=== PATIENT | female | born 1935 | race Caucasian/White ===

== ENCOUNTER → 2017-11-18 13:23 | Outpatient (CLI) | payer MEDICARE, SELFPAY ==
--- NOTE | 2017-11-18 14:00 | ECHOD_ITS ---
Reason For Study: CAD Procedure This was a 2D Doppler, Color Flow transthoracic echocardiogram. Exam performed in department. Left Ventricle Normal size and thickness. The estimated ejection fraction is 65 %. Stage 1 diastolic dysfunction. No regional wall motion abnormalities noted. Right Ventricle Normal size and thickness. Normal systolic function. Atria Normal left atrium. Normal right atrium. Normal atrial septum. Mitral Valve Mild diffuse mitral valve thickening. Mild (1+) mitral valve insufficiency. Tricuspid Valve Normal tricuspid valve. Mild (1+) tricuspid valve insufficiency. Right ventricular systolic pressure estimated to be 36 mmHg. Aortic Valve Normal aortic valve. Trisinus/trileaflet aortic valve. Pulmonic Valve Normal pulmonic valve. Great Vessels Normal aortic root. Normal arch. Normal inferior vena cava. Inferior vena cava collapse with sniff. Pericardium/Pleural No pericardial effusion. MMode/2D Measurements & Calculations LVIDd: 4.7 cm IVSd: 0.74 cm Ao root diam: 3.0 cm LVIDs: 3.0 cm LVPWd: 0.75 cm LA dimension: 3.3 cm RVDd: 3.2 cm FS: 36.3 % LAV(MOD-bp): 38.0 ml LA A4 area: 15.1 cm2 RA A4 area: 13.6 cm2 LAV(MOD-bp) Indexed: 23.9 ml/m2 LAV(MOD-sp2): 40.6 ml LAV(MOD-sp4): 33.6 ml Doppler Measurements & Calculations MV E max cristina: 73.3 cm/sec Ao V2 max: 126.1 cm/sec LV V1 max: 86.7 cm/sec MV A max cristina: 84.2 cm/sec Ao max P.4 mmHg LV V1 max P.0 mmHg MV E/A: 0.87 PA V2 max: 87.5 cm/sec PI end-d cristina: 145.7 cm/sec TR max cristina: 284.7 cm/sec TR max P.4 mmHg Interpretation Summary The estimated ejection fraction is 65 %. Stage 1 diastolic dysfunction. Mild (1+) mitral valve insufficiency. Mild (1+) tricuspid valve insufficiency. Right ventricular systolic pressure estimated to be 36 mmHg. There is no comparison study available. Ordering Physician: David Rangel Referring Physician: KIANA SALGADO Performed By: Fay Rose, JOSE, RVT
== END ==
PROVIDERS: Family Provider Internal Medicine; PCP Internal Medicine; Visit Provider Internal Medicine Cardiovascular Disease
DX: I51.9 Heart disease, unspecified (principal)
CPT/HCPCS: 93306

== ENCOUNTER → 2017-12-03 12:21 | Outpatient (CLI) | payer MEDICARE, SELFPAY ==
--- NOTE | 2017-12-03 13:00 | STE_ITS ---
Reason For Study: CAD/ASHD Stress Results Protocol: Syed Protocol Maximum Predicted HR: 138 bpm Target HR: 117 bpm% Max imum Predicted HR: 106 % DurationHeart Rate Stage (mm:ss) (bpm) BP BASELINE 69 148/82 STAGE 1 3:00 13 4 180/62 STAGE 2 3:00 14 6 192/60 RECOVERY 86 178/90 Stress Duration: 6:00 mm:ss Maximum Stress HR: 146 bpm Baseline Echocardiogram Findings The estimated ejection fraction is 55 %. Stress Echo Wall motion Data Resting WMIntermediate WMStress WM Resting Wall Motion Wall Motion Stress No regional wall motion Mid-Anterior : Mildly abnormalities noted. hypokinetic. Lateral [place] : Hypokinetic. EKG Data NSR wtih LBBB. The patient exercised according to the regular Syed protocol for a total duration of 6:01. The maximum heart rate attained was 148 beats per minute. This was 107% of maximum predicted heart rate. The patient exercised into stage 3 of the Syed protocol. During stress, there were no ST or T wave changes noted to suggest ischemia. No clinical angina was noted. Interpretation Summary The estimated ejection fraction is 55 %. Mid-Anterior : Mildly hypokinetic Lateral [place] : Hypokinetic Abnormal, adequate, treadmill echocardiogram. Positive for ischemia by echocardiographic criteria. Patient developed mid anterior and, lateral, and apical hypokinesis at peak exercise. No anginal symptoms noted. Rare PVC noted. Hypertensive blood pressure response to exercise. Average exercise capacity for age. Test terminated due to the attainment of target heart rate. Patient tolerated procedure well. No complications. Ordering Physician: David Rangel Referring Physician: David Rangel Performed By: Fay Rose, RDCS, RVT
== END ==
PROVIDERS: Family Provider Internal Medicine; PCP Internal Medicine; Referring Provider Internal Medicine Cardiovascular Disease; Visit Provider Internal Medicine Cardiovascular Disease
DX: I25.10 Atherosclerotic heart disease of native coronary artery without angina pectoris (principal); I27.20 Pulmonary hypertension, unspecified; E78.5 Hyperlipidemia, unspecified; I44.7 Left bundle-branch block, unspecified; I10 Essential (primary) hypertension
CPT/HCPCS: 93017; 93350

== ENCOUNTER → 2017-12-16 09:51 | Outpatient (CLI) | payer MEDICARE, SELFPAY ==
--- NOTE | 2017-12-16 10:15 | RAD_ITS ---
XR Chest 2 Views INDICATION: pulmonary hypertension COMPARISON: None FINDINGS: Heart size and pulmonary vascularity are within normal limits. The lungs are clear without evidence of airspace consolidation or pleural effusion. The osseous structures are grossly unremarkable. RAD/Chest PA and Lateral IMPRESSION: No radiographic evidence of acute intrathoracic disease. at 1955 Reported and signed by: Candy Justin MD Electronically Signed: Candy Justin MD at 18:54 EST Tel , Service support ,
[2017-12-16 11:20] LABS: Absolute Neutrophil Count 3.8 X10^3/uL (2.0-7.7); Basophil# 0.03 X10^3/uL; Basophil% 0.6 % (0-1); Eosinophil# 0.29 X10^3/uL; Eosinophils% 5.5 % (0-5); Hematocrit 38.8 % (37-47); Hemoglobin 13.2 g/dl (12.0-15.0); Lymphocyte % 16.9 % (19-41); Mean Corpuscular Hgb 32.7 pg (27.0-32.0); Mean Platelet Vol. 9.6 fl (6.2-12.0); Monocyte# 0.27 X10^3/uL; Monocyte% 5.1 % (0-10); Neutrophil # 3.81 X10^3/uL (2.7-7.7); Neutrophil % 71.7 % (47-70); POSITIVE COUNT NO; POSITIVE DIFFERENTIAL NO; POSITIVE MORPHOLOGY NO; Platelet Count 237 K/mm3 (150-450); RBC Distribution Width CV 12.2 % (11.6-14.6); RBC Distribution Width SD 41.5 fl (35.1-43.9); Red Blood Count 4.04 M/mm3 (4.2-5.4); White Blood Count 5.3 K/mm3 (4.4-11.0)
[2017-12-16 11:31] LABS: International Normalized Ratio 1.1; Prothrombin Time (Protime)PT. 14.4 SECONDS (11.7-14.9)
[2017-12-16 11:32] LABS: Partial Thromboplast Time 28.1 Seconds (24.1-36.2)
[2017-12-16 11:42] LABS: Anion Gap 6 (5-15); BUN 14 mg/dL (7-18); BUN/Creat Ratio 16.1 RATIO (10-20); Calcium,Total 9.2 mg/dL (8.5-10.1); Chloride 104 mmol/L (98-107); Creatinine, Serum 0.87 mg/dL (0.55-1.02); EST Glomerular Filtration Rate 66 mL/min (>60); Est Glom Filt Rate - Afr Amer 80 mL/min (>60); Glucose 94 mg/dL (74-106); Potassium 4.5 mmol/L (3.5-5.1); Sodium Level 142 mmol/L (136-145)
== END ==
PROVIDERS: Family Provider Internal Medicine; PCP Internal Medicine; Visit Provider Internal Medicine Cardiovascular Disease
DX: R94.39 Abnormal result of other cardiovascular function study (principal); I36.1 Nonrheumatic tricuspid (valve) insufficiency; I34.0 Nonrheumatic mitral (valve) insufficiency; I27.20 Pulmonary hypertension, unspecified; E78.5 Hyperlipidemia, unspecified; E11.9 Type 2 diabetes mellitus without complications; I44.7 Left bundle-branch block, unspecified; I10 Essential (primary) hypertension; I25.10 Atherosclerotic heart disease of native coronary artery without angina pectoris; Z95.5 Presence of coronary angioplasty implant and graft
CPT/HCPCS: 36415; 71046; 80048; 85025; 85610; 85730

== ENCOUNTER 2017-12-23 07:43 | Day surgery (SDC) | payer MEDICARE, SELFPAY ==
[2017-12-22 11:05] VITALS: BMI 21.6
[2017-12-23] VITALS (22 sets, daily range): BP systolic 124–188; BP diastolic 48–75; PULSE 55–82; RESP 12–25; TEMP 36.6–37.2; O2SAT 93–100; BMI 23.0; BMI 21.6
--- NOTE | 2017-12-23 09:36 | ED.RN ---
DR FULLER ASKED THAT THE NS RUN @ 150 FOR THE ENTIRE LITER AND THE NITRO DRIP RUN AT 5 MCG THEN DC AT NOON
--- NOTE | 2017-12-23 10:02 | EKG12_ITS ---
Test Reason : POST CATH Blood Pressure : / mmHG Vent. Rate : 063 BPM Atrial Rate : 063 BPM P-R Int : 220 ms QRS Dur : 140 ms QT Int : 448 ms P-R-T Axes : 077 -20 099 degrees QTc Int : 458 ms Sinus rhythm with 1st degree A-V block Left bundle branch block Abnormal ECG When compared with ECG of 07-NOV-2006 08:24, Premature ventricular complexes are no longer Present ID interval has increased Confirmed by MELLY RANGEL ([id number]), department editor GEOVANNY SAWYER ([id number]) on 12/28/2017 2:32:23 PM Referred By: Melly Rangel Confirmed By:MELLY RANGEL
[2017-12-23 10:31] LABS: ACT Activated Clotting Time 235 sec (74-137)
[2017-12-23 10:56] LABS: Hematocrit 35.8 % (37-47); Mean Corp Hgb Conc 33.5 g/gl (32-36); Mean Corpuscular Hgb 32.3 pg (27.0-32.0); Mean Corpuscular Volume 96.5 fL (81-99); Mean Platelet Vol. 9.1 fl (6.2-12.0); Platelet Count 226 K/mm3 (150-450); RBC Distribution Width CV 12.2 % (11.6-14.6); RBC Distribution Width SD 41.6 fl (35.1-43.9); Red Blood Count 3.71 M/mm3 (4.2-5.4); White Blood Count 6.2 K/mm3 (4.4-11.0)
[2017-12-23 10:59] LABS: Scan Indicated on CBC? Y/N NO
[2017-12-23] MEDS: 0.9% Normal Saline 1,000 ML 150 ML IV (11:00)
[2017-12-23 11:02] LABS: CPK Total, Creatine Kinase 102 U/L (26-192)
--- NOTE | 2017-12-23 11:17 | CRPHASE1 ---
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:: David Rangel Admit Date:: 12/23/17 Risk Factors/Lifestyle Smoking Status: Never smoker Hx Hypertension: Yes - ON MEDS Hx Diabetes Mellitus Type 2: Yes - DIET ONLY Height: 1.6 m Weight:: 55.338 kg BMI: 21.6 Post-Menopausal: Yes ETOH: No Caffeine: Yes Substance Abuse: No Family History: Family History (Last Updated 12/16/17 @ 08:48 by Burak Tatum) Mother Diabetes Hypertension Father Diabetes CVA (cerebral vascular accident) Daughter Diabetes Pulmonary hypertension Phase I Education Given On:: [place], Nutrition, Antiplatelet medication, CHF, Diabetes - Type II Hospital Course Cardiac Cath Date:: 12/23/17 Medical/Surgical History [place]:: No CAD:: Yes Diabetes Type II:: Yes Hypertension:: Yes Dyslipidemia:: Yes PTCA:: Yes - 3 YEARS AGO Discharge/Home/Social Eval Marital Status: Patient Lives With::
[2017-12-23] MEDS: Labetalol 100 MG Tablet PO ×2 (11:18→18:52)
--- NOTE | 2017-12-23 11:27 | CRPHASE1_ITS ---
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:: David Rangel Admit Date:: 12/23/17 Risk Factors/Lifestyle Smoking Status: Never smoker Hx Hypertension: Yes - ON MEDS Hx Diabetes Mellitus Type 2: Yes - DIET ONLY Height: 1.6 m Weight:: 55.338 kg BMI: 21.6 Post-Menopausal: Yes ETOH: No Caffeine: Yes Substance Abuse: No Family History: Family History (Last Updated 12/16/17 @ 08:48 by Burak Tatum) Mother Diabetes Hypertension Father Diabetes CVA (cerebral vascular accident) Daughter Diabetes Pulmonary hypertension Phase I Education Given On:: [place], Nutrition, Antiplatelet medication, CHF, Diabetes - Type II Hospital Course Cardiac Cath Date:: 12/23/17 Medical/Surgical History [place]:: No CAD:: Yes Diabetes Type II:: Yes Hypertension:: Yes Dyslipidemia:: Yes PTCA:: Yes - 3 YEARS AGO Discharge/Home/Social Eval Marital Status: Patient Lives With::
--- NOTE | 2017-12-23 11:28 | CRPH1.INSTRU ---
General Education CAD and cardiac anatomy and function:: Patient communicates acknowledgment, Family communicates acknowledgment Explanation of diagnoses and procedures:: Patient communicates acknowledgment, Family communicates acknowledgment Sign/Symptoms of NH:: Patient communicates acknowledgment, Family communicates acknowledgment Antiplatelet therapy: Patient communicates acknowledgment, Family communicates acknowledgment Proper use of NTG-SL: Patient communicates acknowledgment, Family communicates acknowledgment Emergency procedures and activation of EMS: Patient communicates acknowledgment, Family communicates acknowledgment Compliance of all prescribed medications: Patient communicates acknowledgment, Family communicates acknowledgment Smoking Patient Nicotine/Smoking Risk Factors Are:: Never smoked Dyslipidemia Recommendations Include:: Lipid profile not available - ON MEDS Overweight/Obesity Patient Overweight/Obesity Risk Factors Are:: BMI Normal [24-29 & > 65 years old] - ON DIET FOR DIABETES Overweight/Obesity:: Patient communicates acknowledgment, Family communicates acknowledgment - ON DIET FOR DIABETES Hypertension Recommendations Include:: Maintain BP <130/85 Hypertension:: Patient communicates acknowledgment, Family communicates acknowledgment - ON MEDS Heart Disease Patient Heart Disease Risk Factors Are:: Family history of heart disease < 65 years old, Previous cardiac event Recommendations Include:: Educated family members of their risk Heart Disease Response Code:: Patient communicates acknowledgment, Family communicates acknowledgment Diabetes Patient Diabetes Risk Factors Are:: Elevated blood sugars Recommendations Include:: Maintain fasting blood sugars 70-110 md/dL, Maintain HgbA1c of 6% or less Diabetes:: Patient communicates acknowledgment, Family communicates acknowledgment - DIET ONLY Metabolic Syndrome Patient Metabolic Syndrome Risk Factors Are [3 of 5]:: Fasting blood sugar > 100 mg/dL, Hypertension Recommendations Include:: Patient is diabetic Metabolic Syndrome Response Code:: Patient communicates acknowledgment, Family communicates acknowledgment Sedentary Recommendations Include:: Benefits of regular exercise, Discussed home walking program Sedentary Response Code:: Patient communicates acknowledgment, Family communicates acknowledgment Stress Patient Stress Risk Factors Are:: Patient denies stress as a risk factor
--- NOTE | 2017-12-23 11:31 | CRPH1.INST_ITS ---
General Education CAD and cardiac anatomy and function:: Patient communicates acknowledgment, Family communicates acknowledgment Explanation of diagnoses and procedures:: Patient communicates acknowledgment, Family communicates acknowledgment Sign/Symptoms of [place]:: Patient communicates acknowledgment, Family communicates acknowledgment Antiplatelet therapy: Patient communicates acknowledgment, Family communicates acknowledgment Proper use of NTG-SL: Patient communicates acknowledgment, Family communicates acknowledgment Emergency procedures and activation of EMS: Patient communicates acknowledgment , Family communicates acknowledgment Compliance of all prescribed medications: Patient communicates acknowledgment, Family communicates acknowledgment Smoking Patient Nicotine/Smoking Risk Factors Are:: Never smoked Dyslipidemia Recommendations Include:: Lipid profile not available - ON MEDS Overweight/Obesity Patient Overweight/Obesity Risk Factors Are:: BMI Normal [24-29 & > 65 years old ] - ON DIET FOR DIABETES Overweight/Obesity:: Patient communicates acknowledgment, Family communicates acknowledgment - ON DIET FOR DIABETES Hypertension Recommendations Include:: Maintain BP <130/85 Hypertension:: Patient communicates acknowledgment, Family communicates acknowledgment - ON MEDS Heart Disease Patient Heart Disease Risk Factors Are:: Family history of heart disease < 65 years old, Previous cardiac event Recommendations Include:: Educated family members of their risk Heart Disease Response Code:: Patient communicates acknowledgment, Family communicates acknowledgment Diabetes Patient Diabetes Risk Factors Are:: Elevated blood sugars Recommendations Include:: Maintain fasting blood sugars 70-110 md/dL, Maintain HgbA1c of 6% or less Diabetes:: Patient communicates acknowledgment, Family communicates acknowledgment - DIET ONLY Metabolic Syndrome Patient Metabolic Syndrome Risk Factors Are [3 of 5]:: Fasting blood sugar > 100 mg/dL, Hypertension Recommendations Include:: Patient is diabetic Metabolic Syndrome Response Code:: Patient communicates acknowledgment, Family communicates acknowledgment Sedentary Recommendations Include:: Benefits of regular exercise, Discussed home walking program Sedentary Response Code:: Patient communicates acknowledgment, Family communicates acknowledgment Stress Patient Stress Risk Factors Are:: Patient denies stress as a risk factor
--- NOTE | 2017-12-23 12:42 | CL.I_ITS ---
Patient Name: ISABEL GRAY Study Date: 12/23/2017 Performing: Ht: 63 inches 160.02 cm : 1935 Wt: 122 lbs 55.338 kg Age: 82 Gender: female BSA: 1.57 PROCEDURE(S) PERFORMED FW28-AFT/COR/LV TC02-CMG W OR WO PTCA, SINGLE CORONARY ARTERY CLINICAL PROFILE AND CO-MORBIDITIES INDICATIONS: Unstable Angina Stress/Imaging Stress Echocardiogram: Yes Result: Positive Intermediate Risk Stress Echocardiogra m: Positive Intermediate Risk Angina Classification Anginal Classification w/in 2 Weeks: CCS III CAD Presentations: Other: Dyspnea on exertion. 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 Successful Mynx deployment. RECOMMENDATIONS Referred for immediate PCI Highly recommend quitting all tobacco products Follow up with primary echo vascular tech Risk factor modification JOE Indefinitleangelica Plavix for at least 12 months Routine post interventional care Refer for Outpatient Cardiac Rehab Manual sheath removal per protocol Follow up with Dr. Juan Carlos Woods Plavix for at least 12 months DESCRIPTION OF PROCEDURE The patient arrived to the procedure lab. The risks and benefits of the procedure as well as a full d escription of our services here and lack of surgical backup were fully explained to the patient and/o r their significant other prior to the catheterization. The Timeout was completed, verifying the owen ect patient and procedure. The patient's procedural site was prepped and draped in the usual fashion. Local anesthetic was given subcutaneously to right groin region with Lidocaine 2%. Using a modified Seldinger technique, arterial access was obtained via the right femoral artery, a 4Fr sheath was inse rted. Left Coronary Artery selective angiography was performed in multiple views using a 4 Fr. JL5 c atheter. Right Coronary Artery selective angiography was then performed in multiple views using a 4 F r. 3DRC catheter. Left Ventriculography was performed in VALDOVINOS projection using a 4 Fr. Pigtail cathete r. LV to AO pullback pressures were then recordedThe images were reviewed and options discussed. A de cision was then made to proceed with an Intervention, IVUS or other adjunct procedure. Arterial sheath was exchanged for a 6 Fr Sheath EBU 3.5 Guide catheter was inserted and engaged into the LCA. BMW Guide wire was advanced to the LAD. Angiogram performed pre balloon dilatation. 2.0x8 em erge Balloon catheter was advanced across lesion in the LAD, proximal. PTCA balloon inflated at 10 at ms for 15 secs Angiogram performed post balloon dilatation. 3.0x12 synergy Drug Eluting stent was adv anced across the lesion in the LAD, proximal. 3.0x8 NC emerge Balloon catheter was inserted post sten t. Angiogram performed post stent deployment.. Contrast was injected through the sheath and the Right Iliac and Femoral artery were assessed for possible closure device.. The arterial sheath was pulled and a Mynx closure device was deployed for hemostasis. CORONARY ANGIOGRAPHY DOMINANCE: Right Dominant LEFT HEART ASSESSMENT Left Ventricular Ejection Fraction: by LV Gram 50-55 % Depressed Left Ventricular systolic function Normal Left Ventricular End Diastolic Pressure Anterior Hypokinesis - Mild LEFT MAIN: Angiographically normal LEFT ANTERIOR DECENDING ARTERY: PROX LAD: 75 % Stenosis MID LAD: Instent restenosis 10 % CIRCUMFLEX ARTERY: Mild luminal irregularities less than 30% RIGHT CORONARY ARTERY: MID RCA: Moderate luminal irregularities up to 50% INTERVENTION INFORMATION LESION SITE: LAD (Proximal) Pre intervention FAIZAN flow: 3 Post Stenosis: 0 % Post intervention FAIZAN flow: 3 Lesion Devices: Weeks .014 BMW Norris Straight 190cm Medtronic 6 Fr EBU3.5 100cm Guide Catheter Ty Sci EMERGE MR 2.00x08 BALLOON Ty Sci Synergy MR CJ 3.00x12 Ty Sci NC EMERGE MR 3.00x08 BALLOON Lesion Complexity: Non-High/Non-C, lesion at bifurcation: No, thrombus present: No, lesion length: 12 mm, culprit lesion: Yes Pre Stenosis: 75 % PROCEDURE: Drug Eluting Stent with pre and post dilatation COMPLICATIONS No Complications PROCEDURE MEDICATIONS Versed 1 mg IV Oxygen: 2 L/min via nasal cannula Heparin 6000 unit(s) IV 12/23/2017 09:04:54 Nitro 200 mcg IC 12/23/2017 09:08:31 Nitro glycerin 25mg / 250ml D5W @ 5 mcg/min IV started 12/23/2017 09:09:57 IV Fluids: .9 NaCl increased to open ml/hr 12/23/2017 09:10:05 IV Fluids: .9 NaCl decreased to 150 ml/hr 12/23/2017 09:20:04 SUMMARY OF HEMODYNAMIC DATA Time AIR REST ECG 08:24:14 ECG 08:41:09 AO 195/60 (109) SA 08:59:25 LV 192/-17, 15 09:04:24 LV 193/-16, 10 09:04:31 LVp 198/-3, 19 09:05:10 AOp 192/50 (100) 09:05:15
[2017-12-23 13:11] LABS: M R Staph aureus DNA By PCR Negative (Negative); Probe Check PASS; Specimen Processing Control PASS
--- NOTE | 2017-12-23 14:44 | NURSING ---
NO SUPPLEMENT ORDERED BECAUSE NOT INDICATED. PT NORMAL WEIGHT ENTERED INCORRECTLY
[2017-12-23 17:18] LABS: Hematocrit 33.6 % (37-47); Hemoglobin 11.1 g/dl (12.0-15.0); Mean Corpuscular Hgb 31.7 pg (27.0-32.0); Mean Platelet Vol. 8.7 fl (6.2-12.0); Platelet Count 185 K/mm3 (150-450); RBC Distribution Width CV 12.8 % (11.6-14.6); RBC Distribution Width SD 44.1 fl (35.1-43.9)
[2017-12-23 17:26] LABS: CPK Total, Creatine Kinase 82 U/L (26-192)
[2017-12-23 17:51] LABS: Scan Indicated on CBC? Y/N NO
[2017-12-23] MEDS: Lisinopril 20 MG Tablet PO (18:52)
--- NOTE | 2017-12-23 19:04 | NURSING ---
reviewed Pavel Alexander RN charting and agree with her assessment findings
[2017-12-23] MEDS: Atorvastatin Calcium 80 MG Tablet PO (21:37)
[2017-12-23 22:52] LABS: Hematocrit 33.3 % (37-47); Hemoglobin 10.9 g/dl (12.0-15.0); Mean Corp Hgb Conc 32.7 g/gl (32-36); Mean Corpuscular Hgb 31.8 pg (27.0-32.0); Mean Corpuscular Volume 97.1 fL (81-99); Platelet Count 220 K/mm3 (150-450); RBC Distribution Width CV 12.3 % (11.6-14.6); RBC Distribution Width SD 41.8 fl (35.1-43.9); Red Blood Count 3.43 M/mm3 (4.2-5.4); Scan Indicated on CBC? Y/N NO
[2017-12-24] VITALS (16 sets, daily range): BP systolic 96–188; BP diastolic 47–126; PULSE 58–84; RESP 12–115; TEMP 36.4–36.7; O2SAT 94–100
[2017-12-24] MEDS: diazePAM 5 MG Tablet PO (01:33)
[2017-12-24 04:52] LABS: Hematocrit 34.3 % (37-47); Hemoglobin 11.6 g/dl (12.0-15.0); Mean Corp Hgb Conc 33.8 g/gl (32-36); Mean Corpuscular Hgb 32.7 pg (27.0-32.0); Mean Corpuscular Volume 96.6 fL (81-99); Mean Platelet Vol. 9.3 fl (6.2-12.0); Platelet Count 215 K/mm3 (150-450); RBC Distribution Width CV 12.3 % (11.6-14.6); RBC Distribution Width SD 41.7 fl (35.1-43.9); Red Blood Count 3.55 M/mm3 (4.2-5.4); White Blood Count 6.8 K/mm3 (4.4-11.0)
[2017-12-24 04:59] LABS: Scan Indicated on CBC? Y/N NO
[2017-12-24 05:04] LABS: Anion Gap 6 (5-15); BUN 12 mg/dL (7-18); Calcium,Total 8.5 mg/dL (8.5-10.1); Chloride 105 mmol/L (98-107); Creatinine, Serum 0.75 mg/dL (0.55-1.02); EST Glomerular Filtration Rate 79 mL/min (>60); Est Glom Filt Rate - Afr Amer 95 mL/min (>60); Estimated Creatinine Clearance 35.88 ml/min; Glucose 91 mg/dL (74-106); Potassium 4.2 mmol/L (3.5-5.1); Sodium Level 141 mmol/L (136-145)
--- NOTE | 2017-12-24 05:55 | EKG12_ITS ---
Test Reason : AM Blood Pressure : / mmHG Vent. Rate : 057 BPM Atrial Rate : 057 BPM P-R Int : 212 ms QRS Dur : 140 ms QT Int : 442 ms P-R-T Axes : 134 -27 153 degrees QTc Int : 430 ms Sinus bradycardia Left bundle branch block Abnormal ECG When compared with ECG of 23-DEC-2017 09:57, MANUAL COMPARISON REQUIRED, DATA IS UNCONFIRMED Confirmed by MELLY RANGEL ([id number]), technical writer and editor GEOVANNY SAWYER ([id number]) on 12/28/2017 2:32:42 PM Referred By: Melly Rangel Confirmed By:MELLY RANGEL
--- NOTE | 2017-12-24 07:56 | PCM.DC.CCA ---
Discharge Diet: No Restrictions - You may continue your normal diet. Discharge Activity: - - Do not lift anything greater than 10 lbs for 3 days May shower in (days): 1 - No tub baths for 5 days Lifting Restrictions: 10 pounds and also avoid any pushing or pulling for 3 days after your test. Call your doctor if your incision/area has: Increased Pain/ Swelling, Increased Redness, Foul Smelling Discharge, Swelling at the incision site Call your doctor if you observe: Fever of 101 or Higher, Shortness of breath, Chest pain Remove Dressing in (days):: 1 Cleanse incision/area with: Soap & Water Additional Dressing/Incision Instructions:: Keep the dressing (bandage) on until the next morning. You may then shower, but do not take a tub bath for 5 days after your test. It is normal to have some tenderness and discomfort at the puncture site. Sometimes bruising also occurs. However, if pain, numbness, or coldness occurs below the puncture site (in your leg, toes, arms or fingers) call your doctor at once. You may have a small, marble sized knot at the puncture site. This is normal. Do not rub it. It will go away in 4-6 weeks. Bleeding can occur from the area where the puncture was done. Blood may spurt or drip from the site. If blood spurts, apply pressure right away to stop bleeding and call 911. Although rare, bleeding into the tissue (hematoma) can also occur. If this happens, a large, firm area goose egg under the skin will appear. If any of these occur, lie down as flat as you can and have someone apply firm pressure to the cath site with a gauze pad or a clean washcloth for 10-15 minutes. Call 911 or go to the Emergency Department. Additional Instructions: You were started on Isosorbide to help control your BP. Monitor your BP reading at home. When I see you in 2 weeks we can re-evaluate your medications. As a reminder, you will need to stay on Plavix for at least one year before it is stopped. When I see you we can further discuss cardiac rehab. Allergies/Adverse Reactions: Allergies Penicillins Allergy (Unknown, Verified 12/16/17 09:24) Unknown Medications to take at Discharge ascorbate calcium 500 mg tablet 500 mg PO QDAY 10/30/17 aspirin 81 mg tablet,delayed release 81 mg PO QDAY 10/30/17 atorvastatin 80 mg tablet 80 mg PO QDAY 10/30/17 cholecalciferol (vitamin D3) 400 unit capsule 400 unit PO QDAY 10/30/17 labetalol 100 mg tablet 100 mg PO BID 10/30/17 lisinopril 20 mg tablet 20 mg PO QDAY 10/30/17 meclizine 25 mg tablet 25 mg PO TID PRN tab 10/30/17 nitroglycerin 0.4 mg sublingual tablet 0.4 mg SUBLINGUAL Q5-15M PRN 10/30/17 clopidogrel 75 mg tablet 75 mg PO QDAY #30 tab 12/16/17 Isosorbide Mononitrate [Imdur] 30 mg PO DAILY #30 tab 12/24/17 The following prescriptions were given: Isosorbide Mononitrate [Imdur] 30 mg PO DAILY #30 tab Primary Care Physician: Mary Lindo MD [Primary Care Provider] - Please follow up with your Primary Care Physician in: 4 weeks Please Follow Up With: Estela Quispe PA When: 01/07 at 1pm Cardiac Rehabilitation Info Cardiac Rehabilitation Program Information: Cardiac Rehabilitation is important for patients like you who are recovering from a heart problem. Cardiac rehabilitation programs are recognized as integral to the continued care of the patient with coronary heart disease. The cardiac rehabilitation program is designed to optimize a patient's physical, psychological, and social functioning. Health congregational care pastor work in cardiac rehabilitation programs and assist you with getting the treatments you need to get stronger and healthier - like exercise, healthy eating habits, and medications. Cardiac rehabilitation has been show to help people with heart problems live longer and have better life enjoyment than people who do not go to cardiac rehabilitation. Please contact the Cardiac Rehabilitation Program at [facility] at in two weeks if you have not heard from them.
[2017-12-24] MEDS: Labetalol 100 MG Tablet PO (08:41)
[2017-12-24] MEDS: Aspirin E.C. 81 MG Tablet PO (08:41)
[2017-12-24] MEDS: Lisinopril 20 MG Tablet PO (08:41)
[2017-12-24] MEDS: Isosorbide Mononitrate 30 MG Tablet PO (08:42)
[2017-12-24] MEDS: Clopidogrel Bisulfate 75 MG Tablet PO (08:42)
== END 2017-12-24 12:36 | disposition home or self-care (01) ==
LOC: CLSP 07:44 → ICU 09:31
PROVIDERS: Family Provider Internal Medicine; PCP Internal Medicine; Visit Provider Internal Medicine Cardiovascular Disease
DX: T82.858A Stenosis of other vascular prosthetic devices, implants and grafts, initial encounter (principal); I25.10 Atherosclerotic heart disease of native coronary artery without angina pectoris; R06.02 Shortness of breath; I10 Essential (primary) hypertension; E78.5 Hyperlipidemia, unspecified; I44.7 Left bundle-branch block, unspecified; E11.9 Type 2 diabetes mellitus without complications; Z79.82 Long term (current) use of aspirin; Z95.5 Presence of coronary angioplasty implant and graft; Z87.891 Personal history of nicotine dependence
CPT/HCPCS: 80048; 82550; 85027; 85347; 87641; 92928; 93005; 93458; 97802; 99152; 99153; C1760; J7030; J7040; C1725; C1769; C1874; C1887; C1894; C9600

== ENCOUNTER → 2018-01-07 15:24 | Outpatient (CLI) | payer MEDICARE, SELFPAY ==
[2017-12-23 11:21] VITALS: BMI 21.6
== END ==
PROVIDERS: Visit Provider Physician Assistant Medical
DX: L08.9 Local infection of the skin and subcutaneous tissue, unspecified (principal); T14.8XXA Other injury of unspecified body region, initial encounter
CPT/HCPCS: 87070; 87075; 87077; 87186; 87205

== ENCOUNTER 2018-04-10 19:13 | Emergency (ER) | payer MEDICARE, SELFPAY ==
[2017-12-23 11:21] VITALS: BMI 21.6
[2018-04-10 19:13] VITALS: BP 205/86; PULSE 79; RESP 18; TEMP 36.9; O2SAT 98; BMI 22.1
--- NOTE | 2018-04-10 19:18 | ED.RN ---
RN CALLED FOR EKG, PULLED OLD EKG'S FOR
--- NOTE | 2018-04-10 19:20 | EKG12_ITS ---
Test Reason : PALPITATIONS Blood Pressure : / mmHG Vent. Rate : 073 BPM Atrial Rate : 073 BPM P-R Int : 210 ms QRS Dur : 142 ms QT Int : 416 ms P-R-T Axes : 071 -15 126 degrees QTc Int : 458 ms Sinus rhythm with 1st degree A-V block with frequent Premature ventricular complexes Left bundle branch block Abnormal ECG Confirmed by GATITO WRIGHT, KUMAR ([id number]), make up editor GEOVANNY SAWYER ([id number]) on 04/15/2018 3:46:11 PM Referred By: CHECO/PADMINI Confirmed By:KUMAR MEDEROS MD
--- NOTE | 2018-04-10 19:39 | ED.DCSUM_ITS ---
- ER Visit Summary Date of Service: 04/10/18 Chief Complaint: Palpitations History of Present Illness: The patient is a [address] of CAD with cardiac stent on Plavix. I will see him back controlled diabetes with hypertension and high cholesterol. States when in [employer]ental [employer] around 5 PM started having palpitations. She denies any chest pain. She denies any shortness of breath. No leg pain or swelling. She denies any episodes where she felt like she might pass out or was feeling lightheaded. She has had these years ago which were benign. Physical Examination: Well-appearing older female. Vital signs are stable and afebrile. She is in no acute distress. Pulse ox 90% room air no signs of hypoxia. H EENT exam unremarkable. Neck nontender no lymphadenopathy. Lungs clear to auscultation bilaterally. Heart regular rhythm occasional PVC. No murmur. Abdomen soft nontender. She is moving all 4 extremities. Neurovascular intact. Strong radial pulses. Calves are nontender without edema or cords. Neurologically she is awake alert with no focal motor deficits. Test Results: EKG shows a sinus rhythm rate is 73 with PVCs. She also has a known left bundle branch block which is unchanged from prior. CBC normal. BMP normal. Troponin normal. Emergency Department Course and Treatment: Repeat exam patient doing well at 2042. Exam, history and lab work consistent with PVCs. She will be discharged home. Treatment Plan: Discharge and follow-up with primary care physician as needed. Disposition: Discharge Impression: Acute palpitations secondary to PVCs. History of CAD with cardiac stent Anticoagulated on Plavix. This note was generated with Anna Lozabai dictation software. It may contain incorrect words, spelling, and punctuation that were not noted in review of the chart prior to signing ED Disposition - Plan for ED Patient: Chief Complaint: Palpitations Referrals: Mary Lindo MD [Primary Care Provider] -
[2018-04-10 20:08] LABS: Absolute Lymphocyte Count 1.35 X10^3/ul (0.83-4.51); Absolute Neutrophil Count 4.1 X10^3/uL (2.0-7.7); Basophil# 0.03 X10^3/uL; Basophil% 0.5 % (0-1); Eosinophil# 0.48 X10^3/uL; Eosinophils% 7.7 % (0-5); Hematocrit 37.3 % (37-47); Hemoglobin 12.4 g/dl (12.0-15.0); Lymphocyte # 1.35 X10^3/ul (4.0); Lymphocyte % 21.6 % (19-41); Mean Corp Hgb Conc 33.2 g/gl (32-36); Mean Corpuscular Hgb 31.8 pg (27.0-32.0); Mean Corpuscular Volume 95.6 fL (81-99); Mean Platelet Vol. 9.2 fl (6.2-12.0); Monocyte# 0.32 X10^3/uL; Monocyte% 5.1 % (0-10); Neutrophil # 4.06 X10^3/uL (2.7-7.7); Neutrophil % 64.9 % (47-70); Platelet Count 268 K/mm3 (150-450); RBC Distribution Width CV 12.6 % (11.6-14.6); RBC Distribution Width SD 43.3 fl (35.1-43.9); White Blood Count 6.3 K/mm3 (4.4-11.0)
[2018-04-10 20:12] LABS: Anion Gap 7 (5-15); BUN 18 mg/dL (7-18); BUN/Creat Ratio 18.2 RATIO (10-20); Calcium,Total 8.9 mg/dL (8.5-10.1); Chloride 104 mmol/L (98-107); Creatinine, Serum 0.99 mg/dL (0.55-1.02); EST Glomerular Filtration Rate 57 mL/min (>60); Est Glom Filt Rate - Afr Amer 69 mL/min (>60); Estimated Creatinine Clearance 36.24 ml/min; Glucose 141 mg/dL (74-106); Potassium 4.1 mmol/L (3.5-5.1); Sodium Level 140 mmol/L (136-145)
[2018-04-10 20:14] LABS: POSITIVE COUNT NO; POSITIVE DIFFERENTIAL NO; POSITIVE MORPHOLOGY NO
[2018-04-10 20:35] VITALS: BP 135/57; PULSE 68; RESP 15; O2SAT 94
--- NOTE | 2018-04-10 20:43 | ED.DEP ---
ED Disposition - Plan for ED Patient: Disposition: Home or Assisted Living Chief Complaint: Palpitations Instructions: Premature Ventricular Contractions Referrals: Mary Lindo MD [Primary Care Provider] - 1 Week if not improving Additional Instructions: Follow-up with your doctor as needed. Your lab work today was unremarkable except for premature ventricular contractions on your EKG which is a benign palpitation.
[2018-04-10 20:47] VITALS: BP 139/54; PULSE 71; RESP 15; O2SAT 96
== END 2018-04-10 20:51 | disposition home or self-care (01) ==
PROVIDERS: Emergency Provider Emergency Medicine; Family Provider Internal Medicine; PCP Internal Medicine
DX: I49.3 Ventricular premature depolarization (principal); I25.10 Atherosclerotic heart disease of native coronary artery without angina pectoris; Z95.5 Presence of coronary angioplasty implant and graft; Z79.01 Long term (current) use of anticoagulants; I44.7 Left bundle-branch block, unspecified; E11.9 Type 2 diabetes mellitus without complications; I10 Essential (primary) hypertension; E78.00 Pure hypercholesterolemia, unspecified
CPT/HCPCS: 80048; 84484; 85025; 93005; 99284

== ENCOUNTER → 2018-05-14 15:25 | Outpatient (CLI) | payer MEDICARE, SELFPAY ==
[2017-12-23 11:21] VITALS: BMI 21.6
--- NOTE | 2018-05-14 14:00 | LES_PTH ---
PATIENT: DAVID GRAY LOC: [facility]#:[id number] AGE/SX: 89/F ROOM: RE05/14/[address]: Dr. Juan Saucedo MD : 1935 BED: DIS: SPEC #: [id number] RECD: 05/14/18 15:19 STATUS: BRIAN ISABEL #: [id number] MARIA ALEJANDRA: 05/14/18 14:[address]: Juan Saucedo DEPT: SURGICAL PATHOLOGY RECD BY: Adam Cha Tissues: Skin of face, NOS Procedures: Surgery Specimen Level IV HEADER OPERATION: Shave biopsy, right cheek lesion PRE-OP DIAGNOSIS: Right cheek, uncertain neoplasm TISSUE SUBMITTED: Right cheek tissue MICROSCOPIC DIAGNOSIS Skin lesion of right cheek, shave biopsy: Skin with actinic change and associated mild atypia. Hyperkeratosis and parakeratosis. AM:landry 05/18/18 COMMENT Excision of lesion is recommended for definitive classification. Clinical correlation is suggested. Case has been reviewed in consultation with Dr. Quick who concurs with the above diagnosis. IDC:SJ MICROSCOPIC DESCRIPTION Slides are reviewed. GROSS DESCRIPTION Received in fixative is one container labeled with the patient's name and designated right cheek shave biopsy. The specimen consists of a light cornelius shave biopsy of skin measuring 0.4 x 0.2 x <0.1 cm. The specimen is submitted in its entirety in one cassette. / AM:rg 05/17/18 TC:5 CPT: 32722
== END ==
PROVIDERS: Visit Provider Surgery
DX: R23.4 Changes in skin texture (principal)
CPT/HCPCS: 88305

== ENCOUNTER 2018-05-18 16:04 | Emergency (ER) | payer MEDICARE, SELFPAY ==
[2017-12-23 11:21] VITALS: BMI 21.6
[2018-05-18 16:05] VITALS: BP 212/91; PULSE 69; RESP 16; TEMP 37.1; O2SAT 97; BMI 22.0
[2018-05-18 16:31] VITALS: BP 218/78; PULSE 89; RESP 12; O2SAT 97
--- NOTE | 2018-05-18 16:37 | ED.DCSUM_ITS ---
- ER Visit Summary Date of Service: 05/18/18 Chief Complaint: Hypertension History of Present Illness: The patient is a 82 F with a history of hypertension. Patient had previously been on labetalol 100 mg twice daily. She was seen by Dr. Rangel in the office last week. Her blood pressure was high at that time and she was switched to carvedilol 6.25 mg twice a day. She took that medication for 3 days but she states her blood pressures were still in the 170s over 70s, so she stopped that medication on the fifth. She restarted her labetalol. Blood pressures in the morning approximately 2 hours after her first dose of labetalol have been well controlled. This morning she was 131/56. Blood pressure was rechecked around 2 PM this afternoon systolic blood pressure was over 200. Patient denies any headache, chest pain, palpitations, paresthesias. Physical Examination: Blood pressure in triage is 212/91, temperature 98.8, heart rate 69, respiratory rate 16, pulse ox 97% on room air. At the time of my examination her blood pressure is 218/78. Head and neck examination is unremarkable. Heart is regular rate and rhythm. Lung sounds are clear. Abdomen is soft and nontender. Neuro exam is normal. Test Results: EKG is sinus with a first-degree AV block. Left bundle branch block is noted. No sign of acute ischemia. Portable chest x-ray shows borderline cardiomegaly per my read. CBC is normal. Chemistry studies significant for sodium of 132. Emergency Department Course and Treatment: I spoke with Dr. Rangel, the patient' s enterprise resource analyst. He advised to have her stay on the labetalol, but double her lisinopril. She was given an extra dose of her lisinopril here today and will start the new dose tomorrow. Patient is to follow-up in Dr. Salas's office in 1 week for blood pressure check. Treatment Plan: [] Disposition: Discharge Impression: Hypertension This note was generated with [employer] dictation software. It may contain incorrect words, spelling, and punctuation that were not noted in review of the chart prior to signing ED Disposition - Plan for ED Patient: Chief Complaint: Hypertension Referrals: Mary Lindo MD [Primary Care Provider] -
--- NOTE | 2018-05-18 16:40 | RAD_ITS ---
STUDY: X-RAY CHEST REASON FOR EXAM: Female, 82 years old. History of cardiac stent. TECHNIQUE: AP portable. COMPARISON: December 16, 2017 FINDINGS: There is an indeterminant nodular opacity along the left cardiophrenic border. Normal size heart. Normal mediastinum and efren. Normal visualized pulmonary arteries. Normal visualized aortic arch and descending thoracic aorta. There are diffuse degenerative changes of the visualized thoracic spine. Normal visualized ribs, clavicles, and shoulders. There is no demonstrated abnormality of the visualized soft tissue structures of the upper abdomen. RAD/Chest 1 View (Portable) IMPRESSION: Indeterminate nodular density along the left cardiophrenic border, this may be secondary to a confluence of shadows or possible epicardial fat pad or cyst, consider PA and lateral radiographs for further characterization. Electronically Signed: Marcia Navarro MD at 18:02 EDT Tel , Service support ,
[2018-05-18 17:24] LABS: Absolute Lymphocyte Count 1.08 X10^3/ul (0.83-4.51); Basophil# 0.02 X10^3/uL; Basophil% 0.3 % (0-1); Eosinophil# 0.43 X10^3/uL; Eosinophils% 6.2 % (0-5); Hematocrit 36.9 % (37-47); Hemoglobin 12.2 g/dl (12.0-15.0); Lymphocyte # 1.08 X10^3/ul (4.0); Lymphocyte % 15.6 % (19-41); Mean Corp Hgb Conc 33.1 g/gl (32-36); Mean Corpuscular Hgb 31.2 pg (27.0-32.0); Mean Corpuscular Volume 94.4 fL (81-99); Monocyte# 0.35 X10^3/uL; Monocyte% 5.1 % (0-10); Neutrophil # 5.02 X10^3/uL (2.7-7.7); Neutrophil % 72.7 % (47-70); Platelet Count 248 K/mm3 (150-450); RBC Distribution Width CV 12.2 % (11.6-14.6); RBC Distribution Width SD 41.2 fl (35.1-43.9); Red Blood Count 3.91 M/mm3 (4.2-5.4); White Blood Count 6.9 K/mm3 (4.4-11.0)
[2018-05-18 17:26] LABS: POSITIVE COUNT NO; POSITIVE DIFFERENTIAL NO; POSITIVE MORPHOLOGY NO
[2018-05-18 17:27] LABS: Anion Gap 3 (5-15); BUN 18 mg/dL (7-18); BUN/Creat Ratio 20.7 RATIO (10-20); Calcium,Total 8.9 mg/dL (8.5-10.1); Chloride 98 mmol/L (98-107); Creatinine, Serum 0.87 mg/dL (0.55-1.02); EST Glomerular Filtration Rate 66 mL/min (>60); Est Glom Filt Rate - Afr Amer 80 mL/min (>60); Estimated Creatinine Clearance 41.24 ml/min; Glucose 100 mg/dL (74-106); Potassium 4.4 mmol/L (3.5-5.1); Sodium Level 132 mmol/L (136-145)
[2018-05-18] MEDS: Lisinopril 20 MG Tablet PO (17:30)
[2018-05-18 17:32] VITALS: BP 214/115; PULSE 67; RESP 18; O2SAT 97
--- NOTE | 2018-05-18 17:38 | ED.DEP ---
ED Disposition - Plan for ED Patient: Disposition: Home or Assisted Living Chief Complaint: Hypertension Instructions: ED HTN Established Referrals: David Rangel MD [STAFF PHYSICIAN] - 1 Week
[2018-05-18 17:40] VITALS: BP 221/92; PULSE 72; RESP 16; O2SAT 96
== END 2018-05-18 17:56 | disposition home or self-care (01) ==
PROVIDERS: Emergency Provider Emergency Medicine; Family Provider Internal Medicine; PCP Internal Medicine
DX: I10 Essential (primary) hypertension (principal); I44.7 Left bundle-branch block, unspecified; I44.0 Atrioventricular block, first degree; E11.9 Type 2 diabetes mellitus without complications; E78.00 Pure hypercholesterolemia, unspecified; Z95.5 Presence of coronary angioplasty implant and graft; Z87.891 Personal history of nicotine dependence
CPT/HCPCS: 71045; 80048; 85025; 93005; 99284; A4216

== ENCOUNTER 2018-07-15 08:34 | Inpatient (IN) | payer MEDICARE, SELFPAY ==
[2017-12-23 11:21] VITALS: BMI 21.6
[2018-07-15] VITALS (11 sets, daily range): BP systolic 68–163; BP diastolic 37–71; PULSE 50–108; RESP 11–16; TEMP 36.4–36.9; O2SAT 94–100; BMI 22.4; BMI 21.9; BMI 22.0
--- NOTE | 2018-07-15 08:46 | EKG12_ITS ---
Test Reason : SYNCOPE Blood Pressure : / mmHG Vent. Rate : 052 BPM Atrial Rate : 052 BPM P-R Int : 194 ms QRS Dur : 138 ms QT Int : 478 ms P-R-T Axes : 081 038 097 degrees QTc Int : 444 ms Sinus bradycardia Left bundle branch block Abnormal ECG Confirmed by GATITO WRIGHT, KUMAR ([id number]), city editor GEOVANNY SAWYER ([id number]) on 07/19/2018 2:24:17 PM Referred By: MILIND Confirmed By:KUMAR MEDEROS MD
--- NOTE | 2018-07-15 08:51 | RAD_ITS ---
STUDY: X-RAY CHEST REASON FOR EXAM: Female, 83 years old. Dizziness TECHNIQUE: Single AP portable view of the chest. COMPARISON: 3018 FINDINGS: The lungs are clear and expanded. There is no demonstrated pleural abnormality. Normal size heart. Normal mediastinum and efren. Normal visualized pulmonary arteries. Normal visualized aortic arch and descending thoracic aorta. There are diffuse degenerative changes of the visualized thoracic spine. There is degenerative osteoarthritis of the bilateral shoulders. There is no demonstrated abnormality of the visualized soft tissue structures of the upper abdomen. RAD/Chest 1 View (Portable) IMPRESSION: Degenerative changes, as described above. No demonstrated acute cardiopulmonary process. Electronically Signed: Graham Orozco MD at 9:14 EDT Tel , Service support ,
[2018-07-15] MEDS: 0.9% Normal Saline 1,000 ML 150 ML IV ×4 (08:54→23:39)
[2018-07-15 08:59] LABS: Absolute Lymphocyte Count 0.99 X10^3/ul (0.83-4.51); Absolute Neutrophil Count 3.6 X10^3/uL (2.0-7.7); Basophil# 0.02 X10^3/uL; Basophil% 0.4 % (0-1); Eosinophil# 0.32 X10^3/uL; Eosinophils% 6.4 % (0-5); Hematocrit 41.1 % (37-47); Hemoglobin 13.6 g/dl (12.0-15.0); Lymphocyte # 0.99 X10^3/ul (4.0); Lymphocyte % 19.7 % (19-41); Mean Corp Hgb Conc 33.1 g/gl (32-36); Mean Corpuscular Hgb 31.3 pg (27.0-32.0); Mean Corpuscular Volume 94.7 fL (81-99); Mean Platelet Vol. 9.1 fl (6.2-12.0); Monocyte# 0.13 X10^3/uL; Monocyte% 2.6 % (0-10); Neutrophil # 3.56 X10^3/uL (2.7-7.7); Neutrophil % 70.9 % (47-70); Platelet Count 257 K/mm3 (150-450); RBC Distribution Width CV 12.6 % (11.6-14.6); RBC Distribution Width SD 43.5 fl (35.1-43.9); Red Blood Count 4.34 M/mm3 (4.2-5.4)
[2018-07-15 09:01] LABS: POSITIVE COUNT NO; POSITIVE DIFFERENTIAL NO; POSITIVE MORPHOLOGY NO
[2018-07-15 09:13] LABS: ALB/GLOB Ratio 1.2 RATIO (0.9-2.4); AST(SGOT) 18 U/L (15-37); Alanine Aminotransfer ALT/SGPT 21 U/L (13-56); Albumin, Serum 3.6 g/dL (3.2-5.0); Alkaline Phosphatase 75 U/L (45-117); Anion Gap 7 (5-15); BUN 15 mg/dL (7-18); BUN/Creat Ratio 12.2 RATIO (10-20); Calcium,Total 9.2 mg/dL (8.5-10.1); Chloride 103 mmol/L (98-107); Creatinine, Serum 1.23 mg/dL (0.55-1.02); EST Glomerular Filtration Rate 44 mL/min (>60); Est Glom Filt Rate - Afr Amer 54 mL/min (>60); Estimated Creatinine Clearance 28.67 ml/min; Glucose 146 mg/dL (74-106); Potassium 4.3 mmol/L (3.5-5.1); Protein, Total 6.6 g/dL (6.4-8.2); Sodium Level 138 mmol/L (136-145)
[2018-07-15] MEDS: Ondansetron 4 MG/2 ML Vial IV (09:40)
[2018-07-15] MEDS: proMETHazine 25 MG/ML Syringe 12.5 MG IV (10:11)
--- NOTE | 2018-07-15 10:11 | ED.VISSUMM ---
- ER Visit Summary Date of Service: 07/15/18 Chief Complaint: [Syncope] History of Present Illness: The patient is a 83 F presents the emergency department with complaint of a syncopal episode this morning. Patient presents via EMS. Patient apparently had gone out to walk her dog when she developed some mild nausea. Patient states that she just was not feeling well and her stomach felt funny. Patient went home and felt hot and like she needed to have a bowel movement and had 2 loose stools. Patient then began vomiting x2. Patient felt lightheaded and woozy and has been noticed that she was about the past [place] so he help to lower her gently to the ground therefore there is no injury. Patient does not have any recollection of being lowered to the ground and felt that she may have passed out for a short time. Patient denies any chest pain or palpitations at that time. She denies recent illness or sick contacts. She has not had any fevers. [Patient did have a cardiac stent placed about 3 months ago.] Physical Examination: [HEENT-PERRLA, EOMI. Cranial nerves II through XII grossly intact. TMs clear. Mucous membranes moist. No adenopathy. Cardiovascular-regular rate and rhythm without murmur or ectopy Lungs-clear to auscultation, chest wall stable without crepitus or subcu emphysema Abdomen-normoactive bowel sounds, soft, nontender, no rebound or rigidity, no peritoneal signs. Extremities-intact ?4, normal range of motion, normal pulses, atraumatic] Test Results: [EKG obtained on arrival showed a sinus rhythm with a ventricular rate of 52 bpm with a left bundle branch block when compared with prior EKG the left bundle branch block is chronic. CBC with differential showed a white count of 5.0, hemoglobin 13.6, hematocrit 41, platelets 257. Chemistries unremarkable. BUN was 15 and creatinine 1.23. LFTs were normal. Troponin was less than 0.015. Chest x-ray obtained showed chronic degenerative changes.] Emergency Department Course and Treatment: [Patient did vomit in the emergency department and was medicated with Zofran initially she then developed further nausea and was given 12.5 mg of Phenergan IV. Patient had more watery stool in the emergency department. Orthostatic vital signs obtained were positive and her systolic blood pressure with standing dropped in the 60s. Patient was given a liter normal same fluid bolus.] Treatment Plan: [Admit] Disposition: [Admit] Impression: [Syncope Orthostatic hypotension Gastroenteritis] This note was generated with [employer] dictation software. It may contain incorrect words, spelling, and punctuation that were not noted in review of the chart prior to signing ED Disposition - Plan for ED Patient: Chief Complaint: Syncope Referrals: Mary Lindo MD [Primary Care Provider] -
--- NOTE | 2018-07-15 10:12 | HP.PCM_ITS ---
Problem List (1) Skin lesion Status: Acute (2) History of coronary artery stent placement Status: Chronic Comment: XOC-PHT-Nwde LAD 3.0 x 12 mm Promus Synergy 12/23/17 @ [facility] PTCA and CJ to mid LAD 11/14/2013 @ [facility] (3) Abnormal stress echocardiogram Status: Resolved (4) Left ventricular systolic dysfunction Status: Chronic Comment: EF 45% per stress echo 11/01/2013 (5) Nonrheumatic tricuspid valve regurgitation Status: Chronic Comment: mild per stress echo 11/01/13 (6) Nonrheumatic mitral valve regurgitation Status: Chronic Comment: mild per stress echo 11/01/13 (7) Pulmonary hypertension Status: Chronic Comment: RVSP 56 mmhg per stress echo 11/01/13 (8) Diabetes mellitus type II, controlled Status: Chronic (9) Hyperlipidemia Status: Chronic Qualifiers: Hyperlipidemia type: pure hypercholesterolemia Qualified Code(s): E78.00 - Pure hypercholesterolemia, unspecified; E78.0 - Pure hypercholesterolemia (10) Left bundle branch block Status: Chronic (11) Hypertension Status: Chronic Qualifiers: Hypertension type: essential hypertension Qualified Code(s): I10 - Essential (primary) hypertension (12) History of left heart catheterization Status: Chronic Comment: [facility], followed by PTCA and CJ to mid LAD 11/14/[address] Rendon @ [facility] (13) Atherosclerotic heart disease of [place] coronary artery without angina pectoris Status: Chronic Qualifiers: [place] vs. transplanted heart: [place] heart Qualified Code(s): I25.10 - Atherosclerotic heart disease of [place] coronary artery without angina pectoris Comment: Stent to LAD 12/2017 (14) Near syncope Status: Acute (15) Gastroenteritis Status: Acute History of Present Illness Date of Admission: 07/15/18 Chief Complaint: Nausea, vomiting and diarrhea and near syncope The patient is a 83 year old F who was brought to ER by EMS for near syncope symptoms after she had nausea, vomiting and diarrhea. Patient woke up fine and walked her dog. And she felt nauseated and stomach upset and went to bathroom where she had vomited and had loose bowel movement. After that she was dizzy lightheaded and does not remember. Her went to the bathroom to check as she was there for a long time. She was lethargic and perhaps syncope, although not clear. [] She was found positive orthostatic hypotension in the ER. Chest x-ray no acute change. EMS EKG sinus rhythm at 58 bpm with supraventricular complexes with left bundle branch block. Similar findings of sinus bradycardia at 52 bpm with left bundle branch block in ER Past Medical History Past Medical History (Chronic Problems): Chronic Problems (Last Reviewed 05/14/18 @ 13:45 by Zoey Wang) History of coronary artery stent placement (Chronic 12/23/17) [id number]-HQL-Txft LAD 3.0 x 12 mm Promus Synergy 12/23/17 @ [facility] PTCA and CJ to mid LAD 11/14/2013 @ [facility] Left ventricular systolic dysfunction (Chronic) EF 45% per stress echo 11/01/2013 Nonrheumatic tricuspid valve regurgitation (Chronic) mild per stress echo 11/01/13 Nonrheumatic mitral valve regurgitation (Chronic) mild per stress echo 11/01/13 Pulmonary hypertension (Chronic) RVSP 56 mmhg per stress echo 11/01/13 Diabetes mellitus type II, controlled (Chronic) Hyperlipidemia (Chronic) Left bundle branch block (Chronic) Hypertension (Chronic) History of left heart catheterization (Chronic) [facility], followed by PTCA and CJ to mid LAD 11/14/[address] Rendon @ [facility] Atherosclerotic heart disease of [place] coronary artery without angina pectoris (Chronic) Stent to LAD 12/2017 Medical History: Medical History (Last Reviewed 05/14/18 @ 13:45 by Zoey Wang) Left ventricular systolic dysfunction (Chronic) I51.9 EF 45% per stress echo 11/01/2013 Nonrheumatic tricuspid valve regurgitation (Chronic) I36.1 mild per stress echo 11/01/13 Nonrheumatic mitral valve regurgitation (Chronic) I34.0 mild per stress echo 11/01/13 Pulmonary hypertension (Chronic) I27.20 RVSP 56 mmhg per stress echo 11/01/13 Diabetes mellitus type II, controlled (Chronic) E11.9 Hyperlipidemia (Chronic) E78.5 Left bundle branch block (Chronic) I44.7 Hypertension (Chronic) I10 Atherosclerotic heart disease of [place] coronary artery without angina pectoris (Chronic) I25.10 Stent to LAD 12/2017 Allergies Penicillins Allergy (Unknown, Verified 07/15/18 08:38) Unknown Home Medications: Ambulatory Orders Medication Instructions Recorded ascorbate calcium 500 mg tablet 500 mg PO QDAY 10/30/17 aspirin 81 mg tablet,delayed 81 mg PO QDAY 10/30/17 release atorvastatin 80 mg tablet 80 mg PO QDAY 10/30/17 cholecalciferol (vitamin D3) 400 400 unit PO QDAY 10/30/17 unit capsule lisinopril 20 mg tablet 20 mg PO BID tab 04/16/18 Labetalol [Trandate (Beta Sommer)] 100 mg PO BID 05/18/18 amlodipine 10 mg tablet 10 mg PO QDAY 06/01/18 Clopidogrel Bisulfate [Clopidogrel] 75 mg PO QDAY 07/15/18 Hydrochlorothiazide 12.5 mg PO QDAY 07/15/18 Lisinopril [Zestril] 10 mg PO DAILY 07/15/18 Surgical History: Surgical History (Last Reviewed 05/14/18 @ 13:45 by Zoey Wang) History of coronary artery stent placement (Chronic) Onset Date: 12/23/17 Z95.5 ONS-HQP-Jnev LAD 3.0 x 12 mm Promus Synergy 12/23/17 @ [facility] PTCA and CJ to mid LAD 11/14/2013 @ [facility] History of left heart catheterization (Chronic) Z98.890 [facility], followed by PTCA and CJ to mid LAD 11/14/[address] Rendon @ [facility] History of heart artery stent Z95.5 Smoking Status: Never smoker - *Family History Paternal Family History: Family History (Last Reviewed 05/14/18 @ 13:45 by Zoey Wang) Mother Diabetes Hypertension Father Diabetes CVA (cerebral vascular accident) Daughter Diabetes Pulmonary hypertension Review of Systems Constitutional: Reports: Weakness, Fatigue. Denies: Chills, Fever, Weight Change HEENT: Denies: Head Aches, Sinus Congestion, Sinus Drainage Cardiovascular: Reports: Syncope. Denies: Chest Pain, Palpitations Respiratory: Denies: Cough, Shortness of breath at rest, Sputum production Gastrointestinal: Reports: Diarrhea, Nausea, Vomiting. Denies: Abdominal Pain Genitourinary: Denies: Dysuria Musculoskeletal: Denies: Joint Pain, Joint Tenderness Skin: Denies: Rash, Wounds Neurological: Denies: Numbness, Tingling, Focal weakness Psychiatric: Denies: Anxiety, Depression, Homicidal Ideations, Suicidal Ideations Hematologic/ Lymphatic: Denies: Easy Bruising, Easy Bleeding VTE Information - Inpt Only VTE Present on Admission: No VTE Mechan Device Prophylaxis: SCD's Reason prophylaxis not ordered:: Medical Contraindication - Blood in stool Patient Problems: Active and Suspected Problems (Last Reviewed 05/14/18 @ 13:45 by Zoey Wang) Near syncope (Acute) Gastroenteritis (Acute) - Physical Exam General: Alert, Oriented x3, Cooperative, Lethargic HEENT: Atraumatic, PERRLA, EOMI, Normocephalic Oral: Dry Mucosa Neck: Supple, No JVD, Negative Carotid Bruits Lungs: Clear to auscultation, Normal air movement, No rhonchi, No wheeze, No rales Cardiovascular: Regular rate, Regular Rhythm, Normal S1, Normal S2, No murmurs Abdomen: Bowel Sounds Present, Soft, Non Tender, Non-Distended Extremities: No edema, Capillary Refill Less than 3 Seconds Skin: No rashes, No breakdown Musculoskeletal: No Tenderness to Palpation of Joints or Extremities Neurological: Cranial nerves II-XII grossly intact Psych/Mental Status: Normal Affect, Appropriate Vital Signs Temp Pulse Resp BP Pulse Ox 97.6 F L 50 L 11 L 128/51 H 100 07/15/18 08:36 07/15/18 09:20 07/15/18 08:36 07/15/18 09:20 07/15/18 08:36 Oxygen Delivery Method Room Air Weight: 126 lb 15.78 oz Body Mass Index (BMI) 22.4 Laboratory Tests Past 24 Hrs 07/15/18 07/15/18 08:35 08:35 WBC 5.0 RBC 4.34 Hgb 13.6 Hct 41.1 MCV 94.7 MCH 31.3 MCHC 33.1 RDW 12.6 RDW Differential 43.5 Plt Count 257 MPV 9.1 Immature Gran % (Auto) 0.000 Neut % (Auto) 70.9 H Lymph % (Auto) 19.7 Banks % (Auto) 2.6 Eos % (Auto) 6.4 H Baso % (Auto) 0.4 Absolute Neuts (auto) 3.6 Absolute Lymphs (auto) 0.99 Total Counted Not Reportable Sodium 138 Potassium 4.3 Chloride 103 Carbon Dioxide 28.0 Anion Gap 7 BUN 15 Creatinine 1.23 H Estim Creat Clear Calc 28.67 Est GFR (MDRD) Af Amer 54 L Est GFR (MDRD) Non-Af 44 L BUN/Creatinine Ratio 12.2 Glucose 146 H Calcium 9.2 Total Bilirubin 0.70 AST 18 ALT 21 Alkaline Phosphatase 75 Troponin I < 0.015 Total Protein 6.6 Albumin 3.6 Globulin 3.0 Albumin/Globulin Ratio 1.2 Assessment/Plan All Active Problems (Last Reviewed 05/14/18 @ 13:45 by Zoey Wang) Near syncope (Acute) Gastroenteritis (Acute) Skin lesion (Acute) Abnormal stress echocardiogram (Resolved) The patient is a 83 year old F who was brought to ER by EMS for near syncope symptoms after she had nausea, vomiting and diarrhea. Patient woke up fine and walked her dog. And she felt nauseated and stomach upset and went to bathroom where she had vomited and had loose bowel movement. After that she was dizzy lightheaded and does not remember. Her went to the bathroom to check as she was there for a long time. She was lethargic and perhaps syncope, although not clear. [] She was found positive orthostatic hypotension in the ER. Chest x-ray no acute change. EMS EKG sinus rhythm at 58 bpm with supraventricular complexes with left bundle branch block. Similar findings of sinus bradycardia at 52 bpm with left bundle branch block in ER On the floor, as per the nursing staff she had some blood in the stool. 1. Near syncope with possible syncope, from orthostatic hypotension: Patient is being admitted in PCU. On IV fluid normal saline to correct dehydration. Measure orthostatic blood pressure tomorrow a.m. Serial cardiac enzymes. Patient has single-vessel coronary artery disease for which she had a stent in proximal LAD December 29. Prior to that she had positive stress echo with EF 55% and mildly hypokinetic mid anterior and lateral aspects. She follows Dr. Rangel. 2. Orthostatic hypotension: In ED, blood pressure dropped from 128/51, heart rate in supine position to 76-68/37, heart rate 47 on standing. Hold antihypertensive medications. 3. Possible viral gastroenteritis, possible GI bleed: Stool for occult blood, UA to look for hematuria. If positive, will need further workup. Currently her hemoglobin is 10.2/33.3. Previous hemoglobin 10.9 in May 2018. H&H in evening. 4. Diabetes mellitus type 2, controlled: Blood sugar is 146. Accu-Chek before meals and at bedtime and cover with NovoLog sliding scale. Other chronic comorbidities include dyslipidemia, chronic left bundle branch block, hypertension and coronary artery status post stent as mentioned above: Home medication reconciliation done. DVT prophylaxis: Bilateral SCDs. Hold pharmacological prophylaxis until issues of GI bleed is resolved Code Visit OBSV E&M: 45262 Initial observation care L3
[2018-07-15 11:49] LABS: Magnesium 2.4 mg/dL (1.6-2.6)
[2018-07-15 12:50] LABS: Cholesterol 145 mg/dL (200); High Density Lipoprotein 58 mg/dL; Triglycerides 69 mg/dL; Very Low Density Lipoprotein 14 mg/dL (5-40)
[2018-07-15 16:40] LABS: Bedside Glucose 155 mg/dL (70-110)
[2018-07-15] MEDS: Atorvastatin Calcium 80 MG Tablet PO (20:36)
[2018-07-15] MEDS: Labetalol 100 MG Tablet PO (20:37)
[2018-07-15 20:46] LABS: Bedside Glucose 170 mg/dL (70-110)
[2018-07-15 21:13] LABS: Hematocrit 38.8 % (37-47); Hemoglobin 12.8 g/dl (12.0-15.0)
[2018-07-15 23:04] LABS: Mucous, Urine 0 SEEN /hpf (<or=2+)
[2018-07-15 23:08] LABS: Color, Urine Yellow (Yellow); Glucose, Dipstick 50 mg/dl (Normal); Ketone-Dipstick 50 mg/dl (Negative); Leukocyte Esterase-Dipstick 25 /ul (Negative); Nitrite-Dipstick Negative (Negative); Occult Blood-Urine 150 /ul (Negative); Protein-Dipstick 30 mg/dl (Negative); Urine Bilirubin Dipstick Negative (Negative); Urine Clarity Clear (Clear); Urine Urobilinogen Normal (Normal)
[2018-07-15 23:20] LABS: Bacteria RARE /hpf (None Seen); Red Blood Cells-Urine 0-5 SEEN /hpf (0-5); Squamous Epithelial Cells - UA 0-5 SEEN /hpf (5-10); White Blood Cells 0-5 SEEN /hpf (0-5)
[2018-07-16] VITALS (17 sets, daily range): BP systolic 128–169; BP diastolic 49–71; PULSE 73–93; RESP 14–20; TEMP 36.6–37.7; O2SAT 93–99; BMI 21.9
--- NOTE | 2018-07-16 | IMM_PTH ---
PATIENT: DAVID GRAY LOC: [facility] U#:[id number] AGE/SX: 83/F ROOM: [facility] RE07/15/[address]: Dr. Rex Carvajal MD : 1935 BED: 1 DIS: 07/19/2018 SPEC #: [id number] RECD: 07/19/18 15:25 STATUS: BRIAN REQ #: [id number] MARIA ALEJANDRA: 07/16/18 00:[address]: Juan Saucedo DEPT: IMMUNOHISTOCHEMISTRY RECD BY: Alisha Stephens ENTERED: 07/19/18 15:25 SP TYPE: IMMUNO OTHR DR: MD Dr. Rex Worley MD Dr. Prakash Chand, MD Tissues: A - Stomach, NOS Procedures: H Pylori (initial) PHYSICIAN & INSTITUTION [place] [address] SPECIMEN INFORMATION: Tissue Source: A - Antrum biopsy Clinical Info: GI bleed, gastroenteritis Specimen Number: [id number] CPT code: 11662 METHODOLOGY: Deparaffinized sections of prefer/formalin-fixed tissue or PAP/DQ stained slides are incubated with monoclonal/polyclonal antibodies/oligonucleotide probes. Localization is made via biotin free immunoperoxidase method. Appropriate controls are performed and reacted as expected. Results on target cell population are indicated in the following table: RESULTS: ANTIBODY / CLONE RESULT Block A H Pylori (polyclonal) positive These tests were developed and their performance characteristics determined by [facility]. They may not have been cleared or approved by the U.S. Food and Drug Administration. The FDA has determined that such clearance or approval is not necessary. INTERPRETATION: A. Antrum, biopsy: Positive for Helicobacter pylori organisms. AM:landry 07/20/18
[2018-07-16] MEDS: 0.9% Normal Saline 1,000 ML 150 ML IV ×2 (05:30→11:24)
[2018-07-16 05:53] LABS: Absolute Lymphocyte Count 0.86 X10^3/ul (0.83-4.51); Absolute Neutrophil Count 14.8 X10^3/uL (2.0-7.7); Basophil# 0.01 X10^3/uL; Basophil% 0.1 % (0-1); Hematocrit 34.3 % (37-47); Hemoglobin 11.7 g/dl (12.0-15.0); Lymphocyte # 0.86 X10^3/ul (4.0); Lymphocyte % 5.3 % (19-41); Mean Corp Hgb Conc 34.1 g/gl (32-36); Mean Corpuscular Hgb 32.4 pg (27.0-32.0); Mean Platelet Vol. 9.1 fl (6.2-12.0); Monocyte# 0.68 X10^3/uL; Monocyte% 4.2 % (0-10); Neutrophil # 14.77 X10^3/uL (2.7-7.7); Neutrophil % 90.2 % (47-70); POSITIVE COUNT NO; POSITIVE DIFFERENTIAL NO; POSITIVE MORPHOLOGY NO; Platelet Count 235 K/mm3 (150-450); RBC Distribution Width CV 12.7 % (11.6-14.6); RBC Distribution Width SD 42.8 fl (35.1-43.9); Red Blood Count 3.61 M/mm3 (4.2-5.4); White Blood Count 16.4 K/mm3 (4.4-11.0)
[2018-07-16 06:29] LABS: Anion Gap 8 (5-15); BUN 12 mg/dL (7-18); BUN/Creat Ratio 15.1 RATIO (10-20); Chloride 108 mmol/L (98-107); EST Glomerular Filtration Rate 73 mL/min (>60); Est Glom Filt Rate - Afr Amer 89 mL/min (>60); Estimated Creatinine Clearance 44.08 ml/min; Glucose 136 mg/dL (74-106); Potassium 3.8 mmol/L (3.5-5.1); Sodium Level 141 mmol/L (136-145); Thyroid Stim Hormone (TSH) 0.96 uIU/mL (0.358-3.74)
[2018-07-16 06:56] LABS: Bedside Glucose 140 mg/dL (70-110)
[2018-07-16] MEDS: amLODIPine 10 MG Tablet PO (09:20)
[2018-07-16] MEDS: Lisinopril 10 MG Tablet PO (09:20)
[2018-07-16] MEDS: Labetalol 100 MG Tablet PO ×2 (09:20→21:47)
[2018-07-16 11:30] LABS: Bedside Glucose 127 mg/dL (70-110)
--- NOTE | 2018-07-16 11:33 | PCM.PN.HOSP ---
Patient Problems: Active and Suspected Problems (Last Reviewed 05/14/18 @ 13:45 by Zoey Wang) Near syncope (Acute) Gastroenteritis (Acute) Subjective: Patient dizziness, lightheadedness has resolved. Patient had 3 bowel movements yesterday and was dark red in color, small in amount. Today in the morning she had one which also dark red small in amount. Slight drop in hemoglobin/hematocrit from 13.6/41 to 11.7/34.3 Blood pressure is good. Heart rate is 70s. cardiac monitor technician shows sinus rhythm with sinus arrhythmia Vitals/I&O's: Vital Signs Temp Pulse Resp BP Pulse Ox 98.1 F 73 16 169/49 H 98 07/16/18 09:15 07/16/18 11:00 07/16/18 09:15 07/16/18 09:15 07/16/18 09:15 Oxygen Delivery Method Room Air Weight: 123 lb 15.984 oz Body Mass Index (BMI) 21.9 Orthostatic Vital Signs Start: 07/16/18 05:32 Freq: q24h Status: Active Protocol: Activity Type Activity Date Activity User E-Sign Co-Sign Detail Recorded Client Recorded Date Recorded By Document 07/16/18 05:32 AR [id number] 07/16/18 05:37 AR 07/16/18 05:32 Orthostatic Vitals Standing -Blood Pressure (90/60-120/80) 149/58 H -Extremity Use Left Arm -Pulse Rate (60-100) 87 Sitting -Blood Pressure (90/60-120/80) 151/62 H -Extremity Use Left Arm -Pulse Rate (60-100) 82 Lying -Blood Pressure (90/60-120/80) 154/55 H -Extremity Use Left Arm -Pulse Rate (60-100) 82 Intake and Output for Last 24 Hours 07/14/18 07/15/18 07/16/18 23:59 23:59 23:59 Intake Total 2062 875 / 875 Balance 2062 875 / 875 General: Alert, Oriented x3, Cooperative HEENT: Atraumatic, PERRLA, EOMI, Normocephalic Neck: Supple, No JVD, Negative Carotid Bruits Lungs: Clear to auscultation, Normal air movement, No rhonchi, No wheeze, No rales Cardiovascular: Regular rate, Regular Rhythm, Normal S1, Normal S2, No murmurs, - - Sinus arrhythmia Abdomen: Bowel Sounds Present, Soft, Non Tender, Non-Distended Extremities: No edema, Capillary Refill Less than 3 Seconds Skin: No rashes, No breakdown Musculoskeletal: No Tenderness to Palpation of Joints or Extremities, Arthritic Changes, Muscle Wasting Neurological: Cranial nerves II-XII grossly intact Psych/Mental Status: Normal Affect, Appropriate Microbiology Past 72 Hours 07/15/18 11:40 Stool Stool Lactoferrin - Final Laboratory Results 07/15/18 08:35: Magnesium 2.4 07/15/18 12:05: Troponin I < 0.015, Triglycerides 69, Cholesterol 145, LDL Cholesterol 73, VLDL Cholesterol 14, HDL Cholesterol 58 07/15/18 14:30: Troponin I < 0.015 07/15/18 16:33: POC Glucose 155 H 07/15/18 20:36: POC Glucose 170 H 07/15/18 20:49: Hgb 12.8, Hct 38.8 07/15/18 22:57: Urine Color Yellow, Urine Clarity Clear, Urine pH 5.0, Ur Specific Sun 1.020, Urine Protein 30 H, Urine Glucose (UA) 50 H, Urine Ketones 50 H, Urine Occult Blood 150 H, Urine Nitrite Negative, Urine Bilirubin Negative, Urine Urobilinogen Normal, Ur Leukocyte Esterase 25 H, Urine RBC 0-5 SEEN, Urine WBC 0-5 SEEN, Ur Squamous Epith Cells 0-5 SEEN, Urine Bacteria RARE, Urine Mucus 0 SEEN 07/16/18 05:25: Sodium 141, Potassium 3.8, Chloride 108 H, Carbon Dioxide 25.0, Anion Gap 8, BUN 12, Creatinine 0.80, Estim Creat Clear Calc 44.08, Est GFR (MDRD) Af Amer 89, Est GFR (MDRD) Non-Af 73, BUN/Creatinine Ratio 15.1, Glucose 136 H, Calcium 8.0 L, TSH 0.96 07/16/18 05:25: WBC 16.4 H, RBC 3.61 L, Hgb 11.7 L, Hct 34.3 L, MCV 95.0, MCH 32.4 H, MCHC 34.1, RDW 12.7, RDW Differential 42.8, Plt Count 235, MPV 9.1, Immature Gran % (Auto) 0.200, Neut % (Auto) 90.2 H, Lymph % (Auto) 5.3 L, Yates % (Auto) 4.2, Eos % (Auto) 0.0, Baso % (Auto) 0.1, Absolute Neuts (auto) 14.8 H, Absolute Lymphs (auto) 0.86, Total Counted Not Reportable 07/16/18 06:51: POC Glucose 140 H 07/16/18 11:23: POC Glucose 127 H Current Medications Acetaminophen (Tylenol) 650 mg PO Q6H PRN PRN PRN Reason: Mild Pain (scale 0-3)/T>100.7 Al Hydroxide/Mg Hydroxide (Mylanta Ii) 30 ml PO Q6H PRN PRN PRN Reason: Gastric burning Amlodipine Besylate (Norvasc) 10 mg PO DAILY [facility] Last Admin: 07/16/18 09:20 Dose: 10 mg Atorvastatin Calcium (Lipitor) 80 mg PO QHS [facility] Last Admin: 07/15/18 20:36 Dose: 80 mg Dextrose (D50w Syringe) 0 gm IV X1 PRN; Protocol PRN Reason: Hypoglycemia Glucagon () 1 mg IM .X1 PRN PRN Reason: Hypoglycemia Pantoprazole Sodium 40 mg/ (Sodium Chloride) 110 mls @ 330 mls/hr IV Q12 KASI Sodium Chloride () 1,000 mls @ 50 mls/hr IV .Q20H [facility] Insulin Human Lispro (Humalog Kwikpen (Bkc)) 0 unit SQ ACHS [facility]; Protocol Last Admin: 07/16/18 11:24 Dose: Not Given Labetalol HCl (Trandate) 100 mg PO BID [facility] Last Admin: 07/16/18 09:20 Dose: 100 mg Lisinopril (Zestril) 10 mg PO DAILY [facility] Last Admin: 07/16/18 09:20 Dose: 10 mg Morphine Sulfate () 1 - 2 mg IV Q4H PRN PRN PRN Reason: SEVERE PAIN (6-07/21) Nutritional Formula (Lactose Free) (Ensure Enlive) 120 ml PO 4X/DAY [facility] Last Admin: 07/16/18 09:26 Dose: Not Given Ondansetron HCl (Zofran) 4 mg IV Q8H PRN PRN PRN Reason: NAUSEA Oxycodone HCl (Oxyir) 5 mg PO Q4H PRN PRN PRN Reason: Moderate Pain (pain scale 4-5) Promethazine HCl (Phenergan) 12.5 mg IV Q6H PRN PRN PRN Reason: NAUSEA/VOMITING Sodium Chloride () 5 - 30 ml IV UD PRN PRN Reason: SALINE FLUSH Zolpidem Tartrate (Ambien (Generic)) 5 mg PO QHS PRN PRN PRN Reason: INSOMNIA Medical Necessity - Tobacco Use Smoking Status: Never smoker Assessment/Plan All Active Problems (Last Reviewed 05/14/18 @ 13:45 by Zoey Wang) Near syncope (Acute) Gastroenteritis (Acute) Skin lesion (Acute) Abnormal stress echocardiogram (Resolved) The patient is a 83 year old F who was brought to ER by EMS for near syncope symptoms after she had nausea, vomiting and diarrhea. Patient woke up fine and walked her dog. And she felt nauseated and stomach upset and went to bathroom where she had vomited and had loose bowel movement. After that she was dizzy lightheaded and does not remember. Her went to the bathroom to check as she was there for a long time. She was lethargic and perhaps syncope, although not clear. [] She was found positive orthostatic hypotension in the ER. Chest x-ray no acute change. EMS EKG sinus rhythm at 58 bpm with supraventricular complexes with left bundle branch block. Similar findings of sinus bradycardia at 52 bpm with left bundle branch block in ER On the floor, as per the nursing staff she had some blood in the stool. 1. Near syncope with from orthostatic hypotension, probably from GI blood loss or colitis: Patient is being admitted in PCU. Patient was given IV fluid initially to correct dehydration and she is well hydrated now. Repeat orthostatic blood pressure does not show drop and is negative today. Serial troponins are negative. Patient has single-vessel coronary artery disease for which she had a stent in proximal LAD December 2017. Prior to that she had positive stress echo with EF 55% and mildly hypokinetic mid anterior and lateral aspects. She follows Dr. Rangel. 2. Acute anemia, blood loss anemia from lower GI bleed, from antiplatelet agents: Orthostatic hypotension was present in ER but now resolved after IV fluid rehydration. In ED, blood pressure dropped from 128/51, heart rate in supine position to 76-68/37, heart rate 47 on standing. Watch her vitals. H&H every [address] Saucedo and requested to see her and he agreed. We will keep the patient on clear liquid. IV Protonix 40 mg twice daily Hold aspirin and Plavix for now. She had 6 months after stent in LAD in December 2017. 3. Possible viral gastroenteritis, or colitis. Stool for leukocytes positive. Stool Bacteroides panel ordered. Previous hemoglobin 10.9 in May 2018. H&H monitoring. 4. Diabetes mellitus type 2, controlled: Blood sugar is 146. Accu-Chek before meals and at bedtime and cover with NovoLog sliding scale. Other chronic comorbidities include dyslipidemia, chronic left bundle branch block, hypertension and coronary artery status post stent as mentioned above: Home medication reconciliation done. DVT prophylaxis: Bilateral SCDs. Hold pharmacological prophylaxis until issues of GI bleed is resolved Code Visit Inpatient E&M: [id number] [facility] Hosp L3
--- NOTE | 2018-07-16 11:41 | PN_ITS ---
Patient Problems: Active and Suspected Problems (Last Reviewed 05/14/18 @ 13:45 by Zoey Wang) Near syncope (Acute) Gastroenteritis (Acute) Subjective: Patient dizziness, lightheadedness has resolved. Patient had 3 bowel movements yesterday and was dark red in color, small in amount. Today in the morning she had one which also dark red small in amount. Slight drop in hemoglobin/hematocrit from 13.6/41 to 11.7/34.3 Blood pressure is good. Heart rate is 70s. sales record clerk shows sinus rhythm with sinus arrhythmia Vitals/I&O's: Vital Signs Temp Pulse Resp BP Pulse Ox 98.1 F 73 16 169/49 H 98 07/16/18 09:15 07/16/18 11:00 07/16/18 09:15 07/16/18 09:15 07/16/18 09:15 Oxygen Delivery Method Room Air Weight: 123 lb 15.984 oz Body Mass Index (BMI) 21.9 Orthostatic Vital Signs Start: 07/16/18 05:32 Freq: q24h Status: Active Protocol: Activity Type Activity Date Activity User E-Sign Co-Sign Detail Recorded Client Recorded Date Recorded By Document 07/16/18 05:32 AR [id number] 07/16/18 05:37 AR 07/16/18 05:32 Orthostatic Vitals Standing -Blood Pressure (90/60-120/80) 149/58 H -Extremity Use Left Arm -Pulse Rate (60-100) 87 Sitting -Blood Pressure (90/60-120/80) 151/62 H -Extremity Use Left Arm -Pulse Rate (60-100) 82 Lying -Blood Pressure (90/60-120/80) 154/55 H -Extremity Use Left Arm -Pulse Rate (60-100) 82 Intake and Output for Last 24 Hours 07/14/18 07/15/18 07/16/18 23:59 23:59 23:59 Intake Total 2062 875 / 875 Balance 2062 875 / 875 General: Alert, Oriented x3, Cooperative HEENT: Atraumatic, PERRLA, EOMI, Normocephalic Neck: Supple, No JVD, Negative Carotid Bruits Lungs: Clear to auscultation, Normal air movement, No rhonchi, No wheeze, No rales Cardiovascular: Regular rate, Regular Rhythm, Normal S1, Normal S2, No murmurs, - - Sinus arrhythmia Abdomen: Bowel Sounds Present, Soft, Non Tender, Non-Distended Extremities: No edema, Capillary Refill Less than 3 Seconds Skin: No rashes, No breakdown Musculoskeletal: No Tenderness to Palpation of Joints or Extremities, Arthritic Changes, Muscle Wasting Neurological: Cranial nerves II-XII grossly intact Psych/Mental Status: Normal Affect, Appropriate Microbiology Past 72 Hours 07/15/18 11:40 Stool Stool Lactoferrin - Final Laboratory Results 07/15/18 08:35: Magnesium 2.4 07/15/18 12:05: Troponin I < 0.015, Triglycerides 69, Cholesterol 145, LDL Cholesterol 73, VLDL Cholesterol 14, HDL Cholesterol 58 07/15/18 14:30: Troponin I < 0.015 07/15/18 16:33: POC Glucose 155 H 07/15/18 20:36: POC Glucose 170 H 07/15/18 20:49: Hgb 12.8, Hct 38.8 07/15/18 22:57: Urine Color Yellow, Urine Clarity Clear, Urine pH 5.0, Ur Specific [place] 1.020, Urine Protein 30 H, Urine Glucose (UA) 50 H, Urine Ketones 50 H, Urine Occult Blood 150 H, Urine Nitrite Negative, Urine Bilirubin Negative, Urine Urobilinogen Normal, Ur Leukocyte Esterase 25 H, Urine RBC 0-5 SEEN, Urine WBC 0-5 SEEN, Ur Squamous Epith Cells 0-5 SEEN, Urine Bacteria RARE, Urine Mucus 0 SEEN 07/16/18 05:25: Sodium 141, Potassium 3.8, Chloride 108 H, Carbon Dioxide 25.0, Anion Gap 8, BUN 12, Creatinine 0.80, Estim Creat Clear Calc 44.08, Est GFR (MDRD) Af Amer 89, Est GFR (MDRD) Non-Af 73, BUN/Creatinine Ratio 15.1, Glucose 136 H, Calcium 8.0 L, TSH 0.96 07/16/18 05:25: WBC 16.4 H, RBC 3.61 L, Hgb 11.7 L, Hct 34.3 L, MCV 95.0, MCH 32.4 H, MCHC 34.1, RDW 12.7, RDW Differential 42.8, Plt Count 235, MPV 9.1, Immature Gran % (Auto) 0.200, Neut % (Auto) 90.2 H, Lymph % (Auto) 5.3 L, [place]ancock % (Auto) 4.2, Eos % (Auto) 0.0, Baso % (Auto) 0.1, Absolute Neuts (auto) 14.8 H, Absolute Lymphs (auto) 0.86, Total Counted Not Reportable 07/16/18 06:51: POC Glucose 140 H 07/16/18 11:23: POC Glucose 127 H Current Medications Acetaminophen (Tylenol) 650 mg PO Q6H PRN PRN PRN Reason: Mild Pain (scale 0-3)/T>100.7 Al Hydroxide/Mg Hydroxide (Mylanta Ii) 30 ml PO Q6H PRN PRN PRN Reason: Gastric burning Amlodipine Besylate (Norvasc) 10 mg PO DAILY [facility] Last Admin: 07/16/18 09:20 Dose: 10 mg Atorvastatin Calcium (Lipitor) 80 mg PO QHS [facility] Last Admin: 07/15/18 20:36 Dose: 80 mg Dextrose (D50w Syringe) 0 gm IV X1 PRN; Protocol PRN Reason: Hypoglycemia Glucagon () 1 mg IM .X1 PRN PRN Reason: Hypoglycemia Pantoprazole Sodium 40 mg/ (Sodium Chloride) 110 mls @ 330 mls/hr IV Q12 KASI Sodium Chloride () 1,000 mls @ 50 mls/hr IV .Q20H [facility] Insulin Human Lispro (Humalog Kwikpen (Bkc)) 0 unit SQ ACHS [facility]; Protocol Last Admin: 07/16/18 11:24 Dose: Not Given Labetalol HCl (Trandate) 100 mg PO BID [facility] Last Admin: 07/16/18 09:20 Dose: 100 mg Lisinopril (Zestril) 10 mg PO DAILY [facility] Last Admin: 07/16/18 09:20 Dose: 10 mg Morphine Sulfate () 1 - 2 mg IV Q4H PRN PRN PRN Reason: SEVERE PAIN (6-07/21) Nutritional Formula (Lactose Free) (Ensure Enlive) 120 ml PO 4X/DAY [facility] Last Admin: 07/16/18 09:26 Dose: Not Given Ondansetron HCl (Zofran) 4 mg IV Q8H PRN PRN PRN Reason: NAUSEA Oxycodone HCl (Oxyir) 5 mg PO Q4H PRN PRN PRN Reason: Moderate Pain (pain scale 4-5) Promethazine HCl (Phenergan) 12.5 mg IV Q6H PRN PRN PRN Reason: NAUSEA/VOMITING Sodium Chloride () 5 - 30 ml IV UD PRN PRN Reason: SALINE FLUSH Zolpidem Tartrate (Ambien (Generic)) 5 mg PO QHS PRN PRN PRN Reason: INSOMNIA Medical Necessity - Tobacco Use Smoking Status: Never smoker Assessment/Plan All Active Problems (Last Reviewed 05/14/18 @ 13:45 by Zoey Wang) Near syncope (Acute) Gastroenteritis (Acute) Skin lesion (Acute) Abnormal stress echocardiogram (Resolved) The patient is a 83 year old F who was brought to ER by EMS for near syncope symptoms after she had nausea, vomiting and diarrhea. Patient woke up fine and walked her dog. And she felt nauseated and stomach upset and went to bathroom where she had vomited and had loose bowel movement. After that she was dizzy lightheaded and does not remember. Her went to the bathroom to check as she was there for a long time. She was lethargic and perhaps syncope, although not clear. [] She was found positive orthostatic hypotension in the ER. Chest x-ray no acute change. EMS EKG sinus rhythm at 58 bpm with supraventricular complexes with left bundle branch block. Similar findings of sinus bradycardia at 52 bpm with left bundle branch block in ER On the floor, as per the nursing staff she had some blood in the stool. 1. Near syncope with from orthostatic hypotension, probably from GI blood loss or colitis: Patient is being admitted in PCU. Patient was given IV fluid initially to correct dehydration and she is well hydrated now. Repeat orthostatic blood pressure does not show drop and is negative today. Serial troponins are negative. Patient has single-vessel coronary artery disease for which she had a stent in proximal LAD December 2017. Prior to that she had positive stress echo with EF 55% and mildly hypokinetic mid anterior and lateral aspects. She follows Dr. Rangel. 2. Acute anemia, blood loss anemia from lower GI bleed, from antiplatelet agents: Orthostatic hypotension was present in ER but now resolved after IV fluid rehydration. In ED, blood pressure dropped from 128/51, heart rate in supine position to 76-68/37, heart rate 47 on standing. Watch her vitals. H&H every [address] Saucedo and requested to see her and he agreed. We will keep the patient on clear liquid. IV Protonix 40 mg twice daily Hold aspirin and Plavix for now. She had 6 months after stent in LAD in December 2017. 3. Possible viral gastroenteritis, or colitis. Stool for leukocytes positive. Stool Bacteroides panel ordered. Previous hemoglobin 10.9 in May 2018. H&H monitoring. 4. Diabetes mellitus type 2, controlled: Blood sugar is 146. Accu-Chek before meals and at bedtime and cover with NovoLog sliding scale. Other chronic comorbidities include dyslipidemia, chronic left bundle branch block, hypertension and coronary artery status post stent as mentioned above: Home medication reconciliation done. DVT prophylaxis: Bilateral SCDs. Hold pharmacological prophylaxis until issues of GI bleed is resolved Code Visit Inpatient E&M: [id number] [facility] Hosp L3
[2018-07-16] MEDS: Electrolyte Solution/Peg's 4000 ML PO (13:00)
--- NOTE | 2018-07-16 13:25 | CASEMGMT ---
RN CM Assessment. PCP: [facility]: [facility] Se[facility] Living arrangements: Lives independently with . One story, few steps into home. DME: none Transportation: drives Intro role of CM to patient in room. Pt states she is independent, no needs identified. DC PLAN: home on dc.
[2018-07-16 14:37] LABS: Hematocrit 34.5 % (37-47); Hemoglobin 11.4 g/dl (12.0-15.0)
--- NOTE | 2018-07-16 15:58 | PCM.CONS.GEN ---
Problem List (1) Rectal bleeding Status: Acute Reason for Consult Date of Consultation: 07/16/18 History of Present Illness: The patient is a 83 year old F who was admitted to the was from the hospital yesterday with syncope and suspected rectal bleeding. I was consulted today because of drop in hemoglobin and ongoing problems with diarrhea and blood per rectum. Referring physician is and a electronic copy of my surgical report will be returned to him. The patient noted being on the commode at home and having syncope or near syncopal episode. She presented with diarrhea. C. difficile is still pending today. Other pathology not remarkable. On her presentation yesterday her white blood cell count was 5000 with a hemoglobin 13.6 hematocrit 41.1 and a platelet count of 257,000. Today her white blood cell count was 16.4 with a hemoglobin 11.7 and hematocrit 34.3 and a platelet count of 235,000 repeat hemoglobin at 220 was 11.4 with a hematocrit of 34.5. On her presentation her BUN is 15 creatinine 1.27 and then today BUN is 12 and creatinine 0.8. It is of note that she has had 2 coronary stents placed. She is on clopidogrel and aspirin. She denies previous history of stomach ulcer. She actually did not discussed that she previously had a problem but on December 30, 2010 Dr. Ivan Dasilva gastrology could not perform an upper endoscopy because of suspected hypertrophy of the cricopharyngeus muscle and inability to pass the upper scope. The patient says she had a previous colonoscopy 5 years ago but I cannot find records except those dating back to his longest 2002. At that point she did have colon polyps identified. She denies any previous history of rectal bleeding. She denies any current abdominal pain. She states she is never had any bouts of diverticulitis. Stool for lactoferrin is positive. Enteric bacteria not identified. C. difficile still pending Request has been made for an urgent colonoscopy. Unfortunately water supply for the endoscopy room tomorrow is curtailed. After discussion with anesthesia and endoscopy nurses was elected to push the patient through an urgent bowel prep this afternoon and perform endoscopy this evening Past Medical History Past Medical History (Chronic Problems): Chronic Problems (Last Reviewed 05/14/18 @ 13:45 by Zoey Wang) History of coronary artery stent placement (Chronic 12/23/17) [id number] LAD 3.0 x 12 mm Promus Synergy 3/14/18 @ [facility] PTCA and CJ to mid LAD 11/14/2013 @ [facility] main [place] Left ventricular systolic dysfunction (Chronic) EF 45% per stress echo 11/01/2013 Nonrheumatic tricuspid valve regurgitation (Chronic) mild per stress echo 11/01/13 Nonrheumatic mitral valve regurgitation (Chronic) mild per stress echo 11/01/13 Pulmonary hypertension (Chronic) RVSP 56 mmhg per stress echo 11/01/13 Diabetes mellitus type II, controlled (Chronic) Hyperlipidemia (Chronic) Left bundle branch block (Chronic) Hypertension (Chronic) History of left heart catheterization (Chronic) LHC, followed by PTCA and CJ to mid LAD 11/14/[address] Rendon @ [facility] Atherosclerotic heart disease of [place] coronary artery without angina pectoris (Chronic) Stent to LAD 12/2017 Medical History: Medical History (Last Reviewed 05/14/18 @ 13:45 by Zoey Wang) Left ventricular systolic dysfunction (Chronic) I51.9 EF 45% per stress echo 11/01/2013 Nonrheumatic tricuspid valve regurgitation (Chronic) I36.1 mild per stress echo 11/01/13 Nonrheumatic mitral valve regurgitation (Chronic) I34.0 mild per stress echo 11/01/13 Pulmonary hypertension (Chronic) I27.20 RVSP 56 mmhg per stress echo 11/01/13 Diabetes mellitus type II, controlled (Chronic) E11.9 Hyperlipidemia (Chronic) E78.5 Left bundle branch block (Chronic) I44.7 Hypertension (Chronic) I10 Atherosclerotic heart disease of [place] coronary artery without angina pectoris (Chronic) I25.10 Stent to LAD 12/2017 Allergies Penicillins Allergy (Unknown, Verified 07/15/18 08:38) Unknown Home Medications: Ambulatory Orders Medication Instructions Recorded ascorbate calcium 500 mg tablet 500 mg PO QDAY 10/30/17 aspirin 81 mg tablet,delayed 81 mg PO QDAY 10/30/17 release atorvastatin 80 mg tablet 80 mg PO QDAY 10/30/17 cholecalciferol (vitamin D3) 400 400 unit PO QDAY 10/30/17 unit capsule lisinopril 20 mg tablet 20 mg PO BID tab 04/16/18 Labetalol [Trandate (Beta Sommer)] 100 mg PO BID 05/18/18 amlodipine 10 mg tablet 10 mg PO QDAY 06/01/18 Clopidogrel Bisulfate [Clopidogrel] 75 mg PO QDAY 07/15/18 Hydrochlorothiazide 12.5 mg PO QDAY 07/15/18 Lisinopril [Zestril] 10 mg PO DAILY 07/15/18 Surgical History: Surgical History (Last Reviewed 05/14/18 @ 13:45 by Zoey Wang) History of coronary artery stent placement (Chronic) Onset Date: 12/23/17 Z95.5 MVT-VQU-Yirl LAD 3.0 x 12 mm Promus Synergy 12/23/17 @ [facility] PTCA and CJ to mid LAD 11/14/2013 @ [facility] History of left heart catheterization (Chronic) Z98.890 [facility], followed by PTCA and CJ to mid LAD 11/14/[address] Rendon @ [facility] History of heart artery stent Z95.5 Smoking Status: Never smoker - *Family History Paternal Family History: Family History (Last Reviewed 05/14/18 @ 13:45 by Zoey Wang) Mother Diabetes Hypertension Father Diabetes CVA (cerebral vascular accident) Daughter Diabetes Pulmonary hypertension Review of Systems Constitutional: Denies: Anorexia HEENT: Denies: Difficulty Hearing Cardiovascular: Denies: Chest Pain Respiratory: Denies: Cough Gastrointestinal: Denies: Abdominal Pain Endocrine: Denies: Change in Body Habitus Patient Problems: Active and Suspected Problems (Last Reviewed 05/14/18 @ 13:45 by Zoey Wang) Near syncope (Acute) Gastroenteritis (Acute) Rectal bleeding (Acute) - Physical Exam General: Alert, Oriented x3, Cooperative, No apparent distress HEENT: Atraumatic Oral: Moist Mucosa Lungs: Clear to auscultation Cardiovascular: Regular rate, Regular Rhythm Abdomen: Bowel Sounds Present, Soft, Non Tender Extremities: No clubbing Neurological: Cranial nerves II-XII grossly intact Vital Signs Temp Pulse Resp BP Pulse Ox 98.3 F 74 16 156/50 H 99 07/16/18 15:15 07/16/18 15:15 07/16/18 15:15 07/16/18 15:15 07/16/18 15:15 Oxygen Delivery Method Room Air Weight: 123 lb 15.984 oz Body Mass Index (BMI) 21.9 Orthostatic Vital Signs Start: 07/16/18 05:32 Freq: q24h Status: Active Protocol: Activity Type Activity Date Activity User E-Sign Co-Sign Detail Recorded Client Recorded Date Recorded By Document 07/16/18 05:32 AR [id number] 07/16/18 05:37 AR 07/16/18 05:32 Orthostatic Vitals Standing -Blood Pressure (90/60-120/80) 149/58 H -Extremity Use Left Arm -Pulse Rate (60-100) 87 Sitting -Blood Pressure (90/60-120/80) 151/62 H -Extremity Use Left Arm -Pulse Rate (60-100) 82 Lying -Blood Pressure (90/60-120/80) 154/55 H -Extremity Use Left Arm -Pulse Rate (60-100) 82 Intake and Output for Last 24 Hours 07/14/18 07/15/18 07/16/18 23:59 23:59 23:59 Intake Total 2062 1765 / 1765 Balance 2062 1765 / 1765 Microbiology Past 72 Hours 07/16/18 12:15 Enteric Bacteriology - Final Stool 07/15/18 11:40 Stool Lactoferrin - Final Stool Laboratory Tests Past 24 Hrs 07/15/18 07/15/18 07/16/18 20:49 22:57 05:25 WBC RBC Hgb 12.8 Hct 38.8 MCV MCH MCHC RDW RDW Differential Plt Count MPV Immature Gran % (Auto) Neut % (Auto) Lymph % (Auto) [place] % (Auto) Eos % (Auto) Baso % (Auto) Absolute Neuts (auto) Absolute Lymphs (auto) Total Counted Sodium 141 Potassium 3.8 Chloride 108 H Carbon Dioxide 25.0 Anion Gap 8 BUN 12 Creatinine 0.80 Estim Creat Clear Calc 44.08 Est GFR (MDRD) Af Amer 89 Est GFR (MDRD) Non-Af 73 BUN/Creatinine Ratio 15.1 Glucose 136 H Calcium 8.0 L TSH 0.96 Urine Color Yellow Urine Clarity Clear Urine pH 5.0 Ur Specific [place] 1.020 Urine Protein 30 H Urine Glucose (UA) 50 H Urine Ketones 50 H Urine Occult Blood 150 H Urine Nitrite Negative Urine Bilirubin Negative Urine Urobilinogen Normal Ur Leukocyte Esterase 25 H Urine RBC 0-5 SEEN Urine WBC 0-5 SEEN Ur Squamous Epith Cells 0-5 SEEN Urine Bacteria RARE Urine Mucus 0 SEEN 07/16/18 07/16/18 05:25 14:22 WBC 16.4 H RBC 3.61 L Hgb 11.7 L 11.4 L Hct 34.3 L 34.5 L MCV 95.0 MCH 32.4 H MCHC 34.1 RDW 12.7 RDW Differential 42.8 Plt Count 235 MPV 9.1 Immature Gran % (Auto) 0.200 Neut % (Auto) 90.2 H Lymph % (Auto) 5.3 L [place] % (Auto) 4.2 Eos % (Auto) 0.0 Baso % (Auto) 0.1 Absolute Neuts (auto) 14.8 H Absolute Lymphs (auto) 0.86 Total Counted Not Reportable Sodium Potassium Chloride Carbon Dioxide Anion Gap BUN Creatinine Estim Creat Clear Calc Est GFR (MDRD) Af Amer Est GFR (MDRD) Non-Af BUN/Creatinine Ratio Glucose Calcium TSH Urine Color Urine Clarity Urine pH Ur Specific [place] Urine Protein Urine Glucose (UA) Urine Ketones Urine Occult Blood Urine Nitrite Urine Bilirubin Urine Urobilinogen Ur Leukocyte Esterase Urine RBC Urine WBC Ur Squamous Epith Cells Urine Bacteria Urine Mucus POC Glucose 07/16/18 07/16/18 07/15/18 11:23 06:51 20:36 POC Glucose 127 H 140 H 170 H 07/15/18 16:33 POC Glucose 155 H Assessment/Plan All Active Problems (Last Reviewed 05/14/18 @ 13:45 by Zoey Wang) Near syncope (Acute) Gastroenteritis (Acute) Rectal bleeding (Acute) Skin lesion (Acute) Abnormal stress echocardiogram (Resolved) I have proposed with the patient a combined esophagogastroduodenoscopy with possible biopsy and colonoscopy with possible biopsy or polypectomy is indicated. She is aware the technique, benefits, risks and alternatives. She is aware that secondary to the emergency nature of the procedures that there is increased risk. Upon reviewing her previous records it appears that she may have esophageal stricturing. She may have severe diverticular disease of the colon. This clearly will be an increase risk procedure. Patient and family members also aware that there is a very high likelihood that the source of bleeding will not be identified with this procedure. She has had an opportunity to ask questions answered. We will proceed urgently as described above. Juan Saucedo M.D., F.A.C.S.
--- NOTE | 2018-07-16 16:03 | CON.PCM_ITS ---
Problem List (1) Rectal bleeding Status: Acute Reason for Consult Date of Consultation: 07/16/18 History of Present Illness: The patient is a 83 year old F who was admitted to the was from the hospital yesterday with syncope and suspected rectal bleeding. I was consulted today because of drop in hemoglobin and ongoing problems with diarrhea and blood per rectum. Referring physician is and a electronic copy of my surgical report will be returned to him. The patient noted being on the commode at home and having syncope or near syncopal episode. She presented with diarrhea. C. difficile is still pending today. Other pathology not remarkable. On her presentation yesterday her white blood cell count was 5000 with a hemoglobin 13.6 hematocrit 41.1 and a platelet count of 257,000. Today her white blood cell count was 16.4 with a hemoglobin 11.7 and hematocrit 34.3 and a platelet count of 235,000 repeat hemoglobin at 220 was 11.4 with a hematocrit of 34.5. On her presentation her BUN is 15 creatinine 1.27 and then today BUN is 12 and creatinine 0.8. It is of note that she has had 2 coronary stents placed. She is on clopidogrel and aspirin. She denies previous history of stomach ulcer. She actually did not discussed that she previously had a problem but on December 30, 2010 Dr. Ivan Dasilva gastrology could not perform an upper endoscopy because of suspected hypertrophy of the cricopharyngeus muscle and inability to pass the upper scope. The patient says she had a previous colonoscopy 5 years ago but I cannot find records except those dating back to his longest 2002. At that point she did have colon polyps identified. She denies any previous history of rectal bleeding. She denies any current abdominal pain. She states she is never had any bouts of diverticulitis. Stool for lactoferrin is positive. Enteric bacteria not identified. C. difficile still pending Request has been made for an urgent colonoscopy. Unfortunately water supply for the endoscopy room tomorrow is curtailed. After discussion with anesthesia and endoscopy nurses was elected to push the patient through an urgent bowel prep this afternoon and perform endoscopy this evening Past Medical History Past Medical History (Chronic Problems): Chronic Problems (Last Reviewed 05/14/18 @ 13:45 by Zoey Wang) History of coronary artery stent placement (Chronic 12/23/17) [id number] LAD 3.0 x 12 mm Promus Synergy 3/14/18 @ [facility] PTCA and CJ to mid LAD 11/14/2013 @ [facility] main [place] Left ventricular systolic dysfunction (Chronic) EF 45% per stress echo 11/01/2013 Nonrheumatic tricuspid valve regurgitation (Chronic) mild per stress echo 11/01/13 Nonrheumatic mitral valve regurgitation (Chronic) mild per stress echo 11/01/13 Pulmonary hypertension (Chronic) RVSP 56 mmhg per stress echo 11/01/13 Diabetes mellitus type II, controlled (Chronic) Hyperlipidemia (Chronic) Left bundle branch block (Chronic) Hypertension (Chronic) History of left heart catheterization (Chronic) LHC, followed by PTCA and CJ to mid LAD 11/14/[address] Rendon @ [facility] Atherosclerotic heart disease of [place] coronary artery without angina pectoris (Chronic) Stent to LAD 12/2017 Medical History: Medical History (Last Reviewed 05/14/18 @ 13:45 by Zoey Wang) Left ventricular systolic dysfunction (Chronic) I51.9 EF 45% per stress echo 11/01/2013 Nonrheumatic tricuspid valve regurgitation (Chronic) I36.1 mild per stress echo 11/01/13 Nonrheumatic mitral valve regurgitation (Chronic) I34.0 mild per stress echo 11/01/13 Pulmonary hypertension (Chronic) I27.20 RVSP 56 mmhg per stress echo 11/01/13 Diabetes mellitus type II, controlled (Chronic) E11.9 Hyperlipidemia (Chronic) E78.5 Left bundle branch block (Chronic) I44.7 Hypertension (Chronic) I10 Atherosclerotic heart disease of [place] coronary artery without angina pectoris (Chronic) I25.10 Stent to LAD 12/2017 Allergies Penicillins Allergy (Unknown, Verified 07/15/18 08:38) Unknown Home Medications: Ambulatory Orders Medication Instructions Recorded ascorbate calcium 500 mg tablet 500 mg PO QDAY 10/30/17 aspirin 81 mg tablet,delayed 81 mg PO QDAY 10/30/17 release atorvastatin 80 mg tablet 80 mg PO QDAY 10/30/17 cholecalciferol (vitamin D3) 400 400 unit PO QDAY 10/30/17 unit capsule lisinopril 20 mg tablet 20 mg PO BID tab 04/16/18 Labetalol [Trandate (Beta Sommer)] 100 mg PO BID 05/18/18 amlodipine 10 mg tablet 10 mg PO QDAY 06/01/18 Clopidogrel Bisulfate [Clopidogrel] 75 mg PO QDAY 07/15/18 Hydrochlorothiazide 12.5 mg PO QDAY 07/15/18 Lisinopril [Zestril] 10 mg PO DAILY 07/15/18 Surgical History: Surgical History (Last Reviewed 05/14/18 @ 13:45 by Zoey Wang) History of coronary artery stent placement (Chronic) Onset Date: 12/23/17 Z95.5 XNH-UMU-Sina LAD 3.0 x 12 mm Promus Synergy 12/23/17 @ [facility] PTCA and CJ to mid LAD 11/14/2013 @ [facility] History of left heart catheterization (Chronic) Z98.890 [facility], followed by PTCA and CJ to mid LAD 11/14/[address] Rendon @ [facility] History of heart artery stent Z95.5 Smoking Status: Never smoker - *Family History Paternal Family History: Family History (Last Reviewed 05/14/18 @ 13:45 by Zoey Wang) Mother Diabetes Hypertension Father Diabetes CVA (cerebral vascular accident) Daughter Diabetes Pulmonary hypertension Review of Systems Constitutional: Denies: Anorexia HEENT: Denies: Difficulty Hearing Cardiovascular: Denies: Chest Pain Respiratory: Denies: Cough Gastrointestinal: Denies: Abdominal Pain Endocrine: Denies: Change in Body Habitus Patient Problems: Active and Suspected Problems (Last Reviewed 05/14/18 @ 13:45 by Zoey Wang) Near syncope (Acute) Gastroenteritis (Acute) Rectal bleeding (Acute) - Physical Exam General: Alert, Oriented x3, Cooperative, No apparent distress HEENT: Atraumatic Oral: Moist Mucosa Lungs: Clear to auscultation Cardiovascular: Regular rate, Regular Rhythm Abdomen: Bowel Sounds Present, Soft, Non Tender Extremities: No clubbing Neurological: Cranial nerves II-XII grossly intact Vital Signs Temp Pulse Resp BP Pulse Ox 98.3 F 74 16 156/50 H 99 07/16/18 15:15 07/16/18 15:15 07/16/18 15:15 07/16/18 15:15 07/16/18 15:15 Oxygen Delivery Method Room Air Weight: 123 lb 15.984 oz Body Mass Index (BMI) 21.9 Orthostatic Vital Signs Start: 07/16/18 05:32 Freq: q24h Status: Active Protocol: Activity Type Activity Date Activity User E-Sign Co-Sign Detail Recorded Client Recorded Date Recorded By Document 07/16/18 05:32 AR [id number] 07/16/18 05:37 AR 07/16/18 05:32 Orthostatic Vitals Standing -Blood Pressure (90/60-120/80) 149/58 H -Extremity Use Left Arm -Pulse Rate (60-100) 87 Sitting -Blood Pressure (90/60-120/80) 151/62 H -Extremity Use Left Arm -Pulse Rate (60-100) 82 Lying -Blood Pressure (90/60-120/80) 154/55 H -Extremity Use Left Arm -Pulse Rate (60-100) 82 Intake and Output for Last 24 Hours 07/14/18 07/15/18 07/16/18 23:59 23:59 23:59 Intake Total 2062 1765 / 1765 Balance 2062 1765 / 1765 Microbiology Past 72 Hours 07/16/18 12:15 Enteric Bacteriology - Final Stool 07/15/18 11:40 Stool Lactoferrin - Final Stool Laboratory Tests Past 24 Hrs 07/15/18 07/15/18 07/16/18 20:49 22:57 05:25 WBC RBC Hgb 12.8 Hct 38.8 MCV MCH MCHC RDW RDW Differential Plt Count MPV Immature Gran % (Auto) Neut % (Auto) Lymph % (Auto) [place] % (Auto) Eos % (Auto) Baso % (Auto) Absolute Neuts (auto) Absolute Lymphs (auto) Total Counted Sodium 141 Potassium 3.8 Chloride 108 H Carbon Dioxide 25.0 Anion Gap 8 BUN 12 Creatinine 0.80 Estim Creat Clear Calc 44.08 Est GFR (MDRD) Af Amer 89 Est GFR (MDRD) Non-Af 73 BUN/Creatinine Ratio 15.1 Glucose 136 H Calcium 8.0 L TSH 0.96 Urine Color Yellow Urine Clarity Clear Urine pH 5.0 Ur Specific [place] 1.020 Urine Protein 30 H Urine Glucose (UA) 50 H Urine Ketones 50 H Urine Occult Blood 150 H Urine Nitrite Negative Urine Bilirubin Negative Urine Urobilinogen Normal Ur Leukocyte Esterase 25 H Urine RBC 0-5 SEEN Urine WBC 0-5 SEEN Ur Squamous Epith Cells 0-5 SEEN Urine Bacteria RARE Urine Mucus 0 SEEN 07/16/18 07/16/18 05:25 14:22 WBC 16.4 H RBC 3.61 L Hgb 11.7 L 11.4 L Hct 34.3 L 34.5 L MCV 95.0 MCH 32.4 H MCHC 34.1 RDW 12.7 RDW Differential 42.8 Plt Count 235 MPV 9.1 Immature Gran % (Auto) 0.200 Neut % (Auto) 90.2 H Lymph % (Auto) 5.3 L [place] % (Auto) 4.2 Eos % (Auto) 0.0 Baso % (Auto) 0.1 Absolute Neuts (auto) 14.8 H Absolute Lymphs (auto) 0.86 Total Counted Not Reportable Sodium Potassium Chloride Carbon Dioxide Anion Gap BUN Creatinine Estim Creat Clear Calc Est GFR (MDRD) Af Amer Est GFR (MDRD) Non-Af BUN/Creatinine Ratio Glucose Calcium TSH Urine Color Urine Clarity Urine pH Ur Specific [place] Urine Protein Urine Glucose (UA) Urine Ketones Urine Occult Blood Urine Nitrite Urine Bilirubin Urine Urobilinogen Ur Leukocyte Esterase Urine RBC Urine WBC Ur Squamous Epith Cells Urine Bacteria Urine Mucus POC Glucose 07/16/18 07/16/18 07/15/18 11:23 06:51 20:36 POC Glucose 127 H 140 H 170 H 07/15/18 16:33 POC Glucose 155 H Assessment/Plan All Active Problems (Last Reviewed 05/14/18 @ 13:45 by Zoey Wang) Near syncope (Acute) Gastroenteritis (Acute) Rectal bleeding (Acute) Skin lesion (Acute) Abnormal stress echocardiogram (Resolved) I have proposed with the patient a combined esophagogastroduodenoscopy with possible biopsy and colonoscopy with possible biopsy or polypectomy is indicated. She is aware the technique, benefits, risks and alternatives. She is aware that secondary to the emergency nature of the procedures that there is increased risk. Upon reviewing her previous records it appears that she may have esophageal stricturing. She may have severe diverticular disease of the colon. This clearly will be an increase risk procedure. Patient and family me mbers also aware that there is a very high likelihood that the source of bleeding will not be identified with this procedure. She has had an opportunity to ask questions answered. We will proceed urgently as described above. Juan Saucedo M.D., F.A.C.S.
[2018-07-16] MEDS: Fleet Enema 1 ML RECTAL (16:13)
[2018-07-16 16:26] LABS: Bedside Glucose 126 mg/dL (70-110)
--- NOTE | 2018-07-16 16:52 | NURSING ---
pharmacist Barney notified this RN that saline enema is harmful if given more than once in a 24hr period. Dr. Saucedo made aware. Dr. Saucedo states I have never heard of that but document in the chart that pt will not be getting any more enemas for this reason. Dr. Saucedo was made aware by this RN that pt's stool is yellow and mucousy. Dr. Saucedo told this RN that it is okay to send pt to [facility]. Report called to Bhavya MCKEON in [facility]
--- NOTE | 2018-07-16 17:30 | EGD_PTH ---
PATIENT: DAVID GRAY LOC: [facility] U#:[id number] AGE/SX: 83/F ROOM: [facility] RE07/15/[address]: Dr. Rex Carvajal MD : [id number] BED: 1 DIS: 07/19/2018 SPEC #: [id number] RECD: 07/16/18 21:13 STATUS: BRIAN RE #: [id number] MARIA ALEJANDRA: 07/16/18 17:[address]: Juan Saucedo DEPT: SURGICAL PATHOLOGY RECD BY: Adam Cha ENTERED: 07/19/18 11:55 SP TYPE: EGD BIOPSY OTHR DR: MD Dr. Rex Worley MD Dr. Prakash Chand, MD Dr. Robert D Cebul, MD Tissues: A - Gastric mucous membrane B - Gastric mucous membrane C - Sigmoid colon biopsy Procedures: Surgery Specimen Level IV Comments: @ Ordering doctor for SUIV edited from to @ antony LOYA at 07/19/18 1524 @ Submitting doctor edited from to @ by SHALINI at 07/19/18 1524 HEADER OPERATION: Colonoscopy, EGD ([facility]) PRE-OP DIAGNOSIS: GI bleed, gastroenteritis TISSUE SUBMITTED: A - Antrum biopsy for H. pylori and path, B - GE junction biopsy, C - Sigmoid biopsy MICROSCOPIC DIAGNOSIS A. Antrum, biopsy: Chronic active gastritis. B. GE junction, biopsy; A fragment of squamous epithelium with mild chronic inflammation. C. Sigmoid colon, biopsy: A fragment of colonic mucosa with changes consistent with ischemic colitis. HOLDEN:landry 07/20/18 COMMENT A. The results of immunohistochemistry for Helicobacter pylori will be reported separately ([id number]). MICROSCOPIC DESCRIPTION Slides are reviewed. GROSS DESCRIPTION A - Received in fixative is one container labeled with the patient's name and designated antrum biopsy. The specimen consists of one irregular fragment of light cornelius soft tissue that measures 0.7 x 0.2 x 0.1 cm. The specimen is totally submitted in one cassette. B - Received in fixative is one container labeled with the patient's name and designated GE junction biopsy. The specimen consists of one irregular fragment of light [place] soft tissue that measures 0.8 x 0.2 x 0.1 cm. The specimen is totally submitted in one cassette. C - Received in fixative is one container labeled with the patient's name and designated sigmoid biopsy. The specimen consists of one irregular fragment of light cornel[place] soft tissue that measures 0.1 cm in greatest dimension. The specimen is totally submitted in one cassette. / SJ:rg TC:2 CPT: 36506 x3
--- NOTE | 2018-07-16 18:14 | OP.ENDO_ITS ---
Patient Name: Joann Andrade Procedure Date: 07/16/2018 5:19 PM Date of : 1935 Age: 83 Procedure: Upper GI endoscopy Indications: Active gastrointestinal bleeding Providers: Juan Saucedo MD Medicines: See the Anesthesia note for documentation of the administered medications Complications: No immediate complications. Procedure: Pre-Anesthesia Assessment: - Prior to the procedure, a History and Physical was performed, and patient medications and allergies were reviewed. The patient's tolerance of previous anesthesia was also reviewed. The risks and benefits of the procedure and the sedation options and risks were discussed with the patient. All questions were answered, and informed consent was obtained. Prior Anticoagulants: The patient has taken Plavix (clopidogrel), last dose was 2 days prior to procedure. ASA Grade Assessment: III - A patient with severe systemic disease. After reviewing the risks and benefits, the patient was deemed in satisfactory condition to undergo the procedure. After obtaining informed consent, the endoscope was passed under direct vision. Throughout the procedure, the patient's blood pressure, pulse, and oxygen saturations were monitored continuously. The gastroscope was introduced through the mouth, and advanced to the second part of duodenum. The upper GI endoscopy was accomplished without difficulty. The patient tolerated the procedure well. Scope In: 5:38:45 PM Scope Out: 5:45:57 PM Total Procedure Duration Time 0 hours 7 minutes 12 seconds Findings: The Z-line was regular and was found 37 cm from the incisors. Biopsies were taken with a cold forceps for histology. A small hiatal hernia was present. One benign-appearing, intrinsic stenosis was found 37 cm from the incisors. This stenosis was mildly severe and. Diffuse mildly erythematous mucosa without bleeding was found in the gastric antrum. Biopsies were taken with a cold forceps for histology. The examined duodenum was normal. Impression: - Z-line regular, 37 cm from the incisors. Biopsied. - Small hiatal hernia. - Benign-appearing esophageal stenosis/schatzki ring at 37cm - Erythematous mucosa in the antrum. Biopsied. - Normal examined duodenum. Recommendation: - Clear liquid diet. - Continue present medications. - Telephone my office for pathology results in 1 week. Procedure Code(s): --- Professional --- 04365, Esophagogastroduodenoscopy, flexible, transoral; with biopsy, single or multiple Diagnosis Code(s): --- Professional --- K44.9, Diaphragmatic hernia without obstruction or gangrene K22.2, Esophageal obstruction K31.89, Other diseases of stomach and duodenum K92.2, Gastrointestinal hemorrhage, unspecified CPT copyright 2017 [employer]. All rights reserved. The codes documented in this report are preliminary and upon industrial maintenance manager review may be revised to meet current compliance requirements. Juan Saucedo MD 07/16/2018 6:14:10 PM This report has been signed electronically. Number of Addenda: 0 Note Initiated On: 07/16/2018 5:19 PM
--- NOTE | 2018-07-16 18:20 | OP.ENDO_ITS ---
Patient Name: Joann Andrade Procedure Date: 07/16/2018 5:49 PM Date of : 1935 Age: 83 Procedure: Colonoscopy Indications: Rectal bleeding Providers: Juan Saucedo MD Medicines: See the Anesthesia note for documentation of the administered medications Patient Profile: Last Colonoscopy: more than 10 years ago. Complications: No immediate complications. Procedure: Pre-Anesthesia Assessment: - Prior to the procedure, a History and Physical was performed, and patient medications and allergies were reviewed. The patient's tolerance of previous anesthesia was also reviewed. The risks and benefits of the procedure and the sedation options and risks were discussed with the patient. All questions were answered, and informed consent was obtained. Prior Anticoagulants: The patient has taken Plavix (clopidogrel), last dose was 2 days prior to procedure. ASA Grade Assessment: III - A patient with severe systemic disease. After reviewing the risks and benefits, the patient was deemed in satisfactory condition to undergo the procedure. After I obtained informed consent, the scope was passed under direct vision. Throughout the procedure, the patient's blood pressure, pulse, and oxygen saturations were monitored continuously. The colonoscope was introduced through the anus and advanced to the sigmoid colon. The colonoscopy was technically difficult and complex due to bowel stenosis. The patient tolerated the procedure well. The quality of the bowel preparation was good. Scope In: 5:51:12 PM Scope Out: 6:05:35 PM Total Procedure Duration Time 0 hours 14 minutes 23 seconds Findings: The digital rectal exam findings include non-thrombosed external hemorrhoids, non-thrombosed internal hemorrhoids and internal hemorrhoids that prolapse with straining, but require manual replacement into the anal canal (Grade III). Pertinent negatives include lax anal tone. A localized area of severely congested, erythematous, hemorrhagic, inflamed and ulcerated mucosa was found in the mid sigmoid colon and in the distal sigmoid colon. Biopsies were taken with a cold forceps for histology. Impression: - Non-thrombosed external hemorrhoids, non-thrombosed internal hemorrhoids and internal hemorrhoids that prolapse with straining, but require manual replacement into the anal canal (Grade III) found on digital rectal exam. - Congested, erythematous, hemorrhagic, inflamed and ulcerated mucosa in the mid sigmoid colon and in the distal sigmoid colon. Biopsied. Findings suggest acute ischemic colitis. Discussed with Dr Hannon Recommendation: - Zosyn (piperacillin tazobactam) 3.375 gm IV q 6 hr. - Repeat colonoscopy in 1 month for surveillance. - Return to my office in 2 weeks. - Continue present medications. Procedure Code(s): --- Professional --- 92977, 52, Colonoscopy, flexible; with biopsy, single or multiple Diagnosis Code(s): --- Professional --- K64.2, Third degree hemorrhoids K64.4, Residual hemorrhoidal skin tags K63.89, Other specified diseases of intestine K92.2, Gastrointestinal hemorrhage, unspecified K52.9, Noninfective gastroenteritis and colitis, unspecified K63.3, Ulcer of intestine K62.5, Hemorrhage of anus and rectum CPT copyright 2017 [employer]. All rights reserved. The codes documented in this report are preliminary and upon medical record coder review may be revised to meet current compliance requirements. Juan Saucedo MD 07/16/2018 6:19:34 PM This report has been signed electronically. Number of Addenda: 0 Note Initiated On: 07/16/2018 5:49 PM
[2018-07-16] MEDS: 0.9% Normal Saline 1,000 ML 75 ML IV (18:59)
[2018-07-16] MEDS: levoFLOXacin IV 500 MG/100 ML BAG 100 MG IV (20:06)
[2018-07-16] MEDS: Atorvastatin Calcium 80 MG Tablet PO (21:47)
[2018-07-16 22:15] LABS: Hemoglobin 10.4 g/dl (12.0-15.0)
[2018-07-17] VITALS (11 sets, daily range): BP systolic 136–154; BP diastolic 52–67; PULSE 73–92; RESP 16–20; TEMP 36.8–37.3; O2SAT 93–97
[2018-07-17 00:36] LABS: Bedside Glucose 116 mg/dL (70-110)
[2018-07-17] MEDS: 0.9% NaCl Peripheral Flush Adult/Peds IV ×2 (05:46→06:25)
--- NOTE | 2018-07-17 06:00 | CT_ITS ---
STUDY: CT ABDOMEN AND PELVIS WITH CONTRAST REASON FOR EXAM: Female, 83 years old. Diarrhea and acute ischemic colitis, scope done yesterday RADIATION DOSAGE (If Supplied By Facility): CTDIvol = ( 9.53 ) mGy, DLP = ( 415.49 ) mGycm TECHNIQUE: Transaxial images were obtained from the dome of the diaphragm to the symphysis pubis with oral contrast. 100ML ml of Isovue 300 contrast was administered. Sagittal and coronal images were reconstructed. Individualized dose optimization techniques were used for this CT. COMPARISON: None. FINDINGS: Bilateral pleural effusions. The visualized portions of the heart are within normal limits. Normal liver. Normal gallbladder and extrahepatic biliary system. Normal spleen. Normal pancreas. Normal bilateral adrenal glands. Normal right kidney. Normal left kidney. Normal visualized stomach. Normal small intestine. There are multiple colonic diverticula consistent with diverticulosis. Circumferential wall thickening of the descending colon and splenic flexure with adjacent fatty stranding is present, suspicious for colitis. There is non-visualization of the appendix. There is diffuse atherosclerotic calcification of the abdominal aorta, without a demonstrated aneurysm. Normal inferior vena cava. Normal retroperitoneum. Normal urinary bladder. Free pelvic fluid. Normal abdominal wall. There are diffuse degenerative changes of the visualized lumbar spine. CT/Abdomen/Pelvis WITH Contrast IMPRESSION: CT findings suggest colitis of the descending colon and splenic flexure. Bilateral pleural effusions. Free pelvic fluid. Electronically Signed: Franc Kimble MD at 6:13 EDT Tel , Service support ,
[2018-07-17 07:00] LABS: Bedside Glucose 78 mg/dL (70-110)
[2018-07-17 07:14] LABS: Absolute Lymphocyte Count 0.96 X10^3/ul (0.83-4.51); Absolute Neutrophil Count 9.8 X10^3/uL (2.0-7.7); Basophil# 0.01 X10^3/uL; Basophil% 0.1 % (0-1); Eosinophil# 0.01 X10^3/uL; Eosinophils% 0.1 % (0-5); Hematocrit 30.4 % (37-47); Hemoglobin 9.8 g/dl (12.0-15.0); Lymphocyte # 0.96 X10^3/ul (4.0); Lymphocyte % 8.4 % (19-41); Mean Corp Hgb Conc 32.2 g/gl (32-36); Mean Corpuscular Hgb 31.2 pg (27.0-32.0); Mean Corpuscular Volume 96.8 fL (81-99); Mean Platelet Vol. 9.4 fl (6.2-12.0); Monocyte# 0.63 X10^3/uL; Monocyte% 5.5 % (0-10); Neutrophil # 9.78 X10^3/uL (2.7-7.7); Neutrophil % 85.7 % (47-70); Platelet Count 199 K/mm3 (150-450); RBC Distribution Width SD 43.6 fl (35.1-43.9); Red Blood Count 3.14 M/mm3 (4.2-5.4); White Blood Count 11.4 K/mm3 (4.4-11.0)
[2018-07-17 07:22] LABS: POSITIVE COUNT NO; POSITIVE DIFFERENTIAL NO; POSITIVE MORPHOLOGY NO
[2018-07-17 07:31] LABS: Anion Gap 8 (5-15); BUN 6 mg/dL (7-18); BUN/Creat Ratio 9.3 RATIO (10-20); Calcium,Total 7.8 mg/dL (8.5-10.1); Chloride 107 mmol/L (98-107); Creatinine, Serum 0.65 mg/dL (0.55-1.02); EST Glomerular Filtration Rate 93 mL/min (>60); Est Glom Filt Rate - Afr Amer 113 mL/min (>60); Estimated Creatinine Clearance 35.26 ml/min; Glucose 82 mg/dL (74-106); Potassium 3.1 mmol/L (3.5-5.1); Sodium Level 142 mmol/L (136-145)
--- NOTE | 2018-07-17 07:47 | PN.SURG_ITS ---
Patient Problems: Active and Suspected Problems (Last Reviewed 05/14/18 @ 13:45 by Zoey Wang) Near syncope (Acute) Gastroenteritis (Acute) Rectal bleeding (Acute) Subjective: Pt now remembers that 4 days ago she noted some left upper quadrant abdominal pain but didnt think much of it No specific complaints now - Physical Exam General: Alert, Oriented x3 Abdomen: Bowel Sounds Present - minimal tenderness left mid abdomen, Soft Vital Signs Temp Pulse Resp BP Pulse Ox 98.3 F 79 20 H 142/56 H 97 07/17/18 04:16 07/17/18 04:31 07/17/18 04:16 07/17/18 04:31 07/17/18 07:05 Oxygen Flow Rate (L/min) 2 Oxygen Delivery Method Room Air Weight: 123 lb 15.984 oz Body Mass Index (BMI) 21.9 Orthostatic Vital Signs Start: 07/16/18 05:32 Freq: q24h Status: Active Protocol: Activity Type Activity Date Activity User E-Sign Co-Sign Detail Recorded Client Recorded Date Recorded By Document 07/17/18 04:31 [facility] [facility] [id number] 07/17/18 04:39 EEJ 07/17/18 04:31 Orthostatic Vitals Standing -Blood Pressure (90/60-120/80 mm Hg) 154/52 H -Extremity Use Left Arm -Pulse Rate (60-100 beats/min) 89 Sitting -Blood Pressure (90/60-120/80 mm Hg) 139/58 H -Extremity Use Left Arm -Pulse Rate (60-100 beats/min) 84 Lying -Blood Pressure (90/60-120/80 mm Hg) 142/56 H -Extremity Use Left Arm -Pulse Rate (60-100 beats/min) 79 Intake and Output for Last 24 Hours 07/15/18 07/16/18 07/17/18 23:59 23:59 23:59 Intake Total 2062 8125 / 8125 876 / 876 Balance 2062 8125 / 8125 876 / 876 Microbiology Past 72 Hours 07/16/18 12:15 C. difficile DNA Amplification - Final Stool 07/16/18 12:15 Enteric Bacteriology - Final Stool 07/15/18 11:40 Stool Lactoferrin - Final Stool Laboratory Tests Past 24 Hrs 07/16/18 07/16/18 07/17/18 14:22 21:55 06:25 WBC 11.4 H RBC 3.14 L Hgb 11.4 L 10.4 L 9.8 L Hct 34.5 L 31.0 L 30.4 L MCV 96.8 MCH 31.2 MCHC 32.2 RDW 13.0 RDW Differential 43.6 Plt Count 199 MPV 9.4 Immature Gran % (Auto) 0.200 Neut % (Auto) 85.7 H Lymph % (Auto) 8.4 L Carbon % (Auto) 5.5 Eos % (Auto) 0.1 Baso % (Auto) 0.1 Absolute Neuts (auto) 9.8 H Absolute Lymphs (auto) 0.96 Total Counted Not Reportable Sodium Potassium Chloride Carbon Dioxide Anion Gap BUN Creatinine Estim Creat Clear Calc Est GFR (MDRD) Af Amer Est GFR (MDRD) Non-Af BUN/Creatinine Ratio Glucose Calcium 07/17/18 06:25 WBC RBC Hgb Hct MCV MCH MCHC RDW RDW Differential Plt Count MPV Immature Gran % (Auto) Neut % (Auto) Lymph % (Auto) Carbon % (Auto) Eos % (Auto) Baso % (Auto) Absolute Neuts (auto) Absolute Lymphs (auto) Total Counted Sodium 142 Potassium 3.1 L Chloride 107 Carbon Dioxide 27.0 Anion Gap 8 BUN 6 L Creatinine 0.65 Estim Creat Clear Calc 35.26 Est GFR (MDRD) Af Amer 113 Est GFR (MDRD) Non-Af 93 BUN/Creatinine Ratio 9.3 L Glucose 82 Calcium 7.8 L POC Glucose 07/17/18 07/16/18 07/16/18 06:55 21:46 16:07 POC Glucose 78 116 H 126 H 07/16/18 11:23 POC Glucose 127 H Medical Necessity - Tobacco Use Smoking Status: Never smoker Assessment/Plan All Active Problems (Last Reviewed 05/14/18 @ 13:45 by Zoey Wang) Near syncope (Acute) Gastroenteritis (Acute) Rectal bleeding (Acute) Skin lesion (Acute) Abnormal stress echocardiogram (Resolved) CT c/w visualized acute colitis sigmoid/descending colon Pt on levoquin and metronidazole Would hold at clear liquids; mucosal inflammation/slough was impressive C.diff negative Leukocytosis improved. Ongoing progressive anemia noted. As the colon improves this will stabilize Hypokalemia; replace Need to mobilize
[2018-07-17 08:46] LABS: Magnesium 1.8 mg/dL (1.6-2.6)
[2018-07-17] MEDS: Labetalol 100 MG Tablet PO ×2 (08:50→21:02)
[2018-07-17] MEDS: Lisinopril 10 MG Tablet PO (08:50)
[2018-07-17] MEDS: amLODIPine 10 MG Tablet PO (08:50)
--- NOTE | 2018-07-17 09:04 | PN_ITS ---
Patient Problems: Active and Suspected Problems (Last Reviewed 05/14/18 @ 13:45 by Zoey Wang) Near syncope (Acute) Gastroenteritis (Acute) Rectal bleeding (Acute) Subjective: Patient had liquid diarrhea after colon prep yesterday night. Seems blood has almost cleared up. Patient had low-grade temperature 99.8?F. But no high-grade fever or chills. Found mid sigmoid/distal sigmoid colitis, possible ischemic colitis/infectious colitis. On IV antibiotics Levaquin and Flagyl Denies any abdominal pain. Vitals/I&O's: Vital Signs Temp Pulse Resp BP Pulse Ox 98.3 F 80 16 136/67 H 93 07/17/18 08:50 07/17/18 08:50 07/17/18 08:50 07/17/18 08:50 07/17/18 08:50 Oxygen Flow Rate (L/min) 2 Oxygen Delivery Method Room Air Weight: 123 lb 15.984 oz Body Mass Index (BMI) 21.9 Orthostatic Vital Signs Start: 07/16/18 05:32 Freq: q24h Status: Active Protocol: Activity Type Activity Date Activity User E-Sign Co-Sign Detail Recorded Client Recorded Date Recorded By Document 07/17/18 04:31 [facility] [place] [id number] 07/17/18 04:39 EEJ 07/17/18 04:31 Orthostatic Vitals Standing -Blood Pressure (90/60-120/80) 154/52 H -Extremity Use Left Arm -Pulse Rate (60-100) 89 Sitting -Blood Pressure (90/60-120/80) 139/58 H -Extremity Use Left Arm -Pulse Rate (60-100) 84 Lying -Blood Pressure (90/60-120/80) 142/56 H -Extremity Use Left Arm -Pulse Rate (60-100) 79 Intake and Output for Last 24 Hours 07/15/18 07/16/18 07/17/18 23:59 23:59 23:59 Intake Total 2062 8125 / 8125 876 / 876 Balance 2062 8125 / 8125 876 / 876 General: Alert, Oriented x3, Cooperative HEENT: Atraumatic, PERRLA, EOMI, Normocephalic Neck: Supple, No JVD, Negative Carotid Bruits Lungs: Clear to auscultation, Normal air movement, No rhonchi, No wheeze Cardiovascular: Regular rate, Regular Rhythm, Normal S1, Normal S2, No murmurs, - - Occasional PVCs. Abdomen: Bowel Sounds Present, Soft, Non-Distended, Hypoactive Bowel Sounds, Tender - Mild tenderness on left upper and lower quadrant on deep palpation. No rebound tenderness. Extremities: No edema, Capillary Refill Less than 3 Seconds Skin: No rashes, No breakdown Musculoskeletal: No Tenderness to Palpation of Joints or Extremities, Arthritic Changes Neurological: Cranial nerves II-XII grossly intact Psych/Mental Status: Normal Affect, Appropriate Microbiology Past 72 Hours 07/16/18 12:15 Stool C. difficile DNA Amplification - Final 07/16/18 12:15 Stool Enteric Bacteriology - Final 07/15/18 11:40 Stool Stool Lactoferrin - Final Laboratory Results 07/16/18 11:23: POC Glucose 127 H 07/16/18 14:22: Hgb 11.4 L, Hct 34.5 L 07/16/18 16:07: POC Glucose 126 H 07/16/18 21:46: POC Glucose 116 H 07/16/18 21:55: Hgb 10.4 L, Hct 31.0 L 07/17/18 06:25: WBC 11.4 H, RBC 3.14 L, Hgb 9.8 L, Hct 30.4 L, MCV 96.8, MCH 31. 2, MCHC 32.2, RDW 13.0, RDW Differential 43.6, Plt Count 199, MPV 9.4, Immature Gran % (Auto) 0.200, Neut % (Auto) 85.7 H, Lymph % (Auto) 8.4 L, [place] % (Auto) 5.5, Eos % (Auto) 0.1, Baso % (Auto) 0.1, Absolute Neuts (auto) 9.8 H, Absolute Lymphs (auto) 0.96, Total Counted Not Reportable 07/17/18 06:25: Sodium 142, Potassium 3.1 L, Chloride 107, Carbon Dioxide 27.0, Anion Gap 8, BUN 6 L, Creatinine 0.65, Estim Creat Clear Calc 35.26, Est GFR (MDRD) Af Amer 113, Est GFR (MDRD) Non-Af 93, BUN/Creatinine Ratio 9.3 L, Glucose 82, Calcium 7.8 L 07/17/18 06:25: Magnesium 1.8 07/17/18 06:55: POC Glucose 78 Current Medications Acetaminophen (Tylenol) 650 mg PO Q6H PRN PRN PRN Reason: Mild Pain (scale 0-3)/T>100.7 Al Hydroxide/Mg Hydroxide (Mylanta Ii) 30 ml PO Q6H PRN PRN PRN Reason: Gastric burning Amlodipine Besylate (Norvasc) 10 mg PO DAILY [facility] Last Admin: 07/17/18 08:50 Dose: 10 mg Atorvastatin Calcium (Lipitor) 80 mg PO QHS [facility] Last Admin: 07/16/18 21:47 Dose: 80 mg Dextrose (D50w Syringe) 0 gm IV X1 PRN; Protocol PRN Reason: Hypoglycemia Glucagon () 1 mg IM .X1 PRN PRN Reason: Hypoglycemia Pantoprazole Sodium 40 mg/ (Sodium Chloride) 110 mls @ 330 mls/hr IV Q12 [facility] Last Admin: 07/17/18 08:40 Dose: 330 mls/hr Sodium Chloride () 1,000 mls @ 75 mls/hr IV .[id number] [facility] Last Admin: 07/16/18 18:59 Dose: 75 mls/hr Metronidazole (Flagyl) 500 mg in 100 mls @ 100 mls/hr IV Q8 [facility] Last Admin: 07/17/18 04:40 Dose: 100 mls/hr Levofloxacin (Levaquin Iv) 250 mg in 50 mls @ 50 mls/hr IV Q24 [facility] Potassium Chloride (Kcl 10meq/100ml) 10 meq in 100 mls @ 100 mls/hr IV BOLUS Q1H [facility] Stop: 07/17/18 10:29 Insulin Human Lispro (Humalog Kwikpen (Bkc)) 0 unit SQ ACHS [facility]; Protocol Last Admin: 07/17/18 07:49 Dose: Not Given Labetalol HCl (Trandate) 100 mg PO BID [facility] Last Admin: 07/17/18 08:50 Dose: 100 mg Lactobacillus Acidophilus (Acidophilus) 1 tablet PO BID [facility] Lisinopril (Zestril) 10 mg PO DAILY [facility] Last Admin: 07/17/18 08:50 Dose: 10 mg Morphine Sulfate () 1 - 2 mg IV Q4H PRN PRN PRN Reason: SEVERE PAIN (6-07/21) Nutritional Formula (Lactose Free) (Ensure Clear) 120 ml PO 4X/DAY [facility] Last Admin: 07/17/18 08:51 Dose: 120 ml Ondansetron HCl (Zofran) 4 mg IV Q8H PRN PRN PRN Reason: NAUSEA Oxycodone HCl (Oxyir) 5 mg PO Q4H PRN PRN PRN Reason: Moderate Pain (pain scale 4-5) Potassium Chloride (K-Dur) 20 meq PO BIDCM [facility] Promethazine HCl (Phenergan) 12.5 mg IV Q6H PRN PRN PRN Reason: NAUSEA/VOMITING Sodium Biphosphate/Sodium Phosphate (Fleet Enema) 1 bottle RECTAL X1 ONE Stop: 07/16/18 17:01 Sodium Chloride () 5 - 30 ml IV UD PRN PRN Reason: SALINE FLUSH Last Admin: 07/17/18 06:25 Dose: 10 ml Zolpidem Tartrate (Ambien (Generic)) 5 mg PO QHS PRN PRN PRN Reason: INSOMNIA Medical Necessity - Tobacco Use Smoking Status: Never smoker Assessment/Plan All Active Problems (Last Reviewed 05/14/18 @ 13:45 by Zoey Wang) Near syncope (Acute) Gastroenteritis (Acute) Rectal bleeding (Acute) Skin lesion (Acute) Abnormal stress echocardiogram (Resolved) The patient is a 83 year old F who was brought to ER by EMS for near syncope symptoms after she had nausea, vomiting and diarrhea. Patient woke up fine and walked her dog. And she felt nauseated and stomach upset and went to bathroom where she had vomited and had loose bowel movement. After that she was dizzy lightheaded and does not remember. Her went to the bathroom to check as she was there for a long time. She was lethargic and perhaps syncope, although not clear. [] She was found positive orthostatic hypotension in the ER. Chest x-ray no acute change. EMS EKG sinus rhythm at 58 bpm with supraventricular complexes with left bundle branch block. Similar findings of sinus bradycardia at 52 bpm with left bundle branch block in ER On the floor, as per the nursing staff she had some blood in the stool. 1. Near syncope with from orthostatic hypotension, probably from lower GI blood loss due to ischemic/infectious colitis: Patient is being admitted in PCU. Patient was given IV fluid initially to correct dehydration and she is well hydrated now. Repeat orthostatic blood pressure does not show drop and is n egative. Serial troponins are negative. Patient has single-vessel coronary artery disease for which she had a stent in proximal LAD December 2017. Prior to that she had positive stress echo with EF 55% and mildly hypokinetic mid anterior and lateral aspects. She follows Dr. Rangel. 2. Acute anemia, blood loss anemia from lower GI bleed, from antiplatelet agents: Orthostatic hypotension was present in ER but now resolved after IV fluid rehydration. In ED, blood pressure dropped from 128/51, heart rate in supine position to 76-68/37, heart rate 47 on standing. Patient had colonoscopy yesterday and was reaching up to 20 cm because of inflamed, erythematous, congested and hemorrhagic mucosa at the mid and distal sigmoid level. Colonoscopy report reviewed and also found nonthrombosed ex ternal or internal hemorrhoids, grade 3. EGD was done and shows small hiatus hernia with benign-appearing esophageal stenosis/Schatzki ring at 37 cm. Mild antritis. Normal duodenum. Discussed with Dr. Saucedo and we agreed to keep patient on clear liquid. Hemoglobin has dropped from 13.6-9.8. Monitor H&H every 8 hourly and expect stable hemoglobin here after as bleeding has stopped. IV Protonix 40 mg twice daily Hold aspirin and Plavix for now. She had 6 months after stent in LAD in December 2017. 3. Possible ischemic/infectious distal colitis. Patient had temperature 99.6 to 99.8, low-grade fever/possible mild diurnal variation. Patient had mild leukocytosis yesterday which has subsided on IV antibiotics Levaquin and Flagyl that was started yesterday. Stool for leukocytes positive. Enteric bacteriology panel and C. difficile are negative. 4. Diabetes mellitus type 2, controlled: Blood sugar is 146. Accu-Chek before meals and at bedtime and cover with NovoLog sliding scale. Other chronic comorbidities include dyslipidemia, chronic left bundle branch block, hypertension and coronary artery status post stent as mentioned above: Home medication reconciliation done. DVT prophylaxis: Bilateral SCDs. Hold pharmacological prophylaxis until issues of GI bleed is resolved Code Visit Inpatient E&M: 87240 [facility] L[facility]
[2018-07-17] MEDS: levoFLOXacin IV 250 MG/50 ML BAG 50 MG IV (09:53)
[2018-07-17 11:20] LABS: Bedside Glucose 109 mg/dL (70-110)
[2018-07-17] MEDS: 0.9% Normal Saline 1,000 ML 75 ML IV (13:49)
[2018-07-17 16:11] LABS: Bedside Glucose 71 mg/dL (70-110)
[2018-07-17 20:21] LABS: Hemoglobin 10.6 g/dl (12.0-15.0)
[2018-07-17] MEDS: Atorvastatin Calcium 80 MG Tablet PO (21:02)
[2018-07-17 21:26] LABS: Bedside Glucose 70 mg/dL (70-110)
[2018-07-17] MEDS: Acetaminophen 325 MG Tablet 650 MG PO (22:58)
[2018-07-18] VITALS (13 sets, daily range): BP systolic 133–158; BP diastolic 36–69; PULSE 69–94; RESP 16–18; TEMP 36.6–36.9; O2SAT 94–99
[2018-07-18] MEDS: 0.9% Normal Saline 1,000 ML 75 ML IV (05:56)
[2018-07-18 06:48] LABS: Absolute Lymphocyte Count 0.95 X10^3/ul (0.83-4.51); Absolute Neutrophil Count 5.2 X10^3/uL (2.0-7.7); Basophil# 0.02 X10^3/uL; Basophil% 0.3 % (0-1); Eosinophil# 0.29 X10^3/uL; Eosinophils% 4.3 % (0-5); Hemoglobin 9.9 g/dl (12.0-15.0); Lymphocyte # 0.95 X10^3/ul (4.0); Mean Corpuscular Hgb 31.8 pg (27.0-32.0); Mean Corpuscular Volume 96.5 fL (81-99); Mean Platelet Vol. 9.2 fl (6.2-12.0); Monocyte# 0.38 X10^3/uL; Monocyte% 5.6 % (0-10); Neutrophil # 5.16 X10^3/uL (2.7-7.7); Neutrophil % 75.7 % (47-70); Platelet Count 209 K/mm3 (150-450); RBC Distribution Width CV 12.9 % (11.6-14.6); RBC Distribution Width SD 43.6 fl (35.1-43.9); Red Blood Count 3.11 M/mm3 (4.2-5.4); White Blood Count 6.8 K/mm3 (4.4-11.0)
[2018-07-18 06:59] LABS: POSITIVE COUNT NO; POSITIVE DIFFERENTIAL NO; POSITIVE MORPHOLOGY NO
[2018-07-18 07:05] LABS: Bedside Glucose 102 mg/dL (70-110)
[2018-07-18 07:10] LABS: Anion Gap 7 (5-15); BUN 5 mg/dL (7-18); BUN/Creat Ratio 7.5 RATIO (10-20); Chloride 108 mmol/L (98-107); Creatinine, Serum 0.66 mg/dL (0.55-1.02); EST Glomerular Filtration Rate 90 mL/min (>60); Est Glom Filt Rate - Afr Amer 109 mL/min (>60); Estimated Creatinine Clearance 35.26 ml/min; Glucose 86 mg/dL (74-106); Potassium 3.4 mmol/L (3.5-5.1); Sodium Level 142 mmol/L (136-145)
[2018-07-18] MEDS: levoFLOXacin IV 250 MG/50 ML BAG 50 MG IV (08:09)
[2018-07-18] MEDS: Labetalol 100 MG Tablet PO ×2 (08:10→21:35)
[2018-07-18] MEDS: amLODIPine 10 MG Tablet PO (08:10)
[2018-07-18] MEDS: Lisinopril 10 MG Tablet PO (08:10)
--- NOTE | 2018-07-18 10:01 | PCM.PN.HOSP ---
Patient Problems: Active and Suspected Problems (Last Reviewed 05/14/18 @ 13:45 by Zoey Wang) Near syncope (Acute) Gastroenteritis (Acute) Rectal bleeding (Acute) Subjective: Patient had bowel movement in the morning and was cleared. It was semisolid but no liquid or bloody. Denies abdominal pain but feels mild discomfort. Tolerated clear liquid in diet advanced to full liquid. Vitals/I&O's: Vital Signs Temp Pulse Resp BP Pulse Ox 97.9 F 88 18 158/69 H 99 07/18/18 08:04 07/18/18 08:04 07/18/18 08:04 07/18/18 08:04 07/18/18 08:04 Oxygen Flow Rate (L/min) 2 Oxygen Delivery Method Room Air Weight: 123 lb 15.984 oz Body Mass Index (BMI) 21.9 Orthostatic Vital Signs Start: 07/16/18 05:32 Freq: q24h Status: Active Protocol: Activity Type Activity Date Activity User E-Sign Co-Sign Detail Recorded Client Recorded Date Recorded By Document 07/18/18 06:26 [email or web address] [id number] 07/18/18 06:26 ZZB 07/18/18 06:26 Orthostatic Vitals Standing -Blood Pressure (90/60-120/80 mm Hg) 142/36 H -Extremity Use Left Arm -Pulse Rate (60-100 beats/min) 82 Sitting -Blood Pressure (90/60-120/80 mm Hg) 133/58 H -Extremity Use Left Arm -Pulse Rate (60-100 beats/min) 75 Lying -Blood Pressure (90/60-120/80 mm Hg) 146/67 H -Extremity Use Left Arm -Pulse Rate (60-100 beats/min) 75 Intake and Output for Last 24 Hours 07/16/18 07/17/18 07/18/18 23:59 23:59 23:59 Intake Total 0695 / 8136 0565 / 8985 83 / 210 Balance 8124 / 81 835 / 3653 / 181 General: Alert, Oriented x3, Cooperative HEENT: Atraumatic, PERRLA, EOMI, Normocephalic Neck: Supple, No JVD, Negative Carotid Bruits Lungs: Clear to auscultation, Normal air movement, No rhonchi, No wheeze, No rales Cardiovascular: Regular rate, Regular Rhythm, Normal S1, Normal S2, No murmurs Abdomen: Bowel Sounds Present, Soft, Non-Distended, Tender - Mild deep tenderness on palpation on left upper quadrant. Extremities: No edema, Capillary Refill Less than 3 Seconds Skin: No rashes, No breakdown Musculoskeletal: No Tenderness to Palpation of Joints or Extremities, Arthritic Changes Neurological: Cranial nerves II-XII grossly intact, Neuro grossly intact Psych/Mental Status: Normal Affect, Appropriate Microbiology Past 72 Hours 07/16/18 12:15 Stool C. difficile DNA Amplification - Final 07/16/18 12:15 Stool Enteric Bacteriology - Final 07/15/18 11:40 Stool Stool Lactoferrin - Final Laboratory Results 07/17/18 11:13: POC Glucose 109 07/17/18 16:01: POC Glucose 71 07/17/18 19:55: Hgb 10.6 L, Hct 32.0 L 07/17/18 21:12: POC Glucose 70 07/18/18 05:47: WBC 6.8, RBC 3.11 L, Hgb 9.9 L, Hct 30.0 L, MCV 96.5, MCH 31.8, MCHC 33.0, RDW 12.9, RDW Differential 43.6, Plt Count 209, MPV 9.2, Immature Gran % (Auto) 0.100, Neut % (Auto) 75.7 H, Lymph % (Auto) 14.0 L, Coal % (Auto) 5.6, Eos % (Auto) 4.3, Baso % (Auto) 0.3, Absolute Neuts (auto) 5.2, Absolute Lymphs (auto) 0.95, Total Counted Not Reportable 07/18/18 05:47: Sodium 142, Potassium 3.4 L, Chloride 108 H, Carbon Dioxide 27.0, Anion Gap 7, BUN 5 L, Creatinine 0.66, Estim Creat Clear Calc 35.26, Est GFR (MDRD) Af Amer 109, Est GFR (MDRD) Non-Af 90, BUN/Creatinine Ratio 7.5 L, Glucose 86, Calcium 8.0 L 07/18/18 07:02: POC Glucose 102 Current Medications Acetaminophen (Tylenol) 650 mg PO Q6H PRN PRN PRN Reason: Mild Pain (scale 0-3)/T>100.7 Last Admin: 07/17/18 22:58 Dose: 650 mg Al Hydroxide/Mg Hydroxide (Mylanta Ii) 30 ml PO Q6H PRN PRN PRN Reason: Gastric burning Amlodipine Besylate (Norvasc) 10 mg PO DAILY [facility] Last Admin: 07/18/18 08:10 Dose: 10 mg Atorvastatin Calcium (Lipitor) 80 mg PO QHS [facility] Last Admin: 07/17/18 21:02 Dose: 80 mg Dextrose (D50w Syringe) 0 gm IV X1 PRN; Protocol PRN Reason: Hypoglycemia Glucagon () 1 mg IM .X1 PRN PRN Reason: Hypoglycemia Pantoprazole Sodium 40 mg/ (Sodium Chloride) 110 mls @ 330 mls/hr IV Q12 [facility] Last Admin: 07/17/18 22:54 Dose: 330 mls/hr Metronidazole (Flagyl) 500 mg in 100 mls @ 100 mls/hr IV Q8 [facility] Last Admin: 07/18/18 06:23 Dose: 100 mls/hr Levofloxacin (Levaquin Iv) 250 mg in 50 mls @ 50 mls/hr IV Q24 [facility] Last Admin: 07/18/18 08:09 Dose: 50 mls/hr Potassium Chloride (Kcl 10meq/100ml) 10 meq in 100 mls @ 100 mls/hr IV BOLUS Q1H [facility] Stop: 07/18/18 11:59 Iron Sucrose 200 mg/ Sodium (Chloride) 110 mls @ 220 mls/hr IV X1 ONE Stop: 07/18/18 10:29 Sodium Chloride () 1,000 mls @ 50 mls/hr IV .Q20H [facility] Insulin Human Lispro (Humalog Kwikpen (Bkc)) 0 unit SQ ACHS [facility]; Protocol Last Admin: 07/18/18 07:34 Dose: Not Given Labetalol HCl (Trandate) 100 mg PO BID [facility] Last Admin: 07/18/18 08:10 Dose: 100 mg Lactobacillus Acidophilus (Acidophilus) 1 tablet PO BID [facility] Last Admin: 07/18/18 08:09 Dose: 1 tablet Lisinopril (Zestril) 10 mg PO DAILY [facility] Last Admin: 07/18/18 08:10 Dose: 10 mg Morphine Sulfate () 1 - 2 mg IV Q4H PRN PRN PRN Reason: SEVERE PAIN (-07/21) Nutritional Formula (Lactose Free) (Ensure Clear) 120 ml PO 4X/DAY [facility] Last Admin: 07/18/18 08:17 Dose: 120 ml Ondansetron HCl (Zofran) 4 mg IV Q8H PRN PRN PRN Reason: NAUSEA Oxycodone HCl (Oxyir) 5 mg PO Q4H PRN PRN PRN Reason: Moderate Pain (pain scale 4-5) Potassium Chloride (K-Dur) 20 meq PO BIDCM [facility] Last Admin: 07/18/18 08:09 Dose: 20 meq Promethazine HCl (Phenergan) 12.5 mg IV Q6H PRN PRN PRN Reason: NAUSEA/VOMITING Sodium Biphosphate/Sodium Phosphate (Fleet Enema) 1 bottle RECTAL X1 ONE Stop: 07/16/18 17:01 Sodium Chloride () 5 - 30 ml IV UD PRN PRN Reason: SALINE FLUSH Last Admin: 07/17/18 06:25 Dose: 10 ml Zolpidem Tartrate (Ambien (Generic)) 5 mg PO QHS PRN PRN PRN Reason: INSOMNIA Medical Necessity - Tobacco Use Smoking Status: Never smoker Assessment/Plan All Active Problems (Last Reviewed 05/14/18 @ 13:45 by Zoey Wang) Near syncope (Acute) Gastroenteritis (Acute) Rectal bleeding (Acute) Skin lesion (Acute) Abnormal stress echocardiogram (Resolved) The patient is a 83 year old F who was brought to ER by EMS for near syncope symptoms after she had nausea, vomiting and diarrhea. Patient woke up fine and walked her dog. And she felt nauseated and stomach upset and went to bathroom where she had vomited and had loose bowel movement. After that she was dizzy lightheaded and does not remember. Her went to the bathroom to check as she was there for a long time. She was lethargic and perhaps syncope, although not clear. [] She was found positive orthostatic hypotension in the ER. Chest x-ray no acute change. EMS EKG sinus rhythm at 58 bpm with supraventricular complexes with left bundle branch block. Similar findings of sinus bradycardia at 52 bpm with left bundle branch block in ER On the floor, as per the nursing staff she had some blood in the stool. 1. Near syncope with from orthostatic hypotension, probably from lower GI blood loss due to ischemic/infectious colitis: Patient is being admitted in PCU. Patient was given IV fluid initially to correct dehydration and she is well hydrated now. Repeat orthostatic blood pressure does not show drop and is negative. Serial troponins are negative. Patient has single-vessel coronary artery disease for which she had a stent in proximal LAD December 2017. Prior to that she had positive stress echo with EF 55% and mildly hypokinetic mid anterior and lateral aspects. She follows Dr. Rangel. 2. Acute anemia, blood loss anemia from lower GI bleed, from antiplatelet agents: Orthostatic hypotension was present in ER but now resolved after IV fluid rehydration. In ED, blood pressure dropped from 128/51, heart rate in supine position to 76-68/37, heart rate 47 on standing. Patient had colonoscopy on 07/16 and was reaching up to 20 cm because of inflamed, erythematous, congested and hemorrhagic mucosa at the mid and distal sigmoid level. Colonoscopy report reviewed and also found nonthrombosed external or internal hemorrhoids, grade 3. EGD was done and shows small hiatus hernia with benign-appearing esophageal stenosis/Schatzki ring at 37 cm. Mild antritis. Normal duodenum. Discussed with Dr. Saucedo and Dr. Severino today and diet advanced to full liquid. Hemoglobin has dropped from 13.6-9.8. Thereafter, hemoglobin is stable between 9-10 g. It seems bleeding has stopped. CBC tomorrow a.m. IV Protonix 40 mg twice daily Hold aspirin and Plavix for now. She had 6 months after stent in LAD in December 2017. 3. Possible ischemic/infectious distal colitis. Patient had temperature 99.6 to 99.8, low-grade fever/possible mild diurnal variation. Patient had mild leukocytosis yesterday which has subsided on IV antibiotics Levaquin and Flagyl that was started yesterday. Stool for leukocytes positive. Enteric bacteriology panel and C. difficile are negative. 4. Diabetes mellitus type 2, controlled: Blood sugar is 146. Accu-Chek before meals and at bedtime and cover with NovoLog sliding scale. Other chronic comorbidities include dyslipidemia, chronic left bundle branch block, hypertension and coronary artery status post stent as mentioned above: Home medication reconciliation done. DVT prophylaxis: Bilateral SCDs. Hold pharmacological prophylaxis until issues of GI bleed is resolved Discharge planning: If H&H is stable, patient tolerates full liquid, can be discharged home tomorrow a.m. 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 Pierce on duration of holding of aspirin and Plavix. She had stents in December 2017. Microbiology Past 72 Hours 07/16/18 12:15 Stool C. difficile DNA Amplification - Final 07/16/18 12:15 Stool Enteric Bacteriology - Final 07/15/18 11:40 Stool Stool Lactoferrin - Final Laboratory Results 07/17/18 16:01: POC Glucose 71 07/17/18 19:55: Hgb 10.6 L, Hct 32.0 L 07/17/18 21:12: POC Glucose 70 07/18/18 05:47: WBC 6.8, RBC 3.11 L, Hgb 9.9 L, Hct 30.0 L, MCV 96.5, MCH 31.8, MCHC 33.0, RDW 12.9, RDW Differential 43.6, Plt Count 209, MPV 9.2, Immature Gran % (Auto) 0.100, Neut % (Auto) 75.7 H, Lymph % (Auto) 14.0 L, Coal % (Auto) 5.6, Eos % (Auto) 4.3, Baso % (Auto) 0.3, Absolute Neuts (auto) 5.2, Absolute Lymphs (auto) 0.95, Total Counted Not Reportable 07/18/18 05:47: Sodium 142, Potassium 3.4 L, Chloride 108 H, Carbon Dioxide 27.0, Anion Gap 7, BUN 5 L, Creatinine 0.66, Estim Creat Clear Calc 35.26, Est GFR (MDRD) Af Amer 109, Est GFR (MDRD) Non-Af 90, BUN/Creatinine Ratio 7.5 L, Glucose 86, Calcium 8.0 L 07/18/18 07:02: POC Glucose 102 07/18/18 11:29: POC Glucose 92 Code Visit Inpatient E&M: 71072 Subs Hosp L3
--- NOTE | 2018-07-18 10:06 | PCM.PN.SRG ---
Patient Problems: Active and Suspected Problems (Last Reviewed 05/14/18 @ 13:45 by Zoey Wang) Near syncope (Acute) Gastroenteritis (Acute) Rectal bleeding (Acute) Subjective: No complaints at this time. Tolerating clear liquids no nausea or vomiting. Abdominal pain has subjectively improved significantly Objective: Abdomen is soft and nontender. - Physical Exam Vital Signs Temp Pulse Resp BP Pulse Ox 97.9 F 88 18 158/69 H 99 07/18/18 08:04 07/18/18 08:04 07/18/18 08:04 07/18/18 08:04 07/18/18 08:04 Oxygen Flow Rate (L/min) 2 Oxygen Delivery Method Room Air Weight: 123 lb 15.984 oz Body Mass Index (BMI) 21.9 Orthostatic Vital Signs Start: 07/16/18 05:32 Freq: q24h Status: Active Protocol: Activity Type Activity Date Activity User E-Sign Co-Sign Detail Recorded Client Recorded Date Recorded By Document 07/18/18 06:26 LESIA [id number] 07/18/18 06:26 ZZB 07/18/18 06:26 Orthostatic Vitals Standing -Blood Pressure (90/60-120/80) 142/36 H -Extremity Use Left Arm -Pulse Rate (60-100) 82 Sitting -Blood Pressure (90/60-120/80) 133/58 H -Extremity Use Left Arm -Pulse Rate (60-100) 75 Lying -Blood Pressure (90/60-120/80) 146/67 H -Extremity Use Left Arm -Pulse Rate (60-100) 75 Intake and Output for Last 24 Hours 07/16/18 07/17/18 07/18/18 23:59 23:59 23:59 Intake Total 8125 / 8125 3654 / 3654 716 / 716 Balance 8125 / 8125 3654 / 3654 716 / 716 Microbiology Past 72 Hours 07/16/18 12:15 C. difficile DNA Amplification - Final Stool 07/16/18 12:15 Enteric Bacteriology - Final Stool 07/15/18 11:40 Stool Lactoferrin - Final Stool Laboratory Tests Past 24 Hrs 07/17/18 07/18/18 07/18/18 19:55 05:47 05:47 WBC 6.8 RBC 3.11 L Hgb 10.6 L 9.9 L Hct 32.0 L 30.0 L MCV 96.5 MCH 31.8 MCHC 33.0 RDW 12.9 RDW Differential 43.6 Plt Count 209 MPV 9.2 Immature Gran % (Auto) 0.100 Neut % (Auto) 75.7 H Lymph % (Auto) 14.0 L [place] % (Auto) 5.6 Eos % (Auto) 4.3 Baso % (Auto) 0.3 Absolute Neuts (auto) 5.2 Absolute Lymphs (auto) 0.95 Total Counted Not Reportable Sodium 142 Potassium 3.4 L Chloride 108 H Carbon Dioxide 27.0 Anion Gap 7 BUN 5 L Creatinine 0.66 Estim Creat Clear Calc 35.26 Est GFR (MDRD) Af Amer 109 Est GFR (MDRD) Non-Af 90 BUN/Creatinine Ratio 7.5 L Glucose 86 Calcium 8.0 L POC Glucose 07/18/18 07/17/18 07/17/18 07:02 21:12 16:01 POC Glucose 102 70 71 07/17/18 11:13 POC Glucose 109 Medical Necessity - Tobacco Use Smoking Status: Never smoker Assessment/Plan All Active Problems (Last Reviewed 05/14/18 @ 13:45 by Zoey Wang) Near syncope (Acute) Gastroenteritis (Acute) Rectal bleeding (Acute) Skin lesion (Acute) Abnormal stress echocardiogram (Resolved) We will advance diet to full liquids. Most likely be able to be discharged on Thursday.
[2018-07-18 11:35] LABS: Bedside Glucose 92 mg/dL (70-110)
[2018-07-18 16:06] LABS: Bedside Glucose 71 mg/dL (70-110)
[2018-07-18 16:35] LABS: Bedside Glucose 85 mg/dL (70-110)
[2018-07-18 22:45] LABS: Bedside Glucose 66 mg/dL (70-110)
[2018-07-18 22:45] LABS: Bedside Glucose 74 mg/dL (70-110)
[2018-07-18 22:46] LABS: Bedside Glucose 181 mg/dL (70-110)
[2018-07-19 03:03] VITALS: PULSE 78
[2018-07-19 03:43] VITALS: BP 135/56; PULSE 75; RESP 16; TEMP 36.9; O2SAT 96
[2018-07-19 06:02] LABS: Absolute Lymphocyte Count 1.06 X10^3/ul (0.83-4.51); Absolute Neutrophil Count 4.6 X10^3/uL (2.0-7.7); Basophil# 0.02 X10^3/uL; Basophil% 0.3 % (0-1); Eosinophil# 0.44 X10^3/uL; Eosinophils% 6.6 % (0-5); Hematocrit 32.2 % (37-47); Hemoglobin 10.7 g/dl (12.0-15.0); Lymphocyte # 1.06 X10^3/ul (4.0); Lymphocyte % 15.9 % (19-41); Mean Corp Hgb Conc 33.2 g/gl (32-36); Mean Corpuscular Hgb 31.2 pg (27.0-32.0); Mean Corpuscular Volume 93.9 fL (81-99); Mean Platelet Vol. 8.9 fl (6.2-12.0); Monocyte# 0.48 X10^3/uL; Monocyte% 7.2 % (0-10); Neutrophil # 4.64 X10^3/uL (2.7-7.7); Neutrophil % 69.7 % (47-70); Platelet Count 201 K/mm3 (150-450); Red Blood Count 3.43 M/mm3 (4.2-5.4); White Blood Count 6.7 K/mm3 (4.4-11.0)
[2018-07-19 06:09] LABS: POSITIVE COUNT NO; POSITIVE DIFFERENTIAL NO; POSITIVE MORPHOLOGY NO
[2018-07-19] MEDS: 0.9% Normal Saline 1,000 ML 50 ML IV (06:12)
--- NOTE | 2018-07-19 06:16 | PN.SURG_ITS ---
Patient Problems: Active and Suspected Problems (Last Reviewed 05/14/18 @ 13:45 by Zoey Wang) Near syncope (Acute) Gastroenteritis (Acute) Rectal bleeding (Acute) Subjective: Pt feeling much better Claims no recent rectal bleeding or stool No abdominal pain at rest - Physical Exam Abdomen: Bowel Sounds Present, Soft, Non Tender, Non-Distended Vital Signs Temp Pulse Resp BP Pulse Ox 98.4 F 75 16 135/56 H 96 07/19/18 03:43 07/19/18 03:43 07/19/18 03:43 07/19/18 03:43 07/19/18 03:43 Oxygen Flow Rate (L/min) 2 Oxygen Delivery Method Room Air Weight: 123 lb 15.984 oz Body Mass Index (BMI) 21.9 Orthostatic Vital Signs Start: 07/16/18 05:32 Freq: q24h Status: Active Protocol: Activity Type Activity Date Activity User E-Sign Co-Sign Detail Recorded Client Recorded Date Recorded By Document 07/18/18 06:26 LESIA [id number] 07/18/18 06:26 [email or web address] 07/18/18 06:26 Orthostatic Vitals Standing -Blood Pressure (90/60-120/80) 142/36 H -Extremity Use Left Arm -Pulse Rate (60-100) 82 Sitting -Blood Pressure (90/60-120/80) 133/58 H -Extremity Use Left Arm -Pulse Rate (60-100) 75 Lying -Blood Pressure (90/60-120/80) 146/67 H -Extremity Use Left Arm -Pulse Rate (60-100) 75 Intake and Output for Last 24 Hours 07/17/18 07/18/18 07/19/18 23:59 23:59 23:59 Intake Total 3654 / 4 2146 / 214 692 / 692 Balance 3654 / 3654 214 / 2145 692 / 692 Microbiology Past 72 Hours 07/16/18 12:15 C. difficile DNA Amplification - Final Stool 07/16/18 12:15 Enteric Bacteriology - Final Stool Laboratory Tests Past 24 Hrs 07/18/18 07/18/18 07/19/18 05:47 05:47 05:35 WBC 6.8 6.7 RBC 3.11 L 3.43 L Hgb 9.9 L 10.7 L Hct 30.0 L 32.2 L MCV 96.5 93.9 MCH 31.8 31.2 MCHC 33.0 33.2 RDW 12.9 13.0 RDW Differential 43.6 45.0 H Plt Count 209 201 MPV 9.2 8.9 Immature Gran % (Auto) 0.100 0.300 Neut % (Auto) 75.7 H 69.7 Lymph % (Auto) 14.[address] [place] % (Auto) 5.6 7.2 Eos % (Auto) 4.3 6.6 H Baso % (Auto) 0.3 0.3 Absolute Neuts (auto) 5.2 4.6 Absolute Lymphs (auto) 0.95 1.06 Total Counted Not Reportable Not Reportable Sodium 142 Potassium 3.4 L Chloride 108 H Carbon Dioxide 27.0 Anion Gap 7 BUN 5 L Creatinine 0.66 Estim Creat Clear Calc 35.26 Est GFR (MDRD) Af Amer 109 Est GFR (MDRD) Non-Af 90 BUN/Creatinine Ratio 7.5 L Glucose 86 Calcium 8.0 L 07/19/18 05:35 WBC RBC Hgb Hct MCV MCH MCHC RDW RDW Differential Plt Count MPV Immature Gran % (Auto) Neut % (Auto) Lymph % (Auto) [place] % (Auto) Eos % (Auto) Baso % (Auto) Absolute Neuts (auto) Absolute Lymphs (auto) Total Counted Sodium Pending Potassium Pending Chloride Pending Carbon Dioxide Pending Anion Gap Pending BUN Pending Creatinine Pending Estim Creat Clear Calc Est GFR (MDRD) Af Amer Pending Est GFR (MDRD) Non-Af Pending BUN/Creatinine Ratio Pending Glucose Pending Calcium Pending POC Glucose 07/18/18 07/18/18 07/18/18 22:39 21:46 21:29 POC Glucose 181 H 74 66 L 07/18/18 07/18/18 07/18/18 16:27 11:29 07:02 POC Glucose 85 92 102 07/18/18 02:04 POC Glucose 71 Medical Necessity - Tobacco Use Smoking Status: Never smoker Assessment/Plan All Active Problems (Last Reviewed 05/14/18 @ 13:45 by Zoey Wang) Near syncope (Acute) Gastroenteritis (Acute) Rectal bleeding (Acute) Skin lesion (Acute) Abnormal stress echocardiogram (Resolved) Labs have stabilized Tolerated full liquids Ready for DC on oral Ab Plan surgical followup in 2 weeks
[2018-07-19 06:22] LABS: Anion Gap 6 (5-15); BUN 5 mg/dL (7-18); BUN/Creat Ratio 7.5 RATIO (10-20); Calcium,Total 8.4 mg/dL (8.5-10.1); Chloride 108 mmol/L (98-107); Creatinine, Serum 0.67 mg/dL (0.55-1.02); EST Glomerular Filtration Rate 90 mL/min (>60); Est Glom Filt Rate - Afr Amer 108 mL/min (>60); Estimated Creatinine Clearance 35.26 ml/min; Glucose 93 mg/dL (74-106); Potassium 4.1 mmol/L (3.5-5.1); Sodium Level 142 mmol/L (136-145)
[2018-07-19 06:56] LABS: Bedside Glucose 87 mg/dL (70-110)
[2018-07-19 07:01] VITALS: PULSE 75
[2018-07-19 08:45] VITALS: BP 146/60; PULSE 79; RESP 16; TEMP 36.9; O2SAT 100
--- NOTE | 2018-07-19 09:39 | DCINST_ITS ---
- Discharge Diagnoses Current Active Problems: Current Active and Chronic Problems (Last Reviewed 05/14/18 @ 13:45 by Zoey Wang) Near syncope (Acute) Gastroenteritis (Acute) Rectal bleeding (Acute) You will use the following diet at home:: No restrictions Discharge Activity: Return to Normal Activity Allergies/Adverse Reactions: Allergies Penicillins Allergy (Unknown, Verified 07/15/18 08:38) Unknown Medications to take at Discharge ascorbate calcium 500 mg tablet 500 mg PO QDAY 10/30/17 aspirin 81 mg tablet,delayed release 81 mg PO QDAY 10/30/17 atorvastatin 80 mg tablet 80 mg PO QDAY 10/30/17 cholecalciferol (vitamin D3) 400 unit capsule 400 unit PO QDAY 10/30/17 Labetalol [Trandate (Beta [place])] 100 mg PO BID 05/18/18 amlodipine 10 mg tablet 10 mg PO QDAY 06/01/18 Clopidogrel Bisulfate [Clopidogrel] 75 mg PO QDAY 07/15/18 Lisinopril [Zestril] 10 mg PO DAILY 07/15/18 Ciprofloxacin [Cipro] 500 mg PO BID #10 tablet 07/19/18 Metronidazole [Flagyl] 500 mg PO TID #15 tablet 07/19/18 Pantoprazole Sodium [Protonix] 40 mg PO DAILY #60 tablet 07/19/18 Potassium Chloride [K-Dur] 20 meq PO BIDCM #30 tablet 07/19/18 The following prescriptions were given: Ciprofloxacin [Cipro] 500 mg PO BID #10 tablet Metronidazole [Flagyl] 500 mg PO TID #15 tablet Pantoprazole Sodium [Protonix] 40 mg PO DAILY #60 tablet Potassium Chloride [K-Dur] 20 meq PO BIDCM #30 tablet Primary Care Physician: Mary Lindo MD [Primary Care Provider] - Please follow up with your Primary Care Physician in: in 3-5 days Test Results: Test results from this visit will be discussed in further detail at your follow- up appointment, if applicable. Please Follow Up With: Juan Saucedo MD When: in 1-2 weeks Proposed Discharge Date: 07/19/18
[2018-07-19] MEDS: Lisinopril 10 MG Tablet PO (10:14)
[2018-07-19] MEDS: amLODIPine 10 MG Tablet PO (10:14)
[2018-07-19] MEDS: levoFLOXacin IV 250 MG/50 ML BAG 50 MG IV (10:14)
[2018-07-19] MEDS: Labetalol 100 MG Tablet PO (10:14)
--- NOTE | 2018-07-19 10:24 | PHA.DC.MC ---
Pharmacy Service has performed discharge medication reconciliation and counseling for this patient. The patient's discharge medication list was reviewed for discrepancies and discrepancies were resolved. The patient was counseled on the following discharge medications and changes in medications for homegoing were reviewed. The Reason for Use, instructions for use, and potential side effects were reviewed for all new medications. The patient's questions regarding all of their medications were answered. The patient was able to verbally demonstrate an understanding of their discharge medications.
[2018-07-19 11:23] VITALS: BP 149/65; PULSE 83; RESP 16; TEMP 36.6; O2SAT 99
--- NOTE | 2018-07-19 13:49 | PCM.DC.SUM ---
Discharge Date and Diagnosis Date of Admission: 07/15/18 Date of Discharge: 07/19/18 - Primary Discharge Diagnosis Acute colitis - Secondary Discharge Diagnosis Chronic Problems (Last Reviewed 05/14/18 @ 13:45 by Zoey Wang) History of coronary artery stent placement (Chronic 12/23/17) [id number] LAD 3.0 x 12 mm Promus Synergy 12/23/17 @ [facility] PTCA and CJ to mid LAD 11/14/2013 @ [facility] Left ventricular systolic dysfunction (Chronic) EF 45% per stress echo 11/01/2013 Nonrheumatic tricuspid valve regurgitation (Chronic) mild per stress echo 11/01/13 Nonrheumatic mitral valve regurgitation (Chronic) mild per stress echo 11/01/13 Pulmonary hypertension (Chronic) RVSP 56 mmhg per stress echo 11/01/13 Diabetes mellitus type II, controlled (Chronic) Hyperlipidemia (Chronic) Left bundle branch block (Chronic) Hypertension (Chronic) History of left heart catheterization (Chronic) LHC, followed by PTCA and CJ to mid LAD 11/14/[address] Rendon @ [facility] Atherosclerotic heart disease of [place] coronary artery without angina pectoris (Chronic) Stent to LAD 12/2017 Hospital Course and Treatment Imaging Results: Clinical Impression(s) from Imaging Studies Chest X-Ray 07/15/18 08:51 IMPRESSION: Degenerative changes, as described above. No demonstrated acute cardiopulmonary process. Electronically Signed: Graham Orozco MD at 9:14 EDT Tel , Service support , Abdomen/Pelvis CT 07/17/18 06:00 IMPRESSION: CT findings suggest colitis of the descending colon and splenic flexure. Bilateral pleural effusions. Free pelvic fluid. Electronically Signed: Franc Kimble MD at 6:13 EDT Tel , Service support , Summary of Care Provided: The patient is a 83 year old F admitted with nausea vomiting and diarrhea and near syncopal episode; CT of the abdomen obtained on admission demonstrated evidence of acute colitis 1. Near syncopal episode attributed to orthostatic hypotension treated symptomatically 2. Acute colitis ischemic versus infectious stool for leukocyte came back positive enteric bacteriology was unremarkable CT was negative patient was treated with Levaquin and Flagyl 3. Anemia secondary to acute blood loss anemia from lower GI bleed. Patient underwent colonoscopy which found nonthrombosed external and internal hemorrhoids grade 3. EGD demonstrated hiatal hernia with benign-appearing esophageal stenosis/Schatzk ring and mild antral gastritis patient was discharged on PPI 4. Diabetes mellitus type 2 5. Dyslipidemia 6. Essential hypertension 7. CAD with previous stent placement in proximal LAD in December 2017 Discharge Activity: Return to Normal Activity Home Medications: Medications to take at Discharge ascorbate calcium 500 mg tablet 500 mg PO QDAY 10/30/17 aspirin 81 mg tablet,delayed release 81 mg PO QDAY 10/30/17 atorvastatin 80 mg tablet 80 mg PO QDAY 10/30/17 cholecalciferol (vitamin D3) 400 unit capsule 400 unit PO QDAY 10/30/17 Labetalol [Trandate (Beta Sommer)] 100 mg PO BID 05/18/18 amlodipine 10 mg tablet 10 mg PO QDAY 06/01/18 Clopidogrel Bisulfate [Clopidogrel] 75 mg PO QDAY 07/15/18 Lisinopril [Zestril] 10 mg PO DAILY 07/15/18 Ciprofloxacin [Cipro] 500 mg PO BID #10 tablet 07/19/18 Metronidazole [Flagyl] 500 mg PO TID #15 tablet 07/19/18 Pantoprazole Sodium [Protonix] 40 mg PO DAILY #60 tablet 07/19/18 Potassium Chloride [K-Dur] 20 meq PO BIDCM #30 tablet 07/19/18 Following Prescrptions Were Given to Patient: Ciprofloxacin [Cipro] 500 mg PO BID #10 tablet Metronidazole [Flagyl] 500 mg PO TID #15 tablet Pantoprazole Sodium [Protonix] 40 mg PO DAILY #60 tablet Potassium Chloride [K-Dur] 20 meq PO BIDCM #30 tablet Primary Care Physician: Mary Lindo MD [Primary Care Provider] - Please follow up with your Primary Care Physician in: in 3-5 days Please Follow Up With: Juan Saucedo MD When: in 1-2 weeks Disposition: Home Minutes spent on discharge:: 35 Patient Condition:: Stable Medical Necessity - Tobacco Use Smoking Status: Never smoker Meaningful Use Info Meaningful Use Diagnoses (Choose all that apply): None applicable Code Visit Inpatient E&M: 13985 Disch Hosp - Physical Exam General: Alert HEENT: Atraumatic Lungs: Clear to auscultation Cardiovascular: Regular rate Neurological: Neuro grossly intact Psych/Mental Status: Normal Affect Vital Signs Temp Pulse Resp BP Pulse Ox 97.9 F 83 16 149/65 H 99 07/19/18 11:23 07/19/18 11:23 07/19/18 11:23 07/19/18 11:23 07/19/18 11:23 Oxygen Flow Rate (L/min) 2 Oxygen Delivery Method Room Air Weight: 56.245 kg Body Mass Index (BMI) 21.9 Intake and Output for Last 24 Hours 07/17/18 07/18/18 07/19/18 23:59 23:59 23:59 Intake Total 3654 / 3654 2146 / 2146 692 / 692 Balance 3654 / 3654 2146 / 214 692 / 692 Microbiology Past 72 Hours 07/16/18 12:15 C. difficile DNA Amplification - Final Stool 07/16/18 12:15 Enteric Bacteriology - Final Stool Laboratory Tests Past 24 Hrs 07/19/18 07/19/18 05:35 05:35 WBC 6.7 RBC 3.43 L Hgb 10.7 L Hct 32.2 L MCV 93.9 MCH 31.2 MCHC 33.2 RDW 13.0 RDW Differential 45.0 H Plt Count 201 MPV 8.9 Immature Gran % (Auto) 0.300 Neut % (Auto) 69.7 Lymph % (Auto) 15.9 L [place] % (Auto) 7.2 Eos % (Auto) 6.6 H Baso % (Auto) 0.3 Absolute Neuts (auto) 4.6 Absolute Lymphs (auto) 1.06 Total Counted Not Reportable Sodium 142 Potassium 4.1 Chloride 108 H Carbon Dioxide 28.0 Anion Gap 6 BUN 5 L Creatinine 0.67 Estim Creat Clear Calc 35.26 Est GFR (MDRD) Af Amer 108 Est GFR (MDRD) Non-Af 90 BUN/Creatinine Ratio 7.5 L Glucose 93 Calcium 8.4 L POC Glucose 07/19/18 07/18/18 07/18/18 06:53 22:39 21:46 POC Glucose 87 181 H 74 07/18/18 07/18/18 07/18/18 21:29 16:27 02:04 POC Glucose 66 L 85 71
--- NOTE | 2018-07-19 13:54 | DS.PCM_ITS ---
Discharge Date and Diagnosis Date of Admission: 07/15/18 Date of Discharge: 07/19/18 - Primary Discharge Diagnosis Acute colitis - Secondary Discharge Diagnosis Chronic Problems (Last Reviewed 05/14/18 @ 13:45 by Zoey Wang) History of coronary artery stent placement (Chronic 12/23/17) [id number] LAD 3.0 x 12 mm Promus Synergy 12/23/17 @ [facility] PTCA and CJ to mid LAD 11/14/2013 @ [facility] Left ventricular systolic dysfunction (Chronic) EF 45% per stress echo 11/01/2013 Nonrheumatic tricuspid valve regurgitation (Chronic) mild per stress echo 11/01/13 Nonrheumatic mitral valve regurgitation (Chronic) mild per stress echo 11/01/13 Pulmonary hypertension (Chronic) RVSP 56 mmhg per stress echo 11/01/13 Diabetes mellitus type II, controlled (Chronic) Hyperlipidemia (Chronic) Left bundle branch block (Chronic) Hypertension (Chronic) History of left heart catheterization (Chronic) LHC, followed by PTCA and CJ to mid LAD 11/14/[address] Rendon @ [facility] Atherosclerotic heart disease of [place] coronary artery without angina pectoris (Chronic) Stent to LAD 12/2017 Hospital Course and Treatment Imaging Results: Clinical Impression(s) from Imaging Studies Chest X-Ray 07/15/18 08:51 IMPRESSION: Degenerative changes, as described above. No demonstrated acute cardiopulmonary process. Electronically Signed: Graham Orozco MD at 9:14 EDT Tel , Service support , Abdomen/Pelvis CT 07/17/18 06:00 IMPRESSION: CT findings suggest colitis of the descending colon and splenic flexure. Bilateral pleural effusions. Free pelvic fluid. Electronically Signed: Franc Kimble MD at 6:13 EDT Tel , Service support , Summary of Care Provided: The patient is a 83 year old F admitted with nausea vomiting and diarrhea and near syncopal episode; CT of the abdomen obtained on admission demonstrated evidence of acute colitis 1. Near syncopal episode attributed to orthostatic hypotension treated symptomatically 2. Acute colitis ischemic versus infectious stool for leukocyte came back positive enteric bacteriology was unremarkable CT was negative patient was treated with Levaquin and Flagyl 3. Anemia secondary to acute blood loss anemia from lower GI bleed. Patient underwent colonoscopy which found nonthrombosed external and internal hemorrhoids grade 3. EGD demonstrated hiatal hernia with benign-appearing esophageal stenosis/Schatzk ring and mild antral gastritis patient was discharged on PPI 4. Diabetes mellitus type 2 5. Dyslipidemia 6. Essential hypertension 7. CAD with previous stent placement in proximal LAD in December 2017 Discharge Activity: Return to Normal Activity Home Medications: Medications to take at Discharge ascorbate calcium 500 mg tablet 500 mg PO QDAY 10/30/17 aspirin 81 mg tablet,delayed release 81 mg PO QDAY 10/30/17 atorvastatin 80 mg tablet 80 mg PO QDAY 10/30/17 cholecalciferol (vitamin D3) 400 unit capsule 400 unit PO QDAY 10/30/17 Labetalol [Trandate (Beta Sommer)] 100 mg PO BID 05/18/18 amlodipine 10 mg tablet 10 mg PO QDAY 06/01/18 Clopidogrel Bisulfate [Clopidogrel] 75 mg PO QDAY 07/15/18 Lisinopril [Zestril] 10 mg PO DAILY 07/15/18 Ciprofloxacin [Cipro] 500 mg PO BID #10 tablet 07/19/18 Metronidazole [Flagyl] 500 mg PO TID #15 tablet 07/19/18 Pantoprazole Sodium [Protonix] 40 mg PO DAILY #60 tablet 07/19/18 Potassium Chloride [K-Dur] 20 meq PO BIDCM #30 tablet 07/19/18 Following Prescrptions Were Given to Patient: Ciprofloxacin [Cipro] 500 mg PO BID #10 tablet Metronidazole [Flagyl] 500 mg PO TID #15 tablet Pantoprazole Sodium [Protonix] 40 mg PO DAILY #60 tablet Potassium Chloride [K-Dur] 20 meq PO BIDCM #30 tablet Primary Care Physician: Mary Lindo MD [Primary Care Provider] - Please follow up with your Primary Care Physician in: in 3-5 days Please Follow Up With: Juan Saucedo MD When: in 1-2 weeks Disposition: Home Minutes spent on discharge:: 35 Patient Condition:: Stable Medical Necessity - Tobacco Use Smoking Status: Never smoker Meaningful Use Info Meaningful Use Diagnoses (Choose all that apply): None applicable Code Visit Inpatient E&M: 52612 Disch Hosp - Physical Exam General: Alert HEENT: Atraumatic Lungs: Clear to auscultation Cardiovascular: Regular rate Neurological: Neuro grossly intact Psych/Mental Status: Normal Affect Vital Signs Temp Pulse Resp BP Pulse Ox 97.9 F 83 16 149/65 H 99 07/19/18 11:23 07/19/18 11:23 07/19/18 11:23 07/19/18 11:23 07/19/18 11:23 Oxygen Flow Rate (L/min) 2 Oxygen Delivery Method Room Air Weight: 56.245 kg Body Mass Index (BMI) 21.9 Intake and Output for Last 24 Hours 07/17/18 07/18/18 07/19/18 23:59 23:59 23:59 Intake Total 3654 / 3654 2146 / 2146 692 / 692 Balance 3654 / 3654 2146 / 214 692 / 692 Microbiology Past 72 Hours 07/16/18 12:15 C. difficile DNA Amplification - Final Stool 07/16/18 12:15 Enteric Bacteriology - Final Stool Laboratory Tests Past 24 Hrs 07/19/18 07/19/18 05:35 05:35 WBC 6.7 RBC 3.43 L Hgb 10.7 L Hct 32.2 L MCV 93.9 MCH 31.2 MCHC 33.2 RDW 13.0 RDW Differential 45.0 H Plt Count 201 MPV 8.9 Immature Gran % (Auto) 0.300 Neut % (Auto) 69.7 Lymph % (Auto) 15.9 L [place] % (Auto) 7.2 Eos % (Auto) 6.6 H Baso % (Auto) 0.3 Absolute Neuts (auto) 4.6 Absolute Lymphs (auto) 1.06 Total Counted Not Reportable Sodium 142 Potassium 4.1 Chloride 108 H Carbon Dioxide 28.0 Anion Gap 6 BUN 5 L Creatinine 0.67 Estim Creat Clear Calc 35.26 Est GFR (MDRD) Af Amer 108 Est GFR (MDRD) Non-Af 90 BUN/Creatinine Ratio 7.5 L Glucose 93 Calcium 8.4 L POC Glucose 07/19/18 07/18/18 07/18/18 06:53 22:39 21:46 POC Glucose 87 181 H 74 07/18/18 07/18/18 07/18/18 21:29 16:27 02:04 POC Glucose 66 L 85 71
--- NOTE | 2018-07-20 14:22 | CASEMGMT ---
MIKE YOUNG DC Phone call DC DATE: 07/19/18 DC Disposition: Home LACE STRATA 3 Intro role of CM to patient via phone. she states she has no questions re: instructions, f/u or prescriptions. States she has f/u appointment with Dr. Saucedo scheduled. No suggestions for patient care improvements. Pt stated her care in hospital was excellent. MIKE YOUNG thanked her for using [facility]. Yaw BROOKS RN [facility]
== END 2018-07-19 12:00 | disposition home or self-care (01) | DRG 394 ==
LOC: ED 10:19 → PCU 10:22
PROVIDERS: Surgery; Admitting Provider Internal Medicine; Emergency Provider Emergency Medicine; Family Provider Internal Medicine; PCP Internal Medicine; Visit Provider Internal Medicine
PROC: 0DJD8ZZ Inspection of Lower Intestinal Tract, Via Natural or Artificial Opening Endoscopic (ICD-10-PCS; CPT 45378; principal; 2018-07-16 17:25)
DX: K55.039 Acute (reversible) ischemia of large intestine, extent unspecified (principal); D62 Acute posthemorrhagic anemia; A09 Infectious gastroenteritis and colitis, unspecified; I95.1 Orthostatic hypotension; E11.9 Type 2 diabetes mellitus without complications; E78.5 Hyperlipidemia, unspecified; I44.7 Left bundle-branch block, unspecified; I10 Essential (primary) hypertension; I25.10 Atherosclerotic heart disease of native coronary artery without angina pectoris; Z95.5 Presence of coronary angioplasty implant and graft; K44.9 Diaphragmatic hernia without obstruction or gangrene; K29.70 Gastritis, unspecified, without bleeding; K22.2 Esophageal obstruction; R55 Syncope and collapse; I27.20 Pulmonary hypertension, unspecified; K64.2 Third degree hemorrhoids; K64.4 Residual hemorrhoidal skin tags
CPT/HCPCS: 36415; 71045; 74177; 80048; 80053; 80061; 81001; 82274; 82962; 83630; 83735; 84443; 84484; 85014; 85018; 85025; 87493; 87506; 88305; 88342; 93005; 97802; 99285; J1756; J7030; Q9967; A4216; J2405

== ENCOUNTER 2018-09-14 06:23 | Day surgery (SDC) | payer MEDICARE, SELFPAY ==
[2017-12-23 11:21] VITALS: BMI 21.6
[2018-09-01 08:08] VITALS: BMI 21.1
[2018-09-14] VITALS (7 sets, daily range): BP systolic 95–135; BP diastolic 46–57; PULSE 58–65; RESP 14–16; TEMP 36.3–36.6; O2SAT 97–100; BMI 21.2
[2018-09-14 07:06] LABS: Bedside Glucose 75 mg/dL (70-110)
--- NOTE | 2018-09-14 07:30 | COLBX_PTH ---
PATIENT: DAVID GRAY LOC: EN U#:[id number] AGE/SX: 83/F ROOM: RE09/14/[address]: Dr. Juan Saucedo MD : 1935 BED: DIS: 09/14/2018 SPEC #: [id number] RECD: 09/14/18 09:52 STATUS: BRIAN ISABEL #: [id number] MARIA ALEJANDRA: 09/14/18 07:[address]: Juan Saucedo DEPT: SURGICAL PATHOLOGY RECD BY: Fredrick Gomez ENTERED: 09/14/18 11:58 SP TYPE: COLON BX OTHR DR: Dr. Mary Lindo MD Tissues: SPLENIC FLEXURE Procedures: Surgery Specimen Level IV HEADER OPERATION: Colonoscopy (MAC) PRE-OP DIAGNOSIS: Ischemic colitis TISSUE SUBMITTED: Splenic flexure polyp MICROSCOPIC DIAGNOSIS Splenic flexure polyp, biopsy: Tubular adenoma. Fragments of fecal material. SJ:landry 09/15/18 COMMENT Case has been reviewed in consultation with Dr. Jenkins who concurs with the above diagnosis. IDC:AM MICROSCOPIC DESCRIPTION Slides are reviewed. GROSS DESCRIPTION Received in fixative is one container labeled with the patient's name and designated splenic flexure polyp. The specimen consists of multiple irregular fragments of light cornelius soft tissue mixed with fecal material that in aggregate measure 0.5 x 0.4 x 0.1 cm. The specimen is totally submitted in one cassette. / SJ:landry 09/14/18 TC:1 CPT: 61434
--- NOTE | 2018-09-14 08:04 | OP.ENDO_ITS ---
Patient Name: Joann Andrade Procedure Date: 09/14/2018 7:32 AM Date of : 1935 Age: 83 Procedure: Colonoscopy Indications: Suspected diverticulitis Providers: Juan Saucedo MD Referring MD: Juan Saucedo MD Medicines: See the Anesthesia note for documentation of the administered medications Patient Profile: Last Colonoscopy: several years ago. Complications: No immediate complications. Procedure: Pre-Anesthesia Assessment: - Prior to the procedure, a History and Physical was performed, and patient medications and allergies were reviewed. The patient's tolerance of previous anesthesia was also reviewed. The risks and benefits of the procedure and the sedation options and risks were discussed with the patient. All questions were answered, and informed consent was obtained. Prior Anticoagulants: The patient has taken no previous anticoagulant or antiplatelet agents. ASA Grade Assessment: II - A patient with mild systemic disease. After reviewing the risks and benefits, the patient was deemed in satisfactory condition to undergo the procedure. After I obtained informed consent, the scope was passed under direct vision. Throughout the procedure, the patient's blood pressure, pulse, and oxygen saturations were monitored continuously. The Colonoscope was introduced through the anus and advanced to the cecum, identified by appendiceal orifice and ileocecal valve. The colonoscopy was performed with moderate difficulty due to a tortuous colon. Successful completion of the procedure was aided by changing the patient to a supine position. The patient tolerated the procedure well. The quality of the bowel preparation was good. The ileocecal valve was photographed. Scope In: 7:40:30 AM Scope Withdrawal Time 0 hours 7 minutes 42 seconds Scope Out: 7:58:26 AM Total Procedure Duration Time 0 hours 17 minutes 56 seconds Findings: Hemorrhoids were found on perianal exam. A 8 mm polyp was found in the splenic flexure. The polyp was sessile. The polyp was removed with a hot snare. Resection and retrieval were complete. Multiple diverticula were found in the sigmoid colon and descending colon. Impression: - Hemorrhoids found on perianal exam. - One 8 mm polyp at the splenic flexure, removed with a hot snare. Resected and retrieved. - Diverticulosis in the sigmoid colon and in the descending colon. Recommendation: - Discharge patient to home. - Resume previous diet. - Telephone my office for pathology results in 1 week. - Continue present medications. - Repeat colonoscopy in 5 years for surveillance. Procedure Code(s): --- Professional --- 71374, Colonoscopy, flexible; with removal of tumor(s), polyp(s), or other lesion(s) by snare technique Diagnosis Code(s): --- Professional --- K64.9, Unspecified hemorrhoids D12.3, Benign neoplasm of transverse colon (hepatic flexure or splenic flexure) K57.30, Diverticulosis of large intestine without perforation or abscess without bleeding CPT copyright 2017 [employer]. All rights reserved. The codes documented in this report are preliminary and upon apron trimmer review may be revised to meet current compliance requirements. Juan Saucedo MD 09/14/2018 8:04:42 AM This report has been signed electronically. Number of Addenda: 0 Note Initiated On: 09/14/2018 7:32 AM
== END 2018-09-14 08:52 | disposition home or self-care (01) ==
LOC: EN 06:24 → AC 06:26
PROVIDERS: Family Provider Internal Medicine; PCP Internal Medicine; Referring Provider Surgery; Visit Provider Surgery
PROC: 0DJD8ZZ Inspection of Lower Intestinal Tract, Via Natural or Artificial Opening Endoscopic (ICD-10-PCS; CPT 45378; principal; 2018-09-14 07:25)
DX: D12.3 Benign neoplasm of transverse colon (principal); K55.9 Vascular disorder of intestine, unspecified; K64.9 Unspecified hemorrhoids; K57.30 Diverticulosis of large intestine without perforation or abscess without bleeding; Z79.82 Long term (current) use of aspirin; E11.9 Type 2 diabetes mellitus without complications; E78.5 Hyperlipidemia, unspecified; I25.10 Atherosclerotic heart disease of native coronary artery without angina pectoris; I44.7 Left bundle-branch block, unspecified; Z95.5 Presence of coronary angioplasty implant and graft; Z87.891 Personal history of nicotine dependence
CPT/HCPCS: 45385; 82962; 88305; J7120

== ENCOUNTER 2019-04-26 07:59 | Emergency (ER) | payer MEDICARE, SELFPAY ==
[2019-04-01 11:56] VITALS: BMI 21.6
[2019-04-01 12:17] VITALS: BMI 21.0
[2019-04-26 08:00] VITALS: BP 105/46; PULSE 75; RESP 16; TEMP 37.1; O2SAT 97; BMI 20.9
--- NOTE | 2019-04-26 08:14 | ED.DCSUM_ITS ---
History of Present Illness Chief Complaint: General Illness Detail of Chief Complaint: Decreased appetite and not feeling well Informant: Patient Onset: Days - Onset Thursday Context: Sudden Onset Timing: Continuous Quality: Generalized illness Location: Nothing specific Current Severity: Mild Maximum Severity: Moderate Worsened by: Nothing per patient Relieved by: Nothing Associated Symptoms: Patient reported spinning sensation with change in position this morning Narrative: Patient is an elderly woman who presents with generalized illness. She denies fever, chills or night sweats. She denies nausea, vomiting but does report diarrhea. She has history of colitis. She states when she has a flare of her colitis she has pain. She presently has no pain. She denies ocular, visual or auditory symptoms. She denies upper respiratory symptoms. She denies chest discomfort. She denies dysuria, frequency, urgency or hematuria. She denies rash. She denies neurologic symptoms. Prior similar symptoms: No Recent Illness/Hospitalization: No - Past Medical History (1) Ischemic colitis Status: Acute (2) Atherosclerotic heart disease of [place] coronary artery without angina pectoris Status: Chronic Comment: Stent to LAD 12/2017 (3) Diabetes mellitus type II, controlled Status: Chronic (4) Hyperlipidemia Status: Chronic (5) Hypertension Status: Chronic (6) Left ventricular systolic dysfunction Status: Chronic Comment: EF 45% per stress echo 11/01/2013 (7) Nonrheumatic mitral valve regurgitation Status: Chronic Comment: mild per stress echo 11/01/13 (8) Nonrheumatic tricuspid valve regurgitation Status: Chronic Comment: mild per stress echo 11/01/13 (9) Pulmonary hypertension Status: Chronic Comment: RVSP 56 mmhg per stress echo 11/01/13 Past Medical History - Allergies and Home Meds Allergies/Adverse Reactions: Allergies Penicillins Allergy (Intermediate, Verified 04/26/19 08:03) Hives Primary Care Physician: Mary Lnido MD [Primary Care Provider] - Prior records reviewed: Yes Surgical History: angioplasty, hysterectomy Lives: Spouse/ Significant Other Smoking Status: Former smoker Alcohol: None Review of Systems General: Reports: Malaise. Denies: Chills, Fever, Subjective, Sweats, Weight loss, - Eyes: Denies: Visual changes - bilaterally, Blurred Vision - bilaterally, Diplopia ENT: Denies: Bilateral ear pain, Rhinorrhea, Sore throat Cardiovascular: Denies: Chest pain, Palpitations, Heart racing Respiratory: Denies: Dyspnea, Cough, Dyspnea on exertion Gastrointestinal: Denies: Abdominal pain, Nausea, Vomiting, Diarrhea, Melena, Hematochezia Genitourinary: Denies: Dysuria, Hematuria, Frequency Musculoskeletal: Denies: Back pain, Extremity Pain Skin: Denies: Rash, Wounds Neurological: Reports: Weakness, - - Vertigo with supine position. Symptoms are paroxysmal.. Denies: Headache, Parasthesia, Numbness Endocrine: Denies: Polyuria, Polydipsia Hematologic: Denies: Easy bruising, Easy bleeding Physical Exam Vital Signs/Narrative: Vital Signs Temp Pulse Resp BP Pulse Ox 04/26/19 08:00 98.7 F 75 16 105/46 L 97 Inital Vital Signs reviewed: Yes General: Well nourished, Well developed, No Acute Distress Head: Normocephalic, Atraumatic Eyes: Perrl, EOMI. Negative for: Pale conjunctiva, Scleral icterus ENT: Moist mucous membranes, No rhinorrhea, TM's clear Neck: Supple, Nontender Cardiovascular: Regular rate, Regular rhythm, No murmurs, Normal S1, Normal S2 Respiratory: No distress, CTA bilaterally, Chest nontender Abdomen: Soft, Nontender, Nondistended, Normal bowel sounds, No masses Back: Nontender, Normal Inspection. Negative for: CVA tenderness Extremities: Nontender, No edema Skin: Normal color, No rash Neurological: Alert, Oriented x3, Cranial nerves II-XII grossly intact, Normal Strength, Normal Sensation, Normal DTR, Normal Gait, - - Frantz-Hallpike maneuver negative. The Eye askew test is negative. The HINT test is negative. Psychological: Normal affect, Normal Mood Diagnostic/Tx/Re-eval Laboratory Results 04/26/19 04/26/19 04/26/19 08:40 08:40 08:40 WBC 6.7 RBC 3.84 L Hgb 12.3 Hct 36.8 L MCV 95.8 MCH 32.0 MCHC 33.4 RDW Std Deviation 42.5 RDW Coeff of Kendrick 12.2 Plt Count 187 MPV 9.2 Immature Gran % (Auto) 0.400 Neut % (Auto) 83.5 H Lymph % (Auto) 8.7 L [place] % (Auto) 6.1 Eos % (Auto) 1.0 Baso % (Auto) 0.3 Absolute Neuts (auto) 5.6 Absolute Lymphs (auto) 0.58 L Differential Comment COMMENT Sodium 135 L Potassium 4.3 Chloride 102 Carbon Dioxide 30.0 Anion Gap 3 L BUN 15 Creatinine 1.11 H Estim Creat Clear Calc 31.77 Est GFR (MDRD) Af Amer 60 Est GFR (MDRD) Non-Af 50 L BUN/Creatinine Ratio 13.5 Glucose 103 Calcium 9.1 Urine Color Yellow Urine Clarity Clear Urine pH 5.0 Ur Specific [place] 1.025 Urine Protein 100 H Urine Glucose (UA) Normal Urine Ketones 15 H Urine Occult Blood 10 H Urine Nitrite Positive H Urine Bilirubin 1 H Urine Urobilinogen 4 H Ur Leukocyte Esterase 25 H Urine RBC 0 SEEN Urine WBC 0-5 SEEN Ur Squamous Epith Cells 0-5 SEEN Urine Bacteria 0 SEEN Hyaline Casts 0-5 SEEN Fine Granular Casts 0-5 SEEN Urine Mucus 1+ - Medical Decision Making Patient with generalized symptoms will obtain metabolic and infectious work-up. Since she is an elderly woman will obtain UA to evaluate for asymptomatic urinary tract infection. CBC is unremarkable. Likely panel with a slight elevation in creatinine. UA is positive for leukoesterase, blood and nitrites. Micro reveals 0-5 WBCs and 0-5 RBCs with no epithelial cells. UA is suggestive of an infection. Will treat with Macrobid. ED Disposition - Plan for ED Patient: Disposition: Home or Assisted Living Diagnosis: Acute cystitis Instructions: Urinary Tract Infections in Women Prescriptions: Nitrofurantoin Macrocrystals [Macrobid] 100 mg PO Q12 #10 cap Transmission Status: Pending to [facility] Referrals: Mary Lindo MD [Primary Care Provider] - 3-5 Days if not improving
[2019-04-26 08:20] VITALS: BP 105/46; PULSE 75; RESP 16; TEMP 37.1; O2SAT 97
[2019-04-26 08:48] LABS: Bacteria 0 SEEN /hpf (None Seen); Red Blood Cells-Urine 0 SEEN /hpf (0-5)
[2019-04-26 08:53] LABS: Color, Urine Yellow (Yellow); Glucose, Dipstick Normal (Normal); Ketone-Dipstick 15 mg/dl (Negative); Leukocyte Esterase-Dipstick 25 /ul (Negative); Nitrite-Dipstick Positive (Negative); Occult Blood-Urine 10 /ul (Negative); Protein-Dipstick 100 mg/dl (Negative); Specific Gravity, Urine 1.025 (1.002-1.030); Urine Clarity Clear (Clear); Urine Urobilinogen 4 mg/dl (Normal)
[2019-04-26 08:54] LABS: Urine Bilirubin Dipstick 1 mg/dL (Negative)
[2019-04-26 08:58] LABS: Absolute Lymphocyte Count 0.58 X10^3/uL (0.83-4.51); Absolute Neutrophil Count 5.6 X10^3/uL (2.0-7.7); Basophil# 0.02 X10^3/uL; Basophil% 0.3 % (0-1); Eosinophil# 0.07 X10^3/uL; Hematocrit 36.8 % (37-47); Hemoglobin 12.3 g/dL (12.0-15.0); Lymphocyte # 0.58 X10^3/ul (4.0); Lymphocyte % 8.7 % (19-41); Mean Corp Hgb Conc 33.4 g/dL (32-36); Mean Corpuscular Volume 95.8 fL (81-99); Mean Platelet Vol. 9.2 fl (6.2-12.0); Monocyte# 0.41 X10^3/uL; Monocyte% 6.1 % (0-10); Neutrophil # 5.58 X10^3/uL (2.7-7.7); Neutrophil % 83.5 % (47-70); POSITIVE DIFFERENTIAL YES; Platelet Count 187 K/mm3 (150-450); RBC Distribution Width CV 12.2 % (11.6-14.6); RBC Distribution Width SD 42.5 fl (35.1-43.9); Red Blood Count 3.84 M/mm3 (4.2-5.4); White Blood Count 6.7 K/mm3 (4.4-11.0)
[2019-04-26 09:00] LABS: Fine Granular Cast- Urine 0-5 SEEN /lpf (0-5); Hyaline Cast 0-5 SEEN /lpf (0-5)
[2019-04-26 09:01] LABS: Anion Gap 3 (5-15); BUN 15 mg/dL (7-18); BUN/Creat Ratio 13.5 RATIO (10-20); Calcium,Total 9.1 mg/dL (8.5-10.1); Chloride 102 mmol/L (98-107); Creatinine, Serum 1.11 mg/dL (0.55-1.02); EST Glomerular Filtration Rate 50 mL/min (>60); Est Glom Filt Rate - Afr Amer 60 mL/min (>60); Estimated Creatinine Clearance 31.77 ml/min; Glucose 103 mg/dL (74-106); Mucous, Urine 1+ /hpf (<or=2+); Potassium 4.3 mmol/L (3.5-5.1); Sodium Level 135 mmol/L (136-145); Squamous Epithelial Cells - UA 0-5 SEEN /hpf (5-10)
[2019-04-26 09:02] LABS: White Blood Cells 0-5 SEEN /hpf (0-5)
[2019-04-26 09:08] LABS: Differential Indicated SCAN CRITERIA MET; POSITIVE COUNT NO; POSITIVE MORPHOLOGY NO
[2019-04-26] MEDS: Nitrofurantoin Macrocrystals 100 MG Capsule PO (10:02)
[2019-04-26 10:06] VITALS: BP 119/53; PULSE 65; RESP 18; O2SAT 96
[2019-04-26 10:26] VITALS: BP 119/53; PULSE 65; RESP 18; TEMP 36.9; O2SAT 96
== END 2019-04-26 10:28 | disposition home or self-care (01) ==
PROVIDERS: Emergency Provider Emergency Medicine; Family Provider Internal Medicine; PCP Internal Medicine
DX: N30.00 Acute cystitis without hematuria (principal); I25.10 Atherosclerotic heart disease of native coronary artery without angina pectoris; E11.9 Type 2 diabetes mellitus without complications; E78.5 Hyperlipidemia, unspecified; I10 Essential (primary) hypertension; I27.20 Pulmonary hypertension, unspecified; Z87.19 Personal history of other diseases of the digestive system; Z95.5 Presence of coronary angioplasty implant and graft; Z79.82 Long term (current) use of aspirin; Z79.899 Other long term (current) drug therapy; Z87.891 Personal history of nicotine dependence
CPT/HCPCS: 80048; 81001; 85025; 87086; 99284; J7030

== ENCOUNTER → 2019-10-25 15:32 | Outpatient (CLI) | payer MEDICARE, SELFPAY ==
[2019-04-01 11:56] VITALS: BMI 21.6
[2019-05-24 14:23] VITALS: BMI 21.2
[2019-10-25 17:22] LABS: Absolute Lymphocyte Count 1.25 X10^3/uL (0.83-4.51); Basophil# 0.06 X10^3/uL; Eosinophil# 0.14 X10^3/uL; Eosinophils% 2.4 % (0-5); Hematocrit 37.7 % (37-47); Hemoglobin 12.6 g/dL (12.0-15.0); Lymphocyte # 1.25 X10^3/ul (4.0); Lymphocyte % 21.6 % (19-41); Mean Corp Hgb Conc 33.4 g/dL (32-36); Mean Corpuscular Hgb 32.2 pg (27.0-32.0); Mean Corpuscular Volume 96.4 fL (81-99); Mean Platelet Vol. 9.2 fl (6.2-12.0); Monocyte# 0.32 X10^3/uL; Monocyte% 5.5 % (0-10); NRBC Flagged by Analyzer 0 % (0-5); Neutrophil % 69.2 % (47-70); Platelet Count 273 K/mm3 (150-450); RBC Distribution Width CV 12.3 % (11.6-14.6); RBC Distribution Width SD 43.1 fl (35.1-43.9); Red Blood Count 3.91 M/mm3 (4.2-5.4); White Blood Count 5.8 K/mm3 (4.4-11.0)
[2019-10-25 17:27] LABS: ALB/GLOB Ratio 1.3 RATIO (0.9-2.4); AST(SGOT) 21 U/L (15-37); Alanine Aminotransfer ALT/SGPT 32 U/L (13-56); Alkaline Phosphatase 76 U/L (45-117); Anion Gap 3 (5-15); BUN 17 mg/dL (7-18); BUN/Creat Ratio 19.1 RATIO (10-20); Chloride 104 mmol/L (98-107); Creatinine, Serum 0.89 mg/dL (0.55-1.02); EST Glomerular Filtration Rate 64 mL/min (>60); Est Glom Filt Rate - Afr Amer 78 mL/min (>60); Globulin 3.1 g/dL (2.2-4.2); Glucose 95 mg/dL (74-106); Potassium 4.5 mmol/L (3.5-5.1); Protein, Total 7.1 g/dL (6.4-8.2); Sodium Level 139 mmol/L (136-145); Thyroid Stim Hormone (TSH) 3.02 uIU/mL (0.358-3.74)
[2019-10-25 17:37] LABS: Vitamin B12 770 pg/mL (211-911); Vitamin D,25 Hydroxy 34.2 ng/mL (29.95-100.01)
[2019-10-27 02:56] LABS: Rapid Plasmin Reagin (RPR) NONREACTIVE (NONREACTIVE)
== END ==
PROVIDERS: Visit Provider Family Medicine Geriatric Medicine
DX: G30.9 Alzheimer's disease, unspecified (principal); E55.9 Vitamin D deficiency, unspecified; I10 Essential (primary) hypertension
CPT/HCPCS: 36415; 80053; 82306; 82607; 82746; 84443; 85025; 86592

== ENCOUNTER → 2019-12-15 08:51 | Outpatient (CLI) | payer MEDICARE, SELFPAY ==
[2019-04-01 11:56] VITALS: BMI 21.6
[2019-11-17 14:06] VITALS: BMI 21.9
--- NOTE | 2019-12-15 08:55 | ECHOD_ITS ---
Reason For Study: PULMONARY HYPERTENSION Procedure This was a 2D Doppler, Color Flow transthoracic echocardiogram. Exam performed in department. Left Ventricle Normal size and thickness. The estimated ejection fraction is 65 %. Stage 1 diastolic dysfunction. No regional wall motion abnormalities noted. Right Ventricle Normal size and thickness. Normal systolic function. Atria Normal left atrium. Normal right atrium. Normal atrial septum. Mitral Valve The mitral valve is structurally normal. No prolapse or stenosis seen. Mild (1+) mitral valve insufficiency. Tricuspid Valve Normal tricuspid valve. Mild (1+) tricuspid valve insufficiency. Right ventricular systolic pressure estimated to be 39 mmHg. Mild pulmonary hypertension. Aortic Valve Trisinus/trileaflet aortic valve. Aortic sclerosis, no stenosis. Pulmonic Valve Normal pulmonic valve. Great Vessels Normal aortic root. Normal arch. Normal inferior vena cava. Inferior vena cava collapse with sniff. Pericardium/Pleural No pericardial effusion. MMode/2D Measurements & Calculations LVIDd: 4.2 cm IVSd: 0.80 cm Ao root diam: 2.9 cm LVIDs: 2.9 cm LVPWd: 0.90 cm RVDd: 3.3 cm FS: 31.7 % LAV(MOD-bp): 37.7 ml LVAd ap4: 27.4 cm2 SV(MOD-sp4): 49.8 ml LAV(MOD-bp) Indexed: 24.0 ml/m2 EDV(MOD-sp4): 79.4 ml LAV(MOD-sp2): 40.4 ml EDV(sp4-el): 82.7 ml LAV(MOD-sp4): 35.3 ml LVAs ap4: 14.4 cm2 ESV(MOD-sp4): 29.7 ml ESV(sp4-el): 29.5 ml EF(MOD-sp4): 62.7 % EF(sp4-el): 64.4 % SV(sp4-el): 53.3 ml LA A4 area: 15.0 cm2 LA dimension(2D): 3.2 cm RA A4 area: 10.3 cm2 Time Measurements MV dec time: 0.29 sec Doppler Measurements & Calculations MV E max vazquez: 93.9 cm/sec Lat Peak E' Vazquez: 7.4 cm/sec Med Peak E' Vazquez: 6.3 cm/sec MV A max vazquez: 82.6 cm/sec E/E' lat: 12.7 E/E' med: 14.9 MV E/A: 1.1 Ao V2 max: 137.5 cm/sec LV V1 max: 105.0 cm/sec PA V2 max: 85.1 cm/sec Ao max P.6 mmHg LV V1 max P.4 mmHg TR max vazquez: 291.3 cm/sec TR max P.0 mmHg Interpretation Summary The estimated ejection fraction is 65 %. Stage 1 diastolic dysfunction. Mild (1+) mitral valve insufficiency. Mild (1+) tricuspid valve insufficiency. Right ventricular systolic pressure estimated to be 39 mmHg. Mild pulmonary hypertension. Compared to echo report dated 11/18/2017, no appreciable changes noted. Ordering Physician: David Rangel Referring Physician: TWAN OKEEFE Performed By: Yoko Chow RDCS
== END ==
PROVIDERS: PCP Family Medicine Geriatric Medicine; Referring Provider Internal Medicine Cardiovascular Disease; Visit Provider Internal Medicine Cardiovascular Disease
DX: R55 Syncope and collapse (principal)
CPT/HCPCS: 93306

== ENCOUNTER → 2020-04-17 08:29 | Outpatient (CLI) | payer MEDICARE, SELFPAY ==
[2019-04-01 11:56] VITALS: BMI 21.6
[2020-03-15 11:22] VITALS: BMI 21.6
[2020-04-17 09:31] LABS: AST(SGOT) 18 U/L (15-37); Alanine Aminotransfer ALT/SGPT 22 U/L (13-56); Albumin, Serum 3.6 g/dL (3.2-5.0); Alkaline Phosphatase 65 U/L (45-117); Bilirubin, Direct 0.16 mg/dL (0.00-0.30); Cholesterol 164 mg/dL (200); Globulin 3.2 g/dL (2.2-4.2); High Density Lipoprotein 65 mg/dL; Protein, Total 6.8 g/dL (6.4-8.2); Triglycerides 86 mg/dL; Very Low Density Lipoprotein 17 mg/dL (5-40)
== END ==
PROVIDERS: PCP Family Medicine Geriatric Medicine; Referring Provider Internal Medicine Cardiovascular Disease; Visit Provider Internal Medicine Cardiovascular Disease
DX: I25.10 Atherosclerotic heart disease of native coronary artery without angina pectoris (principal); E78.5 Hyperlipidemia, unspecified
CPT/HCPCS: 36415; 80061; 80076

== ENCOUNTER → 2020-04-24 11:34 | Outpatient (CLI) | payer MEDICARE, SELFPAY ==
[2019-04-01 11:56] VITALS: BMI 21.6
[2020-03-15 11:22] VITALS: BMI 21.6
[2020-04-24 12:12] LABS: Absolute Lymphocyte Count 1.02 X10^3/uL (0.83-4.51); Absolute Neutrophil Count 3.5 X10^3/uL (2.0-7.7); Basophil# 0.03 X10^3/uL; Basophil% 0.6 % (0-1); Eosinophil# 0.13 X10^3/uL; Eosinophils% 2.6 % (0-5); Hematocrit 35.1 % (37-47); Hemoglobin 11.5 g/dL (12.0-15.0); Lymphocyte # 1.02 X10^3/ul (4.0); Lymphocyte % 20.5 % (19-41); Mean Corp Hgb Conc 32.8 g/dL (32-36); Mean Corpuscular Hgb 32.5 pg (27.0-32.0); Mean Corpuscular Volume 99.2 fL (81-99); Mean Platelet Vol. 9.3 fl (6.2-12.0); Monocyte# 0.29 X10^3/uL; Monocyte% 5.8 % (0-10); NRBC Flagged by Analyzer 0 % (0-5); Neutrophil # 3.49 X10^3/uL (2.7-7.7); Neutrophil % 70.3 % (47-70); Platelet Count 247 K/mm3 (150-450); RBC Distribution Width CV 12.6 % (11.6-14.6); RBC Distribution Width SD 45.7 fl (35.1-43.9); Red Blood Count 3.54 M/mm3 (4.2-5.4)
[2020-04-24 12:27] LABS: Vitamin D,25 Hydroxy 55.3 ng/mL
[2020-04-24 12:37] LABS: ALB/GLOB Ratio 1.1 RATIO (0.9-2.4); AST(SGOT) 14 U/L (15-37); Alanine Aminotransfer ALT/SGPT 21 U/L (13-56); Albumin, Serum 3.6 g/dL (3.2-5.0); Alkaline Phosphatase 64 U/L (45-117); Anion Gap 3 (5-15); BUN 21 mg/dL (7-18); BUN/Creat Ratio 22.1 RATIO (10-20); Calcium,Total 9.1 mg/dL (8.5-10.1); Chloride 106 mmol/L (98-107); Cholesterol 175 mg/dL (200); Creatinine, Serum 0.95 mg/dL (0.55-1.02); EST Glomerular Filtration Rate 59 mL/min (>60); Est Glom Filt Rate - Afr Amer 72 mL/min (>60); Globulin 3.2 g/dL (2.2-4.2); Glucose 89 mg/dL (74-106); High Density Lipoprotein 60 mg/dL; Potassium 4.6 mmol/L (3.5-5.1); Protein, Total 6.8 g/dL (6.4-8.2); Sodium Level 138 mmol/L (136-145); Thyroid Stim Hormone (TSH) 3.12 uIU/mL (0.358-3.74); Triglycerides 81 mg/dL; Very Low Density Lipoprotein 16 mg/dL (5-40)
== END ==
PROVIDERS: PCP Family Medicine Geriatric Medicine; Visit Provider Family Medicine Geriatric Medicine
DX: E55.9 Vitamin D deficiency, unspecified (principal); E78.5 Hyperlipidemia, unspecified; I10 Essential (primary) hypertension
CPT/HCPCS: 36415; 80053; 80061; 82306; 84443; 85025

== ENCOUNTER → 2020-05-28 10:40 | Outpatient (CLI) | payer MEDICARE, SELFPAY ==
[2019-04-01 11:56] VITALS: BMI 21.6
[2020-03-15 11:22] VITALS: BMI 21.6
[2020-05-28 11:13] LABS: Hematocrit 35.2 % (37-47); Hemoglobin 11.8 g/dL (12.0-15.0)
== END ==
PROVIDERS: PCP Family Medicine Geriatric Medicine; Referring Provider Family Medicine Geriatric Medicine; Visit Provider Family Medicine Geriatric Medicine
DX: D64.9 Anemia, unspecified (principal)
CPT/HCPCS: 36415; 85014; 85018

== ENCOUNTER → 2020-10-29 09:21 | Outpatient (CLI) | payer MEDICARE, SELFPAY ==
[2019-04-01 11:56] VITALS: BMI 21.6
[2020-09-04 08:05] VITALS: BMI 22.1
[2020-10-29 10:05] LABS: Absolute Lymphocyte Count 0.95 X10^3/uL (0.83-4.51); Absolute Neutrophil Count 4.6 X10^3/uL (2.0-7.7); Basophil# 0.04 X10^3/uL; Basophil% 0.7 % (0-1); Eosinophil# 0.01 X10^3/uL; Eosinophils% 0.2 % (0-5); Hematocrit 37.4 % (37-47); Hemoglobin 12.3 g/dL (12.0-15.0); Lymphocyte # 0.95 X10^3/ul (4.0); Lymphocyte % 15.8 % (19-41); Mean Corp Hgb Conc 32.9 g/dL (32-36); Mean Corpuscular Hgb 31.9 pg (27.0-32.0); Mean Corpuscular Volume 97.1 fL (81-99); Monocyte# 0.39 X10^3/uL; Monocyte% 6.5 % (0-10); NRBC Flagged by Analyzer 0 % (0-5); Neutrophil % 76.5 % (47-70); Platelet Count 255 K/mm3 (150-450); RBC Distribution Width CV 12.2 % (11.6-14.6); RBC Distribution Width SD 43.9 fl (35.1-43.9); Red Blood Count 3.85 M/mm3 (4.2-5.4)
[2020-10-29 10:42] LABS: Vitamin D,25 Hydroxy 51.5 ng/mL
[2020-10-29 10:50] LABS: ALB/GLOB Ratio 1.1 RATIO (0.9-2.4); AST(SGOT) 18 U/L (15-37); Alanine Aminotransfer ALT/SGPT 21 U/L (13-56); Albumin, Serum 3.5 g/dL (3.2-5.0); Alkaline Phosphatase 77 U/L (45-117); Anion Gap 3 (5-15); BUN 21 mg/dL (7-18); BUN/Creat Ratio 20.2 RATIO (10-20); Calcium,Total 9.1 mg/dL (8.5-10.1); Chloride 106 mmol/L (98-107); Cholesterol 185 mg/dL (200); Creatinine, Serum 1.04 mg/dL (0.55-1.02); EST Glomerular Filtration Rate 54 mL/min (>60); Est Glom Filt Rate - Afr Amer 65 mL/min (>60); Globulin 3.3 g/dL (2.2-4.2); Glucose 85 mg/dL (74-106); High Density Lipoprotein 62 mg/dL; Potassium 4.6 mmol/L (3.5-5.1); Protein, Total 6.8 g/dL (6.4-8.2); Sodium Level 140 mmol/L (136-145); Thyroid Stim Hormone (TSH) 3.44 uIU/mL (0.358-3.74); Triglycerides 71 mg/dL; Very Low Density Lipoprotein 14 mg/dL (5-40)
== END ==
PROVIDERS: PCP Family Medicine Geriatric Medicine; Visit Provider Family Medicine Geriatric Medicine
DX: E78.5 Hyperlipidemia, unspecified (principal); I10 Essential (primary) hypertension; E55.9 Vitamin D deficiency, unspecified
CPT/HCPCS: 36415; 80053; 80061; 82306; 84443; 85025

== ENCOUNTER 2020-11-23 10:54 | Outpatient (RCR) | payer MEDICARE, SELFPAY ==
[2019-04-01 11:56] VITALS: BMI 21.6
[2020-09-04 08:05] VITALS: BMI 22.1
== END 2020-11-23 23:59 ==
LOC: IMMUN 10:54
PROVIDERS: PCP Family Medicine Geriatric Medicine; Referring Provider Family Medicine; Visit Provider Family Medicine
DX: Z23 Encounter for immunization (principal)
CPT/HCPCS: 0011A; 0012A

== ENCOUNTER → 2020-11-28 15:15 | Outpatient (CLI) | payer MEDICARE, SELFPAY ==
[2019-04-01 11:56] VITALS: BMI 21.6
[2020-09-04 08:05] VITALS: BMI 22.1
--- NOTE | 2020-11-28 15:20 | RAD_ITS ---
HISTORY: ABDOMINAL PAIN ADDITIONAL HISTORY: None. COMPARISON: CT 07/17/2018 EXAMINATION/TECHNIQUE: XR Abdomen W/ Decub and/or Erect Views Number of images including paperwork: 2 FINDINGS: FREE AIR: None detected. BOWEL GAS PATTERN: Nonobstructive. Moderate to large amount of colonic stool. CALCIFICATIONS: No definite urinary tract calculi. ORGANS: No evidence of organomegaly. SOFT TISSUES: Unremarkable. BONES: No acute skeletal findings. Degenerative changes. DEVICES: None. RAD/Abd Inc Decub and/or Erect IMPRESSION: No acute abdominal abnormality is radiographically apparent. Moderate to large amount of colonic stool. at 0350 Reported and signed by: Julisa Shields MD Electronically Signed: Julisa Shields MD at 3:50 EST Tel , Service support ,
== END ==
PROVIDERS: PCP Family Medicine Geriatric Medicine; Referring Provider Family Medicine Geriatric Medicine; Visit Provider Family Medicine Geriatric Medicine
DX: R10.9 Unspecified abdominal pain (principal)
CPT/HCPCS: 74019

== ENCOUNTER → 2021-04-29 09:44 | Outpatient (CLI) | payer MEDICARE, SELFPAY ==
[2019-04-01 11:56] VITALS: BMI 21.6
[2021-04-02 09:26] VITALS: BMI 21.4
[2021-04-29 12:40] LABS: Absolute Lymphocyte Count 0.93 X10^3/uL (0.83-4.51); Absolute Neutrophil Count 4.2 X10^3/uL (2.0-7.7); Basophil# 0.03 X10^3/uL; Basophil% 0.5 % (0-1); Hematocrit 36.6 % (37-47); Hemoglobin 12.1 g/dL (12.0-15.0); Lymphocyte # 0.93 X10^3/ul (0.83-4.51); Lymphocyte % 16.8 % (19-41); Mean Corp Hgb Conc 33.1 g/dL (32-36); Mean Corpuscular Hgb 32.4 pg (27.0-32.0); Mean Corpuscular Volume 97.9 fL (81-99); Mean Platelet Vol. 9.6 fl (6.2-12.0); Monocyte# 0.32 X10^3/uL; Monocyte% 5.8 % (0-10); NRBC Flagged by Analyzer 0 % (0-5); Neutrophil # 4.23 X10^3/uL (2.7-7.7); Neutrophil % 76.7 % (47-70); Platelet Count 259 K/mm3 (150-450); RBC Distribution Width CV 12.5 % (11.6-14.6); RBC Distribution Width SD 45.1 fl (35.1-43.9); Red Blood Count 3.74 M/mm3 (4.2-5.4); White Blood Count 5.5 K/mm3 (4.4-11.0)
[2021-04-29 13:05] LABS: ALB/GLOB Ratio 1.3 RATIO (0.9-2.4); AST(SGOT) 26 U/L (15-37); Alanine Aminotransfer ALT/SGPT 31 U/L (13-56); Albumin, Serum 3.7 g/dL (3.2-5.0); Alkaline Phosphatase 77 U/L (45-117); Anion Gap 3 (5-15); BUN 14 mg/dL (7-18); BUN/Creat Ratio 15.6 RATIO (10-20); Calcium,Total 8.8 mg/dL (8.5-10.1); Chloride 106 mmol/L (98-107); Cholesterol 134 mg/dL (200); EST Glomerular Filtration Rate 63 mL/min (>60); Est Glom Filt Rate - Afr Amer 77 mL/min (>60); Globulin 2.8 g/dL (2.2-4.2); Glucose 90 mg/dL (74-106); High Density Lipoprotein 55 mg/dL; Potassium 4.4 mmol/L (3.5-5.1); Protein, Total 6.5 g/dL (6.4-8.2); Sodium Level 138 mmol/L (136-145); Thyroid Stim Hormone (TSH) 3.09 uIU/mL (0.358-3.74); Triglycerides 78 mg/dL; Very Low Density Lipoprotein 16 mg/dL (5-40)
== END ==
PROVIDERS: PCP Family Medicine Geriatric Medicine; Visit Provider Family Medicine Geriatric Medicine
DX: E78.5 Hyperlipidemia, unspecified (principal); I10 Essential (primary) hypertension; E55.9 Vitamin D deficiency, unspecified
CPT/HCPCS: 36415; 80053; 80061; 82306; 84443; 85025

== ENCOUNTER → 2021-08-29 15:37 | Outpatient (CLI) | payer MEDICARE, SELFPAY ==
[2019-04-01 11:56] VITALS: BMI 21.6
--- NOTE | 2021-08-29 15:40 | RAD_ITS ---
STUDY: X-RAY - LUMBOSACRAL SPINE REASON FOR EXAM: Female, 86 years old. LOW BACK PAIN TECHNIQUE: 7 view(s) of the lumbosacral spine were obtained. COMPARISON: None FINDINGS: Normal lumbar lordosis. There is no substantial scoliosis. No demonstrated fracture. Vertebral body heights are well-maintained. 7 mm anterolisthesis at L4-5, minimal increase in flexion, 8 mm. Minimal decrease in extension to 6 mm. Alignment is otherwise normal. Disc space narrowing is mild at L2-3 and L5-S1, moderate to severe at L3-4, moderate at L4-5. Sclerotic endplate changes at L2-3 and L4-5. Facet arthrosis at L4-5 and L5-S1. Normal visualized soft tissue structures. RAD/L/S Spine Comp/w Bending Views IMPRESSION: 1. L4-5 anterolisthesis with minimal motion in flexion and extension. 2. Multilevel degenerative disc changes. Electronically Signed: Tiarra Alcantara MD at 16:18 EST Tel , Service support ,
== END ==
PROVIDERS: PCP Family Medicine Geriatric Medicine; Referring Provider Family Medicine Geriatric Medicine; Visit Provider Family Medicine Geriatric Medicine
DX: M54.50 Low back pain, unspecified (principal); N39.0 Urinary tract infection, site not specified
CPT/HCPCS: 72114; 87086; 87088

== ENCOUNTER 2021-10-31 09:52 | Outpatient (CLI) | payer MEDICARE, SELFPAY ==
[2019-04-01 11:56] VITALS: BMI 21.6
[2021-10-31 12:41] LABS: Absolute Lymphocyte Count 0.87 X10^3/uL (0.83-4.51); Absolute Neutrophil Count 5.7 X10^3/uL (2.0-7.7); Basophil# 0.05 X10^3/uL; Basophil% 0.7 % (0-1); Hematocrit 36.2 % (37-47); Hemoglobin 11.9 g/dL (12.0-15.0); Lymphocyte # 0.87 X10^3/ul (0.83-4.51); Lymphocyte % 12.4 % (19-41); Mean Corp Hgb Conc 32.9 g/dL (32-36); Mean Corpuscular Hgb 32.3 pg (27.0-32.0); Mean Corpuscular Volume 98.4 fL (81-99); Mean Platelet Vol. 9.4 fl (6.2-12.0); Monocyte# 0.39 X10^3/uL; Monocyte% 5.6 % (0-10); NRBC Flagged by Analyzer 0 % (0-5); Neutrophil # 5.69 X10^3/uL (2.7-7.7); Platelet Count 273 K/mm3 (150-450); RBC Distribution Width SD 46.5 fl (35.1-43.9); Red Blood Count 3.68 M/mm3 (4.2-5.4)
[2021-10-31 12:52] LABS: Vitamin D,25 Hydroxy 48.3 ng/mL
[2021-10-31 13:00] LABS: ALB/GLOB Ratio 1.1 RATIO (0.9-2.4); AST(SGOT) 20 U/L (15-37); Alanine Aminotransfer ALT/SGPT 30 U/L (13-56); Albumin, Serum 3.5 g/dL (3.2-5.0); Alkaline Phosphatase 73 U/L (45-117); Anion Gap 4 (5-15); BUN 15 mg/dL (7-18); BUN/Creat Ratio 15.5 RATIO (10-20); Calcium,Total 8.9 mg/dL (8.5-10.1); Chloride 104 mmol/L (98-107); Cholesterol 136 mg/dL (200); Creatinine, Serum 0.97 mg/dL (0.55-1.02); EST Glomerular Filtration Rate 58 mL/min (>60); Est Glom Filt Rate - Afr Amer 70 mL/min (>60); Globulin 3.1 g/dL (2.2-4.2); Glucose 99 mg/dL (74-106); High Density Lipoprotein 64 mg/dL; Potassium 4.8 mmol/L (3.5-5.1); Protein, Total 6.6 g/dL (6.4-8.2); Sodium Level 139 mmol/L (136-145); Thyroid Stim Hormone (TSH) 3.21 uIU/mL (0.358-3.74); Triglycerides 77 mg/dL; Very Low Density Lipoprotein 15 mg/dL (5-40)
== END 2021-10-31 23:59 | disposition short-term general hospital (02) ==
PROVIDERS: PCP Family Medicine Geriatric Medicine; Visit Provider Family Medicine Geriatric Medicine
DX: E55.9 Vitamin D deficiency, unspecified (principal); E78.5 Hyperlipidemia, unspecified; I10 Essential (primary) hypertension
CPT/HCPCS: 36415; 80053; 80061; 82306; 84443; 85025

== ENCOUNTER → 2022-05-01 | Outpatient (CLI) | payer MEDICARE, SELFPAY ==
[2019-04-01 11:56] VITALS: BMI 21.6
[2022-05-01 12:34] LABS: Absolute Lymphocyte Count 0.99 X10^3/uL (0.83-4.51); Absolute Neutrophil Count 5.5 X10^3/uL (2.0-7.7); Basophil# 0.04 X10^3/uL; Basophil% 0.6 % (0-1); Hematocrit 34.4 % (37-47); Hemoglobin 11.4 g/dL (12.0-15.0); Lymphocyte # 0.99 X10^3/ul (0.83-4.51); Lymphocyte % 14.3 % (19-41); Mean Corp Hgb Conc 33.1 g/dL (32-36); Mean Corpuscular Hgb 32.5 pg (27.0-32.0); Mean Platelet Vol. 9.5 fl (6.2-12.0); Monocyte% 5.8 % (0-10); NRBC Flagged by Analyzer 0 % (0-5); Neutrophil # 5.48 X10^3/uL (2.7-7.7); Platelet Count 258 K/mm3 (150-450); RBC Distribution Width CV 12.8 % (11.6-14.6); RBC Distribution Width SD 45.8 fl (35.1-43.9); Red Blood Count 3.51 M/mm3 (4.2-5.4); White Blood Count 6.9 K/mm3 (4.4-11.0)
[2022-05-01 12:48] LABS: Vitamin D,25 Hydroxy 67.4 ng/mL
[2022-05-01 13:14] LABS: ALB/GLOB Ratio 1.2 RATIO (0.9-2.4); AST(SGOT) 25 U/L (15-37); Alanine Aminotransfer ALT/SGPT 30 U/L (13-56); Albumin, Serum 3.5 g/dL (3.2-5.0); Alkaline Phosphatase 77 U/L (45-117); Anion Gap 4 (5-15); BUN 17 mg/dL (7-18); BUN/Creat Ratio 18.4 RATIO (10-20); Chloride 106 mmol/L (98-107); Cholesterol 126 mg/dL (200); Creatinine, Serum 0.93 mg/dL (0.55-1.02); EST Glomerular Filtration Rate 61 mL/min (>60); Est Glom Filt Rate - Afr Amer 74 mL/min (>60); Glucose 96 mg/dL (74-106); High Density Lipoprotein 59 mg/dL; Potassium 4.3 mmol/L (3.5-5.1); Protein, Total 6.5 g/dL (6.4-8.2); Sodium Level 139 mmol/L (136-145); Thyroid Stim Hormone (TSH) 3.15 uIU/mL (0.358-3.74); Triglycerides 71 mg/dL; Very Low Density Lipoprotein 14 mg/dL (5-40)
== END | disposition home or self-care (01) ==
LOC: POLAB3 10:11
PROVIDERS: PCP Family Medicine Geriatric Medicine; Visit Provider Family Medicine Geriatric Medicine
DX: I10 Essential (primary) hypertension (principal); E55.9 Vitamin D deficiency, unspecified; E78.5 Hyperlipidemia, unspecified
CPT/HCPCS: 36415; 80053; 80061; 82306; 84443; 85025

== ENCOUNTER → 2022-11-06 | Outpatient (CLI) | payer MEDICARE, SELFPAY ==
[2019-04-01 11:56] VITALS: BMI 21.6
[2022-11-06 11:21] LABS: Absolute Lymphocyte Count 0.97 X10^3/uL (0.83-4.51); Absolute Neutrophil Count 4.4 X10^3/uL (2.0-7.7); Basophil# 0.04 X10^3/uL; Basophil% 0.7 % (0-1); Eosinophils% 1.7 % (0-5); Hematocrit 38.4 % (37-47); Hemoglobin 12.6 g/dL (12.0-15.0); Lymphocyte # 0.97 X10^3/ul (0.83-4.51); Lymphocyte % 16.6 % (19-41); Mean Corp Hgb Conc 32.8 g/dL (32-36); Mean Corpuscular Volume 97.5 fL (81-99); Mean Platelet Vol. 9.6 fl (6.2-12.0); Monocyte# 0.32 X10^3/uL; Monocyte% 5.5 % (0-10); NRBC Flagged by Analyzer 0 % (0-5); Neutrophil % 75.2 % (47-70); Platelet Count 248 K/mm3 (150-450); RBC Distribution Width CV 12.5 % (11.6-14.6); RBC Distribution Width SD 45.2 fl (35.1-43.9); Red Blood Count 3.94 M/mm3 (4.2-5.4); White Blood Count 5.9 K/mm3 (4.4-11.0)
[2022-11-06 11:39] LABS: Vitamin D,25 Hydroxy 58.5 ng/mL
[2022-11-06 11:52] LABS: ALB/GLOB Ratio 1.1 RATIO (0.9-2.4); AST(SGOT) 23 U/L (15-37); Alanine Aminotransfer ALT/SGPT 41 U/L (13-56); Albumin, Serum 3.6 g/dL (3.2-5.0); Alkaline Phosphatase 92 U/L (45-117); Anion Gap 7 (5-15); BUN 18 mg/dL (7-18); BUN/Creat Ratio 14.9 RATIO (10-20); Calcium,Total 9.5 mg/dL (8.5-10.1); Chloride 102 mmol/L (98-107); Creatinine, Serum 1.21 mg/dL (0.55-1.02); EST Glomerular Filtration Rate 45 mL/min (>60); Est Glom Filt Rate - Afr Amer 54 mL/min (>60); Globulin 3.2 g/dL (2.2-4.2); Glucose 165 mg/dL (74-106); Potassium 4.2 mmol/L (3.5-5.1); Protein, Total 6.8 g/dL (6.4-8.2); Sodium Level 140 mmol/L (136-145); Thyroid Stim Hormone (TSH) 4.58 uIU/mL (0.358-3.74)
[2022-11-07 11:24] LABS: Cholesterol 134 mg/dL (200); High Density Lipoprotein 61 mg/dL; Triglycerides 100 mg/dL; Very Low Density Lipoprotein 20 mg/dL (5-40)
== END | disposition home or self-care (01) ==
LOC: POLAB3 09:07
PROVIDERS: PCP Family Medicine Geriatric Medicine; Visit Provider Family Medicine Geriatric Medicine
DX: E55.9 Vitamin D deficiency, unspecified (principal); I10 Essential (primary) hypertension; E78.5 Hyperlipidemia, unspecified
CPT/HCPCS: 36415; 80053; 80061; 82306; 84443; 85025

== ENCOUNTER → 2022-12-24 | Outpatient (CLI) | payer MEDICARE, SELFPAY ==
[2019-04-01 11:56] VITALS: BMI 21.6
[2022-12-24 13:36] LABS: Albumin, Serum 3.5 g/dL (3.2-5.0); BUN 15 mg/dL (7-18); Calcium,Total 9.3 mg/dL (8.5-10.1); Chloride 105 mmol/L (98-107); EST Glomerular Filtration Rate 56 mL/min (>60); Est Glom Filt Rate - Afr Amer 67 mL/min (>60); Glucose 120 mg/dL (74-106); Potassium 4.1 mmol/L (3.5-5.1); Sodium Level 142 mmol/L (136-145); Thyroid Stim Hormone (TSH) 2.29 uIU/mL (0.358-3.74)
== END | disposition home or self-care (01) ==
PROVIDERS: PCP Family Medicine Geriatric Medicine; Visit Provider Internal Medicine Nephrology
DX: E03.9 Hypothyroidism, unspecified (principal); N17.9 Acute kidney failure, unspecified; N18.32 Chronic kidney disease, stage 3b
CPT/HCPCS: 36415; 80069; 84443

== ENCOUNTER → 2023-02-11 | Outpatient (CLI) | payer MEDICARE, SELFPAY ==
[2019-04-01 11:56] VITALS: BMI 21.6
[2023-02-11 12:27] LABS: Albumin, Serum 3.6 g/dL (3.2-5.0); BUN 16 mg/dL (7-18); BUN/Creat Ratio 16.5 RATIO (10-20); Calcium,Total 9.1 mg/dL (8.5-10.1); Chloride 104 mmol/L (98-107); Creatinine, Serum 0.97 mg/dL (0.55-1.02); EST Glomerular Filtration Rate 58 mL/min (>60); Est Glom Filt Rate - Afr Amer 70 mL/min (>60); Glucose 108 mg/dL (74-106); Phosphorus 3.5 mg/dL (2.5-4.9); Potassium 4.5 mmol/L (3.5-5.1); Sodium Level 138 mmol/L (136-145)
== END | disposition home or self-care (01) ==
LOC: LAB 11:14
PROVIDERS: PCP Family Medicine Geriatric Medicine; Referring Provider Internal Medicine Nephrology; Visit Provider Internal Medicine Nephrology
DX: N18.32 Chronic kidney disease, stage 3b (principal)
CPT/HCPCS: 36415; 80069

== ENCOUNTER → 2023-05-07 | Outpatient (CLI) | payer MEDICARE, SELFPAY ==
[2019-04-01 11:56] VITALS: BMI 21.6
[2023-05-07 11:57] LABS: Absolute Lymphocyte Count 0.86 X10^3/uL (0.83-4.51); Absolute Neutrophil Count 4.8 X10^3/uL (2.0-7.7); Basophil# 0.06 X10^3/uL; Hematocrit 37.1 % (37-47); Hemoglobin 12.4 g/dL (12.0-15.0); Lymphocyte # 0.86 X10^3/ul (0.83-4.51); Lymphocyte % 13.9 % (19-41); Mean Corp Hgb Conc 33.4 g/dL (32-36); Mean Corpuscular Hgb 32.7 pg (27.0-32.0); Mean Corpuscular Volume 97.9 fL (81-99); Mean Platelet Vol. 9.4 fl (6.2-12.0); Monocyte# 0.33 X10^3/uL; Monocyte% 5.3 % (0-10); NRBC Flagged by Analyzer 0 % (0-5); Neutrophil # 4.83 X10^3/uL (2.7-7.7); Neutrophil % 78.3 % (47-70); Platelet Count 279 K/mm3 (150-450); RBC Distribution Width CV 12.5 % (11.6-14.6); RBC Distribution Width SD 45.1 fl (35.1-43.9); Red Blood Count 3.79 M/mm3 (4.2-5.4); White Blood Count 6.2 K/mm3 (4.4-11.0)
[2023-05-07 12:06] LABS: Vitamin D,25 Hydroxy 56.9 ng/mL
[2023-05-07 12:15] LABS: AST(SGOT) 20 U/L (15-37); Alanine Aminotransfer ALT/SGPT 27 U/L (13-56); Albumin, Serum 3.4 g/dL (3.2-5.0); Alkaline Phosphatase 76 U/L (45-117); Anion Gap 3 (5-15); BUN 19 mg/dL (7-18); BUN/Creat Ratio 15.7 RATIO (10-20); Calcium,Total 8.9 mg/dL (8.5-10.1); Chloride 103 mmol/L (98-107); Cholesterol 131 mg/dL (200); Creatinine, Serum 1.21 mg/dL (0.55-1.02); EST Glomerular Filtration Rate 45 mL/min (>60); Est Glom Filt Rate - Afr Amer 54 mL/min (>60); Globulin 3.3 g/dL (2.2-4.2); Glucose 118 mg/dL (74-106); High Density Lipoprotein 56 mg/dL; Potassium 4.5 mmol/L (3.5-5.1); Protein, Total 6.7 g/dL (6.4-8.2); Sodium Level 138 mmol/L (136-145); Thyroid Stim Hormone (TSH) 2.46 uIU/mL (0.358-3.74); Triglycerides 76 mg/dL; Very Low Density Lipoprotein 15 mg/dL (5-40)
== END | disposition home or self-care (01) ==
PROVIDERS: PCP Family Medicine Geriatric Medicine; Visit Provider Family Medicine Geriatric Medicine
DX: I10 Essential (primary) hypertension (principal); E55.9 Vitamin D deficiency, unspecified
CPT/HCPCS: 36415; 80053; 80061; 82306; 84443; 85025

== ENCOUNTER → 2023-11-11 | Outpatient (CLI) | payer MEDICARE, SELFPAY ==
[2019-04-01 11:56] VITALS: BMI 21.6
[2023-11-11 10:12] LABS: Absolute Lymphocyte Count 0.84 X10^3/uL (0.83-4.51); Absolute Neutrophil Count 5.5 X10^3/uL (2.0-7.7); Basophil# 0.04 X10^3/uL; Basophil% 0.6 % (0-1); Hematocrit 35.2 % (37-47); Hemoglobin 11.7 g/dL (12.0-15.0); Lymphocyte # 0.84 X10^3/ul (0.83-4.51); Lymphocyte % 12.4 % (19-41); Mean Corp Hgb Conc 33.2 g/dL (32-36); Mean Corpuscular Volume 99.2 fL (81-99); Mean Platelet Vol. 8.8 fl (6.2-12.0); Monocyte# 0.39 X10^3/uL; Monocyte% 5.8 % (0-10); NRBC Flagged by Analyzer 0 % (0-5); Neutrophil # 5.47 X10^3/uL (2.7-7.7); Neutrophil % 80.9 % (47-70); Platelet Count 237 K/mm3 (150-450); RBC Distribution Width CV 12.9 % (11.6-14.6); RBC Distribution Width SD 47.4 fl (35.1-43.9); Red Blood Count 3.55 M/mm3 (4.2-5.4); White Blood Count 6.8 K/mm3 (4.4-11.0)
[2023-11-11 12:23] LABS: Vitamin D,25 Hydroxy 63.5 ng/mL
[2023-11-11 12:28] LABS: ALB/GLOB Ratio 1.1 RATIO (0.9-2.4); AST(SGOT) 21 U/L (15-37); Alanine Aminotransfer ALT/SGPT 33 U/L (13-56); Albumin, Serum 3.5 g/dL (3.2-5.0); Alkaline Phosphatase 77 U/L (45-117); Anion Gap 4 (5-15); BUN 21 mg/dL (7-18); BUN/Creat Ratio 17.6 RATIO (10-20); Calcium,Total 9.5 mg/dL (8.5-10.1); Chloride 104 mmol/L (98-107); Cholesterol 131 mg/dL (200); Creatinine, Serum 1.19 mg/dL (0.55-1.02); EST Glomerular Filtration Rate 46 mL/min (>60); Est Glom Filt Rate - Afr Amer 55 mL/min (>60); Globulin 3.1 g/dL (2.2-4.2); Glucose 140 mg/dL (74-106); High Density Lipoprotein 61 mg/dL; Potassium 4.4 mmol/L (3.5-5.1); Protein, Total 6.6 g/dL (6.4-8.2); Sodium Level 138 mmol/L (136-145); Thyroid Stim Hormone (TSH) 2.68 uIU/mL (0.358-3.74); Triglycerides 77 mg/dL; Very Low Density Lipoprotein 15 mg/dL (5-40)
== END | disposition home or self-care (01) ==
LOC: LAB.FUTURE 09:57 → POLAB3 09:58
PROVIDERS: PCP Family Medicine Geriatric Medicine; Visit Provider Family Medicine Geriatric Medicine
DX: I10 Essential (primary) hypertension (principal); E78.5 Hyperlipidemia, unspecified; E55.9 Vitamin D deficiency, unspecified
CPT/HCPCS: 36415; 80053; 80061; 82306; 84443; 85025

== ENCOUNTER 2023-12-28 08:00 | Outpatient (RCR) | payer MEDICARE, SELFPAY ==
[2019-04-01 11:56] VITALS: BMI 21.6
--- NOTE | 2023-11-19 16:40 | HP.SP.EV_ITS ---
Visit History Visit Info Date of Eval: 11/18/23 Visit: 1 Consulting Analyst: RENETTA History Attending Doctor: Referring Doctor: Reason for Referral: DYSPHAGIA/RX HERE Medical Diagnosis: dysphagia Previous speech therapy: No Results: Nellie is an 88 year old woman who was seen at for a swallowing evaluation. Pt was referred by her doctor due to concerns about s/s of aspiration. Pt was accommpanied by her granddaughter who helped provide history information. Pt lives with/next door to her granddaughters (Nanette & Diana). Other Relevant Medical History/Diagnoses/Surgery: Alzheimer dementia diagnosis for 6-7 years, but this may have happened before then undiagnosed. Pt had some trouble with answering questions about her history and explaining her current symptoms due to memory deficits. No known history of aspiration pneumonia. Pt had bronchitis in July 2023. Medications related to this diagnosis: List of medications on file. Pt was a light smoker in the past for about 20 years, but she does not anymore. Smoking Status: Former smoker Diagnosis Diagnosis: dysphagia Pain Is pain an issue with your current prescribed condition?: No Personal Preferred language: Luxembourg[place] Patient Allergies Allergies Allergies: Allergies Penicillins Allergy (Intermediate, Verified 08/28/23 11:43) Hives Subjective Dysphagia Symptoms Reported Symptoms/Problems with: Choking Current Diet Solids Current Diet: Regular Current Diet Liquids Current Liquids: Thin Comments dentetition: -: Dentures on top & partial on bottom. Pt wears them every day & they fit well. Pt is brushing her teeth in the morning (x1 a day). Family Comments: -: Pt's granddaughters, whom assist with her care, noticed the problem in July. They believe it may have started before, but it's getting worse. Other Complaints; - Pt has panic attacks when she chokes during meals. - Pt fatigues during meals & does not eat much of her food. She will snack during the day. - Pt will avoid tougher meats, nuts, popcorn. Pt's granddaughters tend to feed her softer foods to help her consume more. - Pt lost 5 lbs over 6 months. Objective Dysphagia Administered by Administered by: Self Thin Liquids Administred via: Cup and Straw Oral Transit: Delay > 5 seconds Gagging: No Cough: throat clear Patient Report: some hoarseness randomly after large sips of thin and delayed throat clearing. Pureed Administered via: Spoon Oral Transit: WNL Bolus clearance: fully cleared Gagging: No Cough: none observed/unable to assess Pharyngeal phase: immediate laryngeal elevation Soft & Bite sized (Mechanical) Administered via: Spoon Oral Preparation: minimal chew thrust gravity assisted Oral Transit: Delay > 5 seconds Bolus clearance: fully cleared Gagging: No Cough: none observed/unable to assess Pharyngeal phase: laryngeal elevation mildly restricted slow initiation Regular Oral Preparation: WNL Oral Transit: Delay > 10 seconds Gagging: No Cough: throat clear Pharyngeal phase: laryngeal elevation mildly restricted slow initiation Comments: Residue left in oral cavity with cookie - cleared by a liquid wash Very prolonged mastication with a beef stick (>3 mins for a small bite). Pt also became distracted while chewing and required cues to continue to chew. Swallowing Impairment Contributing Factors to Swallowing Impairment: Reduced Alertness or Attention, Difficulty Following Directions, Mastication Inefficiency and Reduced Laryngeal Excursion Impact Impact on Safety & Functioning: Risk for Aspiration and Risk for Inadequate Nutrition/Hydration Recommendations Modified Barium Swallow/Cookie Swallow Recommended: No Swallowing Treatment: Yes Diet Texture Recommendations Solids: Easy to Chew (Level 7) Liquids: Thin (Level 0) Other: Will determine a diet level after an instrumental evaluation Safety Saftey Precautions/Swallowing Recommendations (Check all that Apply): 1 to 1 Close Supervision, Feed Only when Alert, Reduce Distractions, Needs Verbal Cues to Use Recommended Strategies, Upright Position at Least 30 Minutes After Meals, Small Sips & Bites when Eating and Alternate Liquids & Solids Results Swallowing Within Normal Limits: No Swallowing Diagnosis: Dysphagia Unspecified (R13.10) Swallowing Performance Scale Swallowing Performance Scale Swallowing Performance Scale Result: 4 Mild to Moderate Reference: Neuro-QoL instrument Radiation Oncology Patient Plan Plan Plan: Will rx Pt for skilled outpatient tx to address deficits in oropharyngeal dysphagia. An instrumental evaluation (i.e.. FEES or MBSS) is required to rule out aspiration and determine an appropriate diet level secondary to s/s of aspiration observed during the evaluation. Pt would benefit from training and education re: diet tolerance checks, compensatory strategies and swallowing exercises to aid in oropharyngeal strengthening and reduce the subsequent risk of aspiration. Without skilled intervention, Pt is at risk for consuming a restrictive diet putting her at risk for aspiration pneumonia and atrophy of laryngeal musculature. Recommendations MBS: No Treatment Warranted: Yes Comment: Discussed instrumental options with the family and a FEES will be conducted to rule out aspiration and determine an appropriate diet level secondary to s/s of aspiration observed during the evaluation. Progress Prognosis: Excellent Frequency Frequency: 1x/Week Duration: 2 Months Goals that are Established Determination:: Goals will be added/modified as deemed necessary and appro priate. Therapy will be discontinued when results of re-evaluation indicate therapy is no longer needed or lack of progress has been documented. Goal #1-5 Goal #1: Pt will participate in a FEES/Modified Barium Swallow (MBS) study to objectively assess Pt?s oropharyngeal swallow function to determine the least restrictive means of nutrition and progress from participating in pharyngeal strengthening exercises. Goal #2: Pt will utilize compensatory strategies (small sips & bites, reduced distractions, alternate sips & bites, upright after meals for 30 mins) and tolerate least restrictive diet with no overt s/s of aspiration/penetration to aid in safe consumption of solid/liquids independently during bolus trials given up to min cues during measured sessions. Education Patient has Indicated that the Following Identified Educational Needs: Cognitively Impaired The Patient has indicated that they have no educational or learning abilities that may effect their care.: No Patient Instruction Patient Education: Diagnosis, Treatment Plan, Goals, Safety Precautions and Diet Level Person Taught: Family Teaching Method: Discussion Response to teaching: Verbalize understanding
--- NOTE | 2023-12-04 16:12 | HP.SPFEES ---
FEES Patient Information Date of Evaluation: 11/30/23 Time of Evaluation: 10:00 DIAGNOSIS:: Dysphagia, unspecified Referring Physician: Mayo Maravilla Chi Staff Providing this Care/Treatment:: AB Garcia Billable Minutes: 120 Subjective: Subjective:: NELLIE GRAY is an 88 year old female who presents to [facility] for participation in a Fiberoptic Endoscopic Evaluation of Swallow to objectively assess her swallow function. Nellie arrived to her appointment with her granddaughters who helped serve as historians throughout the evaluation. Nellie was informed of the risks of the procedure and agreed to the procedure. Current Diet: Drinks/Liquids:: Thin Foods:: Easy to chew Medication Administration:: orally Respiratory Status: Observation:: Resting O2 was 96 Dentation/Oral Hygiene: Observations:: Dentures on top & partial on bottom. Pt wears them every day & they fit well. Pt is brushing her teeth in the morning (x1 a day). Vocal Quality: Observations:: Hoarse Comments:: Intermittently Cognition: Observations:: Impaired and Did not impact exam Dysphagia: TX/DX History:: No Fiberoptic Endoscope: Size: 3.4 mm Nare:: Right Comments: A 3.4 mm was passed without incident through the right nare. Position During FEES: Position During FEES:: Upright Location: In Chair Anatomy: + Velopharyngeal Port Observations Movement: Yes and Symmetrical +Nasopharynx Observations Tissue Description: [place] Location: Diffuse +Oropharynx Observations: Tissue Description: [place] Location: Diffuse +Hypopharynx Observation: Tissue Description: [place] Location: Diffuse Secretions: Description:: Thin and Clear Location:: Hypopharynx Phonation: Arytenoid Adduction & Abduction: Nellie participated in pitch glides and sustained eee phonation with appropriate adduction and abduction of arytenoid cartilages and vocal folds. It was observed throughout the procedure that bilateral arytenoid cartilages would appear to have an INTERMITTENT TREMOR when Nellie was at rest between PO trials occurring at least FOUR TIMES WITHIN THE FIRST 10 MIN OF PROCEDURE. Her breathing remained WNL and her vocal quality remained hoarse as observed at baseline. Unclear if the apparent tremor would have an impact on Pt's overall swallow. Penetration-Aspiration Scale Penetration-Aspiration Scale Swallowing: :: In summary.... - Nellie's oral phase of the swallow appears to be within functional limits (WFL). The bolus typically appeared appropriately masticated and observations of Nellie while she was masticating indicate she is WFL. She does have piecemeal deglutition where she would initiate her swallow in the vallecula after transferring the bolus beyond the base of tongue. She does have multiple swallows per bite, however this did not appear to impact her overall swallow function. At times she would ask, should I chew this? when given a PO trial, so direct supervision would be warranted to ensure she attends to PO intake would be warranted. - Nellie's pharyngeal phase of the swallow is primarily marked by weak pharyngeal contraction evidenced by a continued visualization of the tissues (i.e., pink out) versus total occlusion of visual field (i.e., white out). Suspect Nellie's base of tongue function and pharyngeal stripping wave to be WFL d/t minimal, if any pharyngeal residue. Nellie's vocal fold complete adduction was visualized while she was preparing to swallow. Nellie also demonstrating an audible swallow with only liquids accompanied by a forward head movement. Of note, towards the end of the procedure, however, minimal pharyngeal residue in the laryngeal vestibule was observed which may suggest Pt's overall swallow function begins to fatigue at the end of meals (e.g., this procedure was 30 min. in length which would be typical for Nellie at home). During these times, Nellie benefited from a cued hard cough and re-swallow which helped to reduce the pharyngeal residue. - Esophageal phase cannot be fully described given the nature of this procedure, however, the UES appeared to be WFL as there was no observed retrograde flow through the sphincter as well as little to no pharyngeal residue throughout the majority of the exam until the end. Even so, suspect the residue to be d/t pharyngeal weakness. This evaluating therapist is unable to comment on the function below the UES given the limitations of this exam. Initiation:: Vallecula Swallowing Trials: Swallowing Trials Results Below: Thin Liquid: Trial 1: water Administered:: via a straw Aspiration: No - aspiration Residue: No Trial 2: water sips 20+ min. into procedure -- cued with cough+re-swallow Administered:: via a straw Aspiration: No - aspiration Residue: Yes Residue Location: Residue Location Laryngeal Vestibule PAS Score: PAS Score *2 Trial 3: Medication Pass with Water Administered:: via a straw Aspiration: No - aspiration Residue: No PAS Score: PAS Score *1 Soft & Bite Texture: Trial 1: Banana (bite sized) Aspiration: No - aspiration PAS Score: PAS Score *1 Trial 2: Banana with Peanut Butter Aspiration: No - aspiration PAS Score: PAS Score *1 [place] 3: Egg Salad [place] Aspiration: No - aspiration PAS Score: PAS Score *1 Regular Texture: Trial 1: Sofia Doone Aspiration: No - aspiration Residue: No PAS Score: PAS Score *1 Trial 2: Sofia Doone with Peanut Butter Aspiration: No - aspiration Residue: Yes Residue Location: Residue Location Vallecula PAS Score: PAS Score *1 Result: Overall, Pt demonstrating piecemeal deglutition with solid trials however this did not appear to negatively impact her swallow function. The majority of swallow initiations occurred at the level of the vallecula with one instance at the level of the aryepiglottic folds. Pt often independent with secondary swallow to clear residue in oral cavity. She only needed 1 cue throughout the study when there was trace residue observed in the vallecula on 1 trial. Strategies Comments:: Intermittent cough and reswallow = EFFECTIVE Recommendations: Recommended Diet Grade & Liquid Drinks/Liquids:: Thin Foods:: Easy to chew Medication Administration:: other (see comment) Comment: whole in puree to assist with AP transfer Supervision/Cues: Family Recommended Compensatory Strategies: Direct supervision from family, easy to chew solids or moistened harder to chew, intermittent cough with reswallow, 4-5 smaller meals per day to reduce amount of fatigue, completing recommended swallowing exercises after/in between meals not before to reduce risk of fatigue Recommend Repeat Fiberoptic Endoscopic Evaluation of Swallowing: No Prognosis: Prognosis: Good Frequency: Frequency: 1x/Week Duration: 3 Weeks Education: Education Completed: 1. Described result of evaluation. and 6. Family/caregivers demonstrate recommended strategies. Goals that are Established Determination:: Goals will be added/modified as deemed necessary and appropriate. Therapy will be discontinued when results of re-evaluation indicate therapy is no longer needed or lack of progress has been documented. Goal #1: Nellie will complete pharyngeal strengthening home exercise program of 10 repetitions of recommended exercises (i.e., effortful swallow, shaker, and jon) 3x/day given min assist from family. Goal #2: Nellie will show understanding of recommended safe swallowing strategies (i.e., intermittent cough with re-swallow, moistened harder to chew foods, 4-5 smaller meals per day to reduce amount of fatigue, completing recommended swallowing exercises after/in between meals not before to reduce risk of fatigue) and complete meal time checklist at least 4 of 7 days each week.
--- NOTE | 2023-12-28 10:34 | HP.SP.DC ---
ST Discharge Summary Discharged: Discharge: DAVID GRAY is an 88 year old female who was seen for initial speech therapy dysphagia evaluation at [facility] on 11/18/23 secondary to dx of oropharyngeal dysphagia. Pt attended initial evaluation then participated in a Fiberoptic Endoscopic Evaluation of the Swallow (FEES) procedure on 11/30/23 to objectively assess her swallow function. Recommendations included an Easy to Chew diet with thin liquids, meds whole in puree, smaller meals 4-5x a day to prevent fatigue, and then alternating bites/drinks. She then participated in 3 follow up appointments to discuss oropharyngeal and oral motor exercises to complete as a home exercise program (HEP). Her granddaughters, who are her primary caretakers, show competence of exercises and are able to assist her with completion. Pt is appropriate for d/c from speech therapy at this time. Thank you for allowing me to participate the care of your Pt. Will reevaluate at Pt?s request following script from physician should medical condition change.
== END 2023-12-28 13:35 | disposition home or self-care (01) ==
LOC: SP 08:00
PROVIDERS: PCP Family Medicine Geriatric Medicine; Referring Provider Family Medicine Geriatric Medicine; Visit Provider Family Medicine Geriatric Medicine
DX: R13.10 Dysphagia, unspecified (principal)
CPT/HCPCS: 92526; 92610; 92612

== ENCOUNTER → 2024-05-11 | Outpatient (CLI) | payer MEDICARE, SELFPAY ==
[2019-04-01 11:56] VITALS: BMI 21.6
[2024-05-11 11:18] LABS: Absolute Lymphocyte Count 0.82 X10^3/uL (0.83-4.51); Absolute Neutrophil Count 7.4 X10^3/uL (2.0-7.7); Basophil# 0.02 X10^3/uL; Basophil% 0.2 % (0-1); Eosinophil# 0.01 X10^3/uL; Eosinophils% 0.1 % (0-5); Hematocrit 35.1 % (37-47); Hemoglobin 11.6 g/dL (12.0-15.0); Lymphocyte # 0.82 X10^3/ul (0.83-4.51); Lymphocyte % 9.5 % (19-41); Mean Corpuscular Hgb 32.5 pg (27.0-32.0); Mean Corpuscular Volume 98.3 fL (81-99); Mean Platelet Vol. 9.4 fl (6.2-12.0); Monocyte# 0.35 X10^3/uL; Monocyte% 4.1 % (0-10); NRBC Flagged by Analyzer 0 % (0-5); Neutrophil # 7.41 X10^3/uL (2.7-7.7); Neutrophil % 85.8 % (47-70); Platelet Count 238 K/mm3 (150-450); RBC Distribution Width CV 12.9 % (11.6-14.6); RBC Distribution Width SD 46.2 fl (35.1-43.9); Red Blood Count 3.57 M/mm3 (4.2-5.4); White Blood Count 8.6 K/mm3 (4.4-11.0)
[2024-05-11 11:44] LABS: Vitamin D,25 Hydroxy 80.6 ng/mL
[2024-05-11 11:56] LABS: ALB/GLOB Ratio 1.2 RATIO (0.9-2.4); AST(SGOT) 18 U/L (15-37); Alanine Aminotransfer ALT/SGPT 24 U/L (13-56); Albumin, Serum 3.4 g/dL (3.2-5.0); Alkaline Phosphatase 91 U/L (45-117); Anion Gap 4 (5-15); BUN 21 mg/dL (7-18); BUN/Creat Ratio 16.5 RATIO (10-20); Calcium,Total 8.9 mg/dL (8.5-10.1); Chloride 106 mmol/L (98-107); Cholesterol 111 mg/dL (200); Creatinine, Serum 1.27 mg/dL (0.55-1.02); EST Glomerular Filtration Rate 42 mL/min (>60); Est Glom Filt Rate - Afr Amer 51 mL/min (>60); Globulin 2.9 g/dL (2.2-4.2); Glucose 176 mg/dL (74-106); High Density Lipoprotein 49 mg/dL; Potassium 4.3 mmol/L (3.5-5.1); Protein, Total 6.3 g/dL (6.4-8.2); Sodium Level 140 mmol/L (136-145); Thyroid Stim Hormone (TSH) 2.67 uIU/mL (0.358-3.74); Triglycerides 86 mg/dL; Very Low Density Lipoprotein 17 mg/dL (5-40)
== END | disposition home or self-care (01) ==
LOC: LAB 10:50
PROVIDERS: PCP Family Medicine Geriatric Medicine; Referring Provider Family Medicine Geriatric Medicine; Visit Provider Family Medicine Geriatric Medicine
DX: I10 Essential (primary) hypertension (principal); E78.5 Hyperlipidemia, unspecified; E55.9 Vitamin D deficiency, unspecified
CPT/HCPCS: 36415; 80053; 80061; 82306; 84443; 85025

== ENCOUNTER 2024-07-23 10:57 | Emergency (ER) | payer MEDICARE, SELFPAY ==
[2019-04-01 11:56] VITALS: BMI 21.6
[2024-07-23 10:58] VITALS: BP 110/51; PULSE 87; RESP 16; TEMP 36.8; O2SAT 98; BMI 24.0
--- NOTE | 2024-07-23 12:14 | EDS_ITS ---
HPI History of Present Illness Chief Complaint: Constipation Narrative Narrative: Patient is a 89-year-old female with past medical history hypertension, type 2 diabetes, hyperlipidemia who presented to the emergency department chief complaint of constipation. According to patient's family members at bedside she was recently started on a new medication and they feel that this is constipate her. They state that she has not been able to have a bowel movement. They tried [id number] stool softeners that do not seem to be helping her which prompted them to bring her here for the valuation management. Patient family ember states that there is a large piece of stool near her rectal region [facility] Medical History Essential (primary) hypertension Secondary pulmonary arterial hypertension Ischemic colitis Rectal bleeding Gastroenteritis Skin lesion Diabetes mellitus type II, controlled Hyperlipidemia Left bundle branch block Atherosclerotic heart disease of [place] coronary artery without angina pectoris Home Medications ?Medication ?Instructions ?Recorded ?Last Taken ?Type aspirin 81 mg tablet,delayed 81 mg PO QDAY [facility] 10/30/17 07/15/18 06:30 History release (Adult Aspirin Regimen) memantine 10 mg tablet 10 mg PO BID 07/23/20 Unknown History lisinopril 10 mg tablet 10 mg PO DAILY #90 tabs 04/02/21 Unknown Rx citalopram 10 mg tablet 10 mg PO DAILY 08/28/23 Unknown History levothyroxine 25 mcg tablet 25 mcg PO DAILY 08/28/23 Unknown History atorvastatin 80 mg tablet See Rx Instructions .Route 03/28/24 Unknown Rx .COMPLEX #90 tabs clopidogrel 75 mg tablet 75 mg PO QDAY blood thinner #90 04/18/24 Unknown Rx tabs labetalol 100 mg tablet 100 mg PO BID for blood pressure 05/02/24 Unknown Rx #180 TABLETS amlodipine 10 mg tablet 10 mg PO QDAY blood pressure #90 05/20/24 Unknown Rx tabs docusate sodium 100 mg capsule 100 mg PO BID 30 days #60 caps 07/23/24 Unknown Rx (Colace) polyethylene glycol 3350 17 17 g PO BID #238 grams 07/23/24 Unknown Rx gram/dose oral powder (Miralax) Allergy/AdvReac Type Severity Reaction Status Date / Time Penicillins Allergy Intermediate Hives Verified 07/23/24 10:57 Family History Mother Diabetes Hypertension Father Diabetes CVA (cerebral vascular accident) Daughter Diabetes Pulmonary hypertension Surgical History History of appendectomy History of hysterectomy History of esophagogastroduodenoscopy (EGD) (07/2018) History of colonoscopy (07/2018) History of coronary artery stent placement (12/23/17) Social History Smoking Status: Former smoker quit date: 11/16/04 how long ago did patient quit smokin11/16/2004 alcohol intake: current alcohol intake frequency: a few times a week Alcohol type: wine substance use type: does not use caffeine: Yes Type: coffee what type of physical activity do you participate in: walking and other details: tredmill frequency: 3-4 times per week duration: 15-30 minutes/day seatbelt use: always do you feel safe at home: Yes ROS ROS ED ROS Narrative Constitutional: Denies fevers, chills, headaches, lightness, dizziness Eyes: Denies change vision double vision blurry Cardiovascular: Denies chest pain or palpitations Respiratory: denies coughing wheezing shortness of breath Abdomen: Denies abdominal pain nausea vomit diarrhea admits to constipation as noted above : Denies painful urination, hematuria and polyuria Neurological: Denies numbness, wheeze, tingling Musculoskeletal: Denies back pain Skin: Denies rashes or lesions EXAM Physical Exam Narrative Exam Narrative: General: Patient lying in bed rest comfortably did not appear to be in acute distress Head: Atraumatic, normocephalic Eyes: PERRL bilateral, EOMI bilaterally, no conjunctival injection noted Neck: Soft, supple, trachea midline Cardiovascular: Regular in rhythm Abdomen: Soft, nondistended, nontender to palpation, bowel sounds present x 4 Rectal exam: Patient has firm stool noted in her rectal vault which was removed. This was brown in nature no blood or dark tarry stool noted Extremities: +5/5 strength noted in the bilateral lower extremities Neurological: Patient following commands knew that she was at [facility] years 2023 Skin: Warm, dry, intact Const Vital Signs: 07/23/24 10:58 Temperature 98.2 F Temperature Source Oral Pulse Rate 87 Respiratory Rate 16 Blood Pressure 110/51 L Blood Pressure Mean 70 Pulse Ox 98 Oxygen Delivery Method Room Air MDM MDM MDM Narrative Medical decision making narrative: Patient is a 89-year-old female who presented to the emergency department with a chief complaint of constipation. Did a rectal exam on her once again and noted that there was firm stool in the rectal vault that was removed. Will perform a Fleet enema. Patient had enema performed and had a large bowel movement. She would like to go home at this point time. Patient will be given prescription for MiraLAX and Colace and was instructed take this twice a day until having consistent bowel movements and back off as tolerated from there. She is advised follow-up with her primary care physician outpatient setting. She is encouraged return with worsening symptoms or other concerns. Family numbers are also agreeable this plan at bedside they would like to go home all question concerns answered she was discharged home in stable condition. Discharge Plan Triage Chief Complaint: Constipation ED Provider: Aubrey Quintanilla Dx/Rx/DC Orders Clinical Impression: Constipation Prescriptions: New docusate sodium [Colace] 100 mg capsule 100 mg PO BID 30 Days Qty: 60 0RF polyethylene glycol 3350 [Miralax] 17 gram/dose powder 17 g PO BID Qty: 238 0RF No Action aspirin [Adult Aspirin Regimen] 81 mg tablet,delayed release (/EC) 81 mg PO QDAY Patient Comments: instructed to stop on 09/11/18 for endo on 09/14/[address] Saucedo memantine 10 mg tablet 10 mg PO BID lisinopril 10 mg tablet 10 mg PO DAILY Qty: 90 3RF citalopram 10 mg tablet 10 mg PO DAILY levothyroxine 25 mcg tablet 25 mcg PO DAILY atorvastatin 80 mg tablet See Rx Instructions .ROUTE .COMPLEX Qty: 90 3RF Dose Instruction: take 1 tablet by mouth at bedtime for cholesterol Rx Instructions: take 1 tablet by mouth at bedtime for cholesterol clopidogrel 75 mg tablet 75 mg PO QDAY Qty: 90 3RF labetalol 100 mg tablet 100 mg PO BID Qty: 180 3RF amlodipine 10 mg tablet 10 mg PO QDAY Qty: 90 3RF Primary Care Provider: Mayo Maravilla Chi Referrals: Mayo Maravilla Chi, MD [Primary Care Provider] - Activity Restrictions/Additional Instructions: Follow-up with your primary care physician outpatient setting. Take the Colace and MiraLAX twice a day until having regular bowel movements and then back off. return with worsening symptoms or any other concerns Print Language: Latvian Disposition Disposition: Home, Self Care
[2024-07-23] MEDS: Fleet Enema 133 ML RC (12:34)
[2024-07-23 14:04] VITALS: BP 110/51; PULSE 78; RESP 16; TEMP 36.8; O2SAT 98
== END 2024-07-23 14:06 | disposition home or self-care (01) ==
PROVIDERS: Emergency Provider Emergency Medicine; PCP Family Medicine Geriatric Medicine; Visit Provider Emergency Medicine
DX: K59.00 Constipation, unspecified (principal); I27.21 Secondary pulmonary arterial hypertension; E11.9 Type 2 diabetes mellitus without complications; I25.10 Atherosclerotic heart disease of native coronary artery without angina pectoris; I10 Essential (primary) hypertension; E78.5 Hyperlipidemia, unspecified; Z79.82 Long term (current) use of aspirin; Z79.02 Long term (current) use of antithrombotics/antiplatelets; Z79.890 Hormone replacement therapy; Z79.899 Other long term (current) drug therapy; Z87.891 Personal history of nicotine dependence
CPT/HCPCS: 99282

== ENCOUNTER → 2024-11-23 | Outpatient (CLI) | payer MEDICARE, SELFPAY ==
[2019-04-01 11:56] VITALS: BMI 21.6
[2024-11-23 11:37] LABS: Absolute Lymphocyte Count 0.89 X10^3/uL (0.83-4.51); Absolute Neutrophil Count 5.9 X10^3/uL (2.0-7.7); Basophil# 0.04 X10^3/uL; Basophil% 0.5 % (0-1); Eosinophil# 0.03 X10^3/uL; Eosinophils% 0.4 % (0-5); Hematocrit 36.9 % (37-47); Hemoglobin 12.3 g/dL (12.0-15.0); Lymphocyte # 0.89 X10^3/ul (0.83-4.51); Lymphocyte % 12.2 % (19-41); Mean Corp Hgb Conc 33.3 g/dL (32-36); Mean Corpuscular Hgb 32.8 pg (27.0-32.0); Mean Corpuscular Volume 98.4 fL (81-99); Mean Platelet Vol. 9.3 fl (6.2-12.0); Monocyte% 5.5 % (0-10); NRBC Flagged by Analyzer 0 % (0-5); Neutrophil # 5.92 X10^3/uL (2.7-7.7); Neutrophil % 81.1 % (47-70); Platelet Count 282 K/mm3 (150-450); RBC Distribution Width CV 12.4 % (11.6-14.6); RBC Distribution Width SD 44.7 fl (35.1-43.9); Red Blood Count 3.75 M/mm3 (4.2-5.4); White Blood Count 7.3 K/mm3 (4.4-11.0)
[2024-11-23 12:08] LABS: Vitamin D,25 Hydroxy 87.9 ng/mL
[2024-11-23 12:24] LABS: ALB/GLOB Ratio 1.1 RATIO (0.9-2.4); AST(SGOT) 16 U/L (15-37); Alanine Aminotransfer ALT/SGPT 19 U/L (13-56); Albumin, Serum 3.5 g/dL (3.2-5.0); Alkaline Phosphatase 85 U/L (45-117); Anion Gap 6 (5-15); BUN 19 mg/dL (7-18); BUN/Creat Ratio 16.2 RATIO (10-20); Calcium,Total 9.5 mg/dL (8.5-10.1); Chloride 102 mmol/L (98-107); Cholesterol 139 mg/dL (200); Creatinine, Serum 1.17 mg/dL (0.55-1.02); EST Glomerular Filtration Rate 46 mL/min (>60); Est Glom Filt Rate - Afr Amer 56 mL/min (>60); Globulin 3.1 g/dL (2.2-4.2); Glucose 119 mg/dL (74-106); High Density Lipoprotein 54 mg/dL; Potassium 4.3 mmol/L (3.5-5.1); Protein, Total 6.6 g/dL (6.4-8.2); Sodium Level 138 mmol/L (136-145); Triglycerides 135 mg/dL; Very Low Density Lipoprotein 27 mg/dL (5-40)
== END | disposition home or self-care (01) ==
LOC: LAB 10:59
PROVIDERS: PCP Family Medicine Geriatric Medicine; Referring Provider Family Medicine Geriatric Medicine; Visit Provider Family Medicine Geriatric Medicine
DX: I10 Essential (primary) hypertension (principal); E78.5 Hyperlipidemia, unspecified; E55.9 Vitamin D deficiency, unspecified
CPT/HCPCS: 36415; 80053; 80061; 82306; 84443; 85025

== ENCOUNTER → 2024-12-07 | Outpatient (CLI) | payer MEDICARE, SELFPAY ==
[2019-04-01 11:56] VITALS: BMI 21.6
--- NOTE | 2024-12-07 13:51 | CDU_ITS ---
Reason For Study Reason For Study: Carotid artery disease Rt. Velocities/BP Lt. Velocities/BP Prox CCA 48.2/7.2 cm/sec. Prox CCA 79/11.4 cm/sec. Mid CCA 61.3/9 cm/sec. Mid CCA 92.5/12.6 cm/sec. Dist CCA 57.8/9.9 cm/sec. Dist CCA 85.1/11.4 cm/sec. Prox ICA 180.7/22.6 cm/sec. Prox ICA 77.2/9.4 cm/sec. Mid ICA 71.8/9.7 cm/sec. Mid ICA 74/12.6 cm/sec. Dist ICA 54.2/11.3 cm/sec. Dist ICA 48.7/6.9 cm/sec. Rt. ICA/CCA = 2.95. Lt. ICA/CCA = 0.83. Prox ECA 249.9/7.4 cm/sec. Prox ECA 156.5/5 cm/sec. Rt. Vert. 38.1/8.8 cm/sec. Lt. Vert. 38.8/10.2 cm/sec. Right Extracranial There is homogeneous, smooth atherosclerotic plaque noted in the right common carotid artery. There is heterogeneous, irregular atherosclerotic plaque noted in the right internal carotid artery. There is heterogeneous, irregular atherosclerotic plaque noted in the right external carotid artery. Antegrade flow is noted in the right vertebral artery. Left Extracranial There is homogeneous, smooth atherosclerotic plaque noted in the left common carotid artery. There is heterogeneous, irregular atherosclerotic plaque noted in the left internal carotid artery. There is heterogeneous, irregular atherosclerotic plaque noted in the left external carotid artery. Antegrade flow is noted in the left vertebral artery. Procedure This is a Carotid Duplex examination using B-mode, color flow and specral Doppler. Carotid Duplex 39078. Exam performed in department. VL/Carotid Duplex Ultrasound Interpretation Summary Moderate (50-69%) stenosis right extracranial internal carotid. Mild (<50%) stenosis left extracranial internal carotid. Patent and antegrade vertebrals bilaterally. Ordering Physician: Aamir Roper Referring Physician: Mayo Maravilla Chi Performed By: Melissa Clement RVT
== END | disposition home or self-care (01) ==
LOC: CVS 13:48
PROVIDERS: PCP Family Medicine Geriatric Medicine; Referring Provider Internal Medicine Cardiovascular Disease; Visit Provider Internal Medicine Cardiovascular Disease
DX: I77.9 Disorder of arteries and arterioles, unspecified (principal); R09.89 Other specified symptoms and signs involving the circulatory and respiratory systems
CPT/HCPCS: 93880

== ENCOUNTER → 2025-05-25 | Outpatient (CLI) | payer MEDICARE, SELFPAY ==
[2019-04-01 11:56] VITALS: BMI 21.6
[2025-05-25 17:00] LABS: Hematocrit 35.9 % (37-47); Hemoglobin 12.5 g/dL (12.0-15.0); Immature Granulocytes Count 0.040 X10^3/uL (0.0-0.0); Mean Corp Hgb Conc 34.8 g/dL (32-36); Mean Corpuscular Volume 96.2 fL (81-99); Mean Platelet Vol. 9.2 fl (6.2-12.0); NRBC Flagged by Analyzer 0 % (0-5); Platelet Count 276 K/mm3 (150-450); RBC Distribution Width CV 12.1 % (11.6-14.6); RBC Distribution Width SD 43.3 fl (35.1-43.9); Red Blood Count 3.73 M/mm3 (4.2-5.4); White Blood Count 8.8 K/mm3 (4.4-11.0)
[2025-05-25 17:52] LABS: AST(SGOT) 19 U/L (<=31); Alanine Aminotransfer ALT/SGPT 20 U/L (<=34); Albumin, Serum 4.1 g/dL (3.4-4.8); Alkaline Phosphatase 90 U/L (35-104); Anion Gap 13 (5-15); BUN 23 mg/dL (4-19); BUN/Creat Ratio 16.7 RATIO (10-20); Calcium,Total 10.0 mg/dL (7.6-11.0); Carbon Dioxide 24.9 mmol/L (21.0-32.0); Chloride 97 mmol/L (98-108); Cholesterol 213 mg/dL (<=200); Globulin 2.6 g/dL (2.2-4.2); Glucose 200 mg/dL (70-99); Low Density Lipoprotein Calc. 122 mg/dL; Potassium 4.8 mmol/L (3.3-5.1); Triglycerides 228 mg/dL; Very Low Density Lipoprotein 46 mg/dL (5-40); Vitamin D,25 Hydroxy 74.2 ng/mL (30-100); cholesterol:hdl ratio screen 4.73
[2025-05-26 00:36] LABS: Xtra Tube Kwok EXTRA TUBE
== END | disposition home or self-care (01) ==
LOC: LAB 16:35
PROVIDERS: PCP Family Medicine Geriatric Medicine; Referring Provider Family Medicine Geriatric Medicine; Visit Provider Family Medicine Geriatric Medicine
DX: E78.5 Hyperlipidemia, unspecified (principal); E55.9 Vitamin D deficiency, unspecified; I10 Essential (primary) hypertension
CPT/HCPCS: 36415; 80053; 80061; 82306; 84443; 85025